=== PATIENT | male | born 1950 | race Caucasian/White ===

== ENCOUNTER 2020-05-07 08:05 | Outpatient (REF) | payer MEDICARE, SELFPAY | END 2020-05-07 08:06 | disposition home or self-care (01) | LOC: HO.LAB 08:05 | PROVIDERS: Visit Provider Internal Medicine | DX: Z20.822 Contact with and (suspected) exposure to COVID-19 (principal) | CPT/HCPCS: 36415; C9803; U0003; U0005 ==

== ENCOUNTER 2020-08-06 10:25 | Outpatient (REF) | payer MEDICARE, SELFPAY ==
[2020-08-06 11:25] LABS: Estimated Average Glucose 160 mg/dL; Hemoglobin A1c % 7.2 %
[2020-08-06 12:31] LABS: Alanine Aminotransferase 21 U/L (0-40); Albumin Level 4.3 g/dL (3.5-5.0); Alkaline Phosphatase 85 U/L (39-117); Aspartate Amino Transferase 17 U/L (5-37); Bilirubin Direct 0.3 mg/dL (0.0-0.5); Bilirubin Total 0.6 mg/dL (0.0-1.0); Cholesterol 158 mg/dL; Glucose Fasting 143 mg/dL (60-99); HDL Cholesterol 62 mg/dL; LDL Cholesterol Calculated 86 mg/dl; Total Protein 6.9 g/dL (6.5-8.0); Triglycerides 52 mg/dL
[2020-08-06 13:30] LABS: Reflex LDLD? No
== END 2020-08-06 10:26 | disposition home or self-care (01) ==
LOC: HO.LNP 10:25
PROVIDERS: Visit Provider Internal Medicine
DX: E78.00 Pure hypercholesterolemia, unspecified (principal); E11.40 Type 2 diabetes mellitus with diabetic neuropathy, unspecified
CPT/HCPCS: 80061; 80076; 82947; 83036

== ENCOUNTER 2020-11-05 11:01 | Outpatient (REF) | payer MEDICARE, SELFPAY ==
--- NOTE | ~2020-11-05 | CT_ITS ---
EXAMINATION: CT CHEST WITHOUT CONTRAST CLINICAL INFORMATION: Lung nodule COMPARISON: Previous chest CT most recent November 2019 TECHNIQUE: Multidetector volumetric CT imaging of the chest was done. Axial MIP volume rendering provided. Sagittal and coronal reformatted images were obtained. This CT examination was performed using dose optimization techniques as appropriate, variously including the following: *Automated exposure control *Adjustment of mA and/or kV according to patient size (this includes techniques or standardized protocols for targeted exams where dose is matched to indication/reason for exam; i.e. extremities or head) *Use of iterative reconstruction technique DLP: 178 mGy-cm FINDINGS: LUNGS: The small pulmonary nodules are stable. Largest pulmonary nodule is a 3 mm calcified right upper lobe nodule axial image 260 series 7. There is evidence of mild paraseptal emphysema. There is evidence of mild biapical pleural parenchymal scarring. MEDIASTINUM: The heart does not appear enlarged. There is severe coronary artery calcification. There is no pericardial effusion. The thoracic aorta is upper normal in size tortuous. PLEURA: There is no pleural effusion. No pleural mass or thickening. AXILLA: There are small bilateral axillary lymph nodes that are stable. No chest wall mass or enlarged axillary lymph nodes are seen. UPPER ABDOMEN: Unremarkable. OSSEOUS STRUCTURES: There are degenerative changes of the spine. There are postsurgical changes to the cervical spine. CT/CT chest wo con IMPRESSION: Stable small pulmonary nodules. Mild emphysema. Severe coronary artery calcification. Upper normal-sized thoracic aorta.
== END 2020-11-05 11:02 | disposition home or self-care (01) ==
LOC: HO.CT 11:01
PROVIDERS: PCP Internal Medicine; Visit Provider Internal Medicine
DX: R91.1 Solitary pulmonary nodule (principal)
CPT/HCPCS: 71250

== ENCOUNTER 2020-11-07 10:11 | Outpatient (REF) | payer MEDICARE, SELFPAY | END 2020-11-07 10:12 | disposition home or self-care (01) | LOC: HO.LAB 10:11 | PROVIDERS: PCP Internal Medicine; Visit Provider Internal Medicine | DX: Z20.822 Contact with and (suspected) exposure to COVID-19 (principal) | CPT/HCPCS: C9803; U0003; U0005 ==

== ENCOUNTER 2020-11-10 10:39 | Emergency (ER) | payer MEDICARE, SELFPAY ==
--- NOTE | ~2020-11-10 | MR_ITS ---
EXAMINATION: MR LUMBAR SPINE WITHOUT CONTRAST CLINICAL INFORMATION: History of ruptured disc. Worsening back pain. COMPARISON: CT scan of the abdomen and pelvis 06/05/2011. TECHNIQUE: MRI of the lumbar spine was obtained using routine sequences without contrast. FINDINGS: Alignment is normal. Vertebral body heights are preserved. There are mixed degenerative endplate changes at L3-L4, L4-L5, and L5-S1. There is loss of intervertebral disc height and T2 signal intensity at multiple levels related to disc degeneration. The tip of the conus medullaris is located at T12-L1. No mass effect on the conus. Visualized distal cord signal intensity is normal. At L1-L2 there is a central annular fissure associated with a bulging disc. No canal stenosis. No mass effect on the traversing or foraminal nerve roots. At L2-L3 there is a diffusely bulging disc. Bilateral facet degenerative change. Mild canal stenosis. Symmetric subarticular zone narrowing causes abutment of both traversing L3 nerve roots. No foraminal nerve root compression. At L3-L4 there is a large complex disc extrusion with a possible sequestered disc fragment located along the left dorsal aspect of the canal causing circumferential compression of the thecal sac effectively resulting in severe stenosis. There is also 1.3 cm caudal subligamentous extension of extruded disc material along the right ventrolateral surface of the canal, well depicted on axial T2 image 17 of 28 series 6. No foraminal nerve root compression. At L4-L5 there is a shallow central protrusion superimposed upon a bulging disc. Advanced bilateral facet degenerative change. No canal stenosis. No substantial mass effect on the traversing or foraminal nerve roots. At L5-S1 there is a broad shallow central extrusion with 0.5 cm caudal subligamentous extension of extruded disc material. Bilateral facet degenerative change. There is subarticular zone narrowing causing abutment of the left traversing S1 nerve root. Mild mass effect on both L5 foraminal nerve roots. Limited visualization of the retroperitoneal anatomy reveals a well marginated benign-appearing cystic lesion within the right kidney. Psoas and paraspinal muscle groups are symmetric. MR/MR lumbar spine wo con IMPRESSION: There is a complex disc herniation at L3-L4 with a possible sequestered disc fragment located along the left dorsal aspect of the canal causing circumferential compression of the thecal sac effectively resulting in severe stenosis. There is also caudal subligamentous propagation of disc material along the right ventrolateral aspect of the canal.
[2020-11-10 11:03] VITALS: BP 123/85; PULSE 95; RESP 16; TEMP 37.1; O2SAT 95; BMI 24.7
[2020-11-10] MEDS: Ondansetron ODT 4 MG TAB.RAPDIS TRANSLINGU (11:51)
[2020-11-10] MEDS: oxyCODONE HCl Immed Release 5 MG TABLET PO (11:51)
--- NOTE | 2020-11-10 11:53 | PC.NURSE ---
mri screening form completed
[2020-11-10 12:10] LABS: MANUAL DIFF FLAG NO
[2020-11-10 12:13] LABS: Basophils Percent Auto 0.3 % (0-2); Eosinophils Absolute Auto 0.1 X10*3/uL (0.0-0.4); Eosinophils Percent Auto 1.7 % (0-4); Hematocrit 44.4 % (42-52); Hemoglobin 15.2 g/dl (14.0-18.0); Imm Gran Abs Auto 0.02 X10*3/uL (0.00-0.03); Imm Gran Pct Auto 0.3 % (0.0-0.4); Lymphocytes Absolute Auto 2.3 X10*3/uL (1.2-4.9); Lymphocytes Percent Auto 31.7 % (20-40); Mean Corpuscular HGB Conc 34.2 g/dl (31.0-36.0); Mean Corpuscular Hemoglobin 31.9 pg (27.0-33.0); Mean Corpuscular Volume 93.1 fL (80-98); Mean Platelet Volume 9.5 fL (9.4-12.4); Monocytes Absolute Auto 0.8 X10*3/uL (0.1-1.2); Monocytes Percent Auto 11.7 % (2-11); Neutrophils Absolute Auto 3.9 X10*3/uL (2.0-8.3); Neutrophils Percent Auto 54.3 % (45-73); Platelet Count 202 X10*3/uL (160-400); Red Blood Count 4.77 X10*6/uL (4.60-5.80); Red Cell Distribution Width 13.2 % (11.0-16.0); White Blood Count 7.1 X10*3/uL (4.8-10.8)
[2020-11-10 12:19] LABS: Prothrombin Time 11.5 SEC (9.9-13.0)
--- NOTE | 2020-11-10 12:28 | ED_ITS ---
HPI - Back Pain/Injury General Chief Complaint: Back Pain/Injury Stated Complaint: Sciatica Time Seen by Provider: 11/10/20 11:29 Source: patient Mode of arrival: ambulatory Limitations: no limitations History of Present Illness HPI Narrative: 70-year-old male with a past medical history of a ruptured Disc with a past surgical history of Laminectomy 20 years ago presenting to the ED with complaints of acute on chronic worsening lower back/right buttocks pain radiating to his right foot since yesterday worse today with numbness to the right leg and a limping gait. He reports he has intermittent acute on chronic lower back/right buttocks pain radiating to his right lower extremity where he usually takes Tylenol and muscle relaxers and it takes away his pain although he reports he has taken multiple tablets of Tylenol and muscle relaxers over the past 24 hours and no symptomatic relief at all. Therefore he came here for further evaluation and treatment. MD elicited complaint: back pain Pertinent past history: prior back pain, kidney stones and back surgery Onset (ago): day(s) (Since yesterday worse today) Timing: constant and progressively worsening Severity: severe Pain scale (0-10): 10 Similar Symptoms Previously: Yes Quality: sharp and aching Location: sacrum (Right buttocks) Radiation: right upper leg and right leg below the knee Exacerbating factors: movement and walking Relieving factors: none Associated symptoms: numbness and difficulty walking (Limping gait to right lower extremity) Treatments prior to arrival: other (See above) Work related injury: No Related Data Previous Rx's Medication Instructions Recorded acetaminophen 500 mg tablet 1,000 mg PO QID PRN #14 tab 11/10/20 (Tylenol Extra Strength) diazepam 10 mg tablet (Valium) 10 mg PO TID PRN #10 tab 11/10/20 ibuprofen 800 mg tablet 800 mg PO Q8H PRN #14 tab 11/10/20 ondansetron HCl 4 mg tablet 4 mg PO Q8H PRN #14 tab 11/10/20 (Zofran) oxycodone 5 mg tablet 5 mg PO BID PRN #10 tab 11/10/20 prednisone 20 mg tablet 40 mg PO DAILY 5 Days #10 tab 11/10/20 Allergies Allergy/AdvReac Type Severity Reaction Status Date / Time No Known Allergies Allergy Unverified 12/22/19 15:35 Review of Systems Review of Systems: Constitutional : No trauma, No Weight loss, No Fever, No Chills, ENT/Mouth : No Hearing loss, No Ear Pain, No Nasal Congestion, No Sinus Pain, No Hoarseness, No sore throat, No Rhinorrhea, No Swallowing Difficulty Cardiovascular : No Chest Pain, No SOB Respiratory : No Cough, No Dyspnea Gastrointestinal : No Nausea, No Vomiting, No Diarrhea, No abdominal Pain, No Hematochezia, No Melena Genitourinary : No Dysuria, No Urinary Frequency, No Hematuria, No Urinary or Bowel Incontinence/retention Musculoskeletal : Positive Back pain, No neck pain, No joint stiffness, No joint swelling Skin : No Skin Lesions, No rash or signs of infection Neuro : Positive right lower extremity numbness/paresthesia, No Weakness, No headache, no loss of bowel or bladder incontinence, no saddle anesthesia, Focal weakness, No radiation Denies history of IV drug usage. Yes all other systems are reviewed and are negative PMFSH Past Medical History Attestation statement: The following information was validated with the patient. Medical History Diabetes Hypertension Kidney stone Sciatica Surgical History History of hernia surgery History of laminectomy Previous back surgery Social History Social History Alcohol intake: never Use of substances other than those prescribed or required for medical reasons: No Advance Directives: No Advance Directives Information Provided: Yes Physical Exam Vital Signs: Vital Signs: Last Vital Signs Temp 98.7 F 11/10/20 11:03 Pulse 95 11/10/20 11:03 Resp 16 11/10/20 11:03 BP 123/85 11/10/20 11:03 Pulse Ox 95 11/10/20 11:03 Body Mass Index 24.7 vital signs have been reviewed as normal and appeared to be correct. Blood pressure normal. Heart rate normal. Respiration rate normal. Temperature normal. Oxygen saturation normal. Appearance: Alert. Oriented X3. Patient appears to be in pain otherwise no other acute distress. Head: Normal external exam. Normocephalic. Atraumatic. Eyes: PERRLA. EOMI. Conjunctiva and sclera normal. Eyelids normal. ENT: Pharynx normal. Uvula midline. Moist mucous membranes. Neck: Normal inspection. Neck supple. FROM. No adenopathy. No meningeal signs. CVS: Normal heart rate and rhythm. Heart sound normal. No murmurs noted. Pulses normal throughout. Respiratory: No respiratory distress. Painless inspiration. Breath sounds normal. No wheezes/rales/rhonchi noted. Chest nontender. No accessory muscle usage noted or decreased air movement noted. Abdomen: Soft and nontender. Bowel sounds normal in all 4 quadrants. No distention noted. No organomegaly noted. No visible injury noted. Back: No CVA tenderness. Full range of motion noted. No obvious deformities, or edema. Mild para-spinal muscular tenderness from lumbar region to coccyx. Full ROM in back and lower extremities. 5/5 strength hip extension/flexion, abduction, adduction. Mild Lumbar pain with hip flexion against resistance. Straight leg raise test positive on right; Straight leg raise test negative on left; Reflexes normal ankle and knee bilaterally; EHL motor strength normal bilaterally. No rashes/lesion/induration/fluctuance or signs infection noted. : Supervised by LEAH Brown. Normal external rectal exam normal sensation/normal sphincter tone. Skin: Skin warm and dry. Normal skin color. Normal skin turgor. No rashes/lesions/lacerations noted. Extremities: No lower extremity edema. Extremities exhibit normal range of motion. Extremities nontender. Neuro: Oriented X 3. No motor deficit. No sensory deficit. Reflexes normal. Patient has a limping gait to the right lower extremity. Course Course Course Narrative: Pt c likely muscular pain, but could be herniated disc. Noelle ent reports numbness to right lower extremity although has sensation with soft and hard palpation. He has a limping gait to the right lower extremity otherwise within normal limits. He has a normal rectal exam/normal sensation to the rectum and a normal sphincter tone. Not c/w AAA/epidural abscess/dissection. Patient did have a history of ruptured Disc with similar symptoms to today in the past 20 years ago with surgery therefore will obtain an MRI of lumbar spine without contrast otherwise No high risk Hx (Incont, fever, immunosupp, recent surgery/LP, coag, signif trauma, wt loss, puls mass, hx/o Ca, TB, or IVDU). Not c/w Pyelo/UTI/kidney stone/spinal fx. Not cauda equina syndrome. Will provide symptomatic treatment 5 mg oxycodone and 4 mg of Zofran obtain some basic labs along with MRI lumbar spine and re-evaluate. Reevaluation(s) Reevaluation #1: - labs reviewed and within normal limits. UA within normal l imits no evidence of UTI. - MRI of lumbar spine revealed chronic changes and multiple herniated disc not consistent with cauda equina therefore at this time I gave a copy of the MRI results to the patient can bring it to his PCP so they can refer him to a customer contact specialist and will DC home with symptomatic treatment instructions to return if any new or worsening symptoms to follow up with primary care provider on Thursday as he reported. Patient understands agrees with this plan Time: 14:15 MDM - Back Pain/Injury Medical Records Attestation: I reviewed the patient's medical records. Lab Data Attestation: I reviewed the patient's lab results. Result diagrams: 11/10/20 12:05 11/10/20 12:05 Labs: Lab Results 11/10/20 11/10/20 11/10/20 Range/Units 12:05 12:05 12:05 WBC 7.1 (4.8-10.8) X10*3/uL RBC 4.77 (4.60-5.80) X10*6/uL Hgb 15.2 (14.0-18.0) g/dl Hct 44.4 (42-52) % MCV 93.1 (80-98) fL MCH 31.9 (27.0-33.0) pg MCHC 34.2 (31.0-36.0) g/dl RDW 13.2 (11.0-16.0) % Plt Count 202 (160-400) X10*3/uL MPV 9.5 (9.4-12.4) fL Immature Gran % (Auto) 0.3 (0.0-0.4) % Neut % (Auto) 54.3 (45-73) % Lymph % (Auto) 31.7 (20-40) % [place] % (Auto) 11.7 H (2-11) % Eos % (Auto) 1.7 (0-4) % Baso % (Auto) 0.3 (0-2) % Lymph # (Auto) 2.3 (1.2-4.9) X10*3/uL [place] # (Auto) 0.8 (0.1-1.2) X10*3/uL Eos # (Auto) 0.1 (0.0-0.4) X10*3/uL Baso # (Auto) 0.0 (0.0-0.2) X10*3/uL Abs Immat Gran (auto) 0.02 (0.00-0.03) X10*3/uL Absolute Neuts (auto) 3.9 (2.0-8.3) X10*3/uL Absolute Nucleated RBC 0.000 (0.0-0.012) X10*3/uL Nucleated RBC % (auto) 0.0 (0.0-0.2) /100WBC PT 11.5 (9.9-13.0) SEC INR 1.0 (0.9-1.1) Sodium 138 (135-145) mmol/L Potassium 4.2 (3.3-5.1) mmol/L Chloride 105 (96-108) mmol/L Carbon Dioxide 24 (22-29) mmol/L Anion Gap 13 (12-20) BUN 15 (9-16) mg/dL Creatinine 0.84 (0.5-1.4) mg/dL Estim Creat Clear Calc 84.1 Estimated GFR > 60 Random Glucose 121 H (60-115) mg/dL Calcium 9.3 (8.4-10.2) mg/dL Magnesium 1.9 (1.6-2.6) mg/dL Total Bilirubin 0.4 (0.0-1.0) mg/dL AST 20 (5-37) U/L ALT 25 (0-40) U/L Alkaline Phosphatase 76 (39-117) U/L Total Protein 6.5 (6.5-8.0) g/dL Albumin 3.9 (3.5-5.0) g/dL Urine Color Urine Appearance Urine pH (5.0-8.0) Ur Specific [place] (1.005-1.025) Urine Protein (NEG-TRACE) MG/DL Urine Glucose (UA) (NEG) MG/DL Urine Ketones (NEG) MG/DL Urine Blood (NEG) Urine Nitrite (NEG) Ur Leukocyte Esterase (NEG) 11/10/20 Range/Units 13:41 WBC (4.8-10.8) X10*3/uL RBC (4.60-5.80) X10*6/uL Hgb (14.0-18.0) g/dl Hct (42-52) % MCV (80-98) fL MCH (27.0-33.0) pg MCHC (31.0-36.0) g/dl RDW (11.0-16.0) % Plt Count (160-400) X10*3/uL MPV (9.4-12.4) fL Immature Gran % (Auto) (0.0-0.4) % Neut % (Auto) (45-73) % Lymph % (Auto) (20-40) % [place] % (Auto) (2-11) % Eos % (Auto) (0-4) % Baso % (Auto) (0-2) % Lymph # (Auto) (1.2-4.9) X10*3/uL [place] # (Auto) (0.1-1.2) X10*3/uL Eos # (Auto) (0.0-0.4) X10*3/uL Baso # (Auto) (0.0-0.2) X10*3/uL Abs Immat Gran (auto) (0.00-0.03) X10*3/uL Absolute Neuts (auto) (2.0-8.3) X10*3/uL Absolute Nucleated RBC (0.0-0.012) X10*3/uL Nucleated RBC % (auto) (0.0-0.2) /100WBC PT (9.9-13.0) SEC INR (0.9-1.1) Sodium (135-145) mmol/L Potassium (3.3-5.1) mmol/L Chloride (96-108) mmol/L Carbon Dioxide (22-29) mmol/L Anion Gap (12-20) BUN (9-16) mg/dL Creatinine (0.5-1.4) mg/dL Estim Creat Clear Calc Estimated GFR Random Glucose (60-115) mg/dL Calcium (8.4-10.2) mg/dL Magnesium (1.6-2.6) mg/dL Total Bilirubin (0.0-1.0) mg/dL AST (5-37) U/L ALT (0-40) U/L Alkaline Phosphatase (39-117) U/L Total Protein (6.5-8.0) g/dL Albumin (3.5-5.0) g/dL Urine Color YELLOW Urine Appearance CLEAR Urine pH 6.0 (5.0-8.0) Ur Specific [place] 1.020 (1.005-1.025) Urine Protein TRACE (NEG-TRACE) MG/DL Urine Glucose (UA) NEG (NEG) MG/DL Urine Ketones NEG (NEG) MG/DL Urine Blood NEG (NEG) Urine Nitrite NEG (NEG) Ur Leukocyte Esterase NEG (NEG) Imaging Data MRI of lumbar spine: Attestation: I personally reviewed and interpreted this imaging study as follows: Radiologist's impression: FINDINGS: Alignment is normal. Vertebral body heights are preserved. There are mixed degenerative endplate changes at L3-L4, L4-L5, and L5-S1. There is loss of intervertebral disc height and T2 signal intensity at multiple levels related to disc degeneration. The tip of the conus medullaris is located at T12-L1. No mass effect on the conus. Visualized distal cord signal intensity is normal. At L1-L2 there is a central annular fissure associated with a bulging disc. No canal stenosis. No mass effect on the traversing or foraminal nerve roots. At L2-L3 there is a diffusely bulging disc. Bilateral facet degenerative change. Mild canal stenosis. Symmetric subarticular zone narrowing causes abutment of both traversing L3 nerve roots. No foraminal nerve root compression. At L3-L4 there is a large complex disc extrusion with a possible sequestered disc fragment located along the left dorsal aspect of the canal causing circumferential compression of the thecal sac effectively resulting in severe stenosis. There is also 1.3 cm caudal subligamentous extension of extruded disc material along the right ventrolateral surface of the canal, well depicted on axial T2 image 17 of 28 series 6. No foraminal nerve root compression. At L4-L5 there is a shallow central protrusion superimposed upon a bulging disc. Advanced bilateral facet degenerative change. No canal stenosis. No substantial mass effect on the traversing or foraminal nerve roots. At L5-S1 there is a broad shallow central extrusion with 0.5 cm caudal subligamentous extension of extruded disc material. Bilateral facet degenerative change. There is subarticular zone narrowing causing abutment of the left traversing S1 nerve root. Mild mass effect on both L5 foraminal nerve roots. Limited visualization of the retroperitoneal anatomy reveals a well marginated benign-appearing cystic lesion within the right kidney. Psoas and paraspinal muscle groups are symmetric. MR/MR lumbar spine wo con IMPRESSION: There is a complex disc herniation at L3-L4 with a possible sequestered disc fragment located along the left dorsal aspect of the canal causing circumferential compression of the thecal sac effectively resulting in severe stenosis. There is also caudal subligamentous propagation of disc material along the right ventrolateral aspect of the canal. Critical Care Time Critical Care Time Critical Care Time: Yes Total Critical Care Time: 60 Attestation: I personally attest to this time spent taking care of the patient Discharge Plan Discharge Clinical Impression: Sciatica, Lumbar radiculopathy, Herniated disc Patient Disposition: Home, Self-Care Instructions: Lumbar Disc Herniation (ED), Lower Back Exercises (ED) Prescriptions: New ibuprofen 800 mg tablet 800 mg PO Q8H PRN (Reason: pain) Qty: 14 RF: 0 ondansetron HCl [Zofran] 4 mg tablet 4 mg PO Q8H PRN (Reason: nausea and vomiting) Qty: 14 RF: 0 diazepam [Valium] 10 mg tablet 10 mg PO TID PRN (Reason: muscle spasm) Qty: 10 RF: 0 prednisone 20 mg tablet 40 mg PO DAILY 5 Days Qty: 10 RF: 0 acetaminophen [Tylenol Extra Strength] 500 mg tablet 1,000 mg PO QID PRN (Reason: fever or pain) Qty: 14 RF: 0 oxycodone 5 mg tablet 5 mg PO BID PRN (Reason: pain) Qty: 10 RF: 0 Referrals: Jensen Mark MD [Primary Care Provider] - 2 days Print Language: Latvian
[2020-11-10 12:52] LABS: Alanine Aminotransferase 25 U/L (0-40); Albumin Level 3.9 g/dL (3.5-5.0); Alkaline Phosphatase 76 U/L (39-117); Anion Gap 13 (12-20); Aspartate Amino Transferase 20 U/L (5-37); Bilirubin Total 0.4 mg/dL (0.0-1.0); Blood Urea Nitrogen 15 mg/dL (9-16); Calcium 9.3 mg/dL (8.4-10.2); Carbon Dioxide 24 mmol/L (22-29); Chloride 105 mmol/L (96-108); Creatinine Clr Calc Pharmacy 84.1; Estimated Glomerular Filt Rate > 60; Glucose Random 121 mg/dL (60-115); Magnesium 1.9 mg/dL (1.6-2.6); Potassium 4.2 mmol/L (3.3-5.1); Sodium 138 mmol/L (135-145); Total Protein 6.5 g/dL (6.5-8.0)
[2020-11-10 13:47] LABS: Glucose Urine UA NEG (NEG); Leukocyte Esterase Urine NEG (NEG); Nitrite Urine NEG (NEG); Urine Blood NEG (NEG); Urine Ketones NEG (NEG); Urine Protein TRACE MG/DL (NEG-TRACE)
[2020-11-10 13:50] LABS: Appearance Urine CLEAR; Color Urine YELLOW
== END 2020-11-10 14:19 | disposition home or self-care (01) ==
PROVIDERS: Physician Assistant Medical; Emergency Provider Emergency Medicine Emergency Medical Services; PCP Internal Medicine
DX: M54.16 Radiculopathy, lumbar region (principal); M54.41 Lumbago with sciatica, right side; M51.26 Other intervertebral disc displacement, lumbar region; E11.9 Type 2 diabetes mellitus without complications; I10 Essential (primary) hypertension; Z87.442 Personal history of urinary calculi
CPT/HCPCS: 36415; 72148; 80053; 81003; 83735; 85025; 85610; 99284

== ENCOUNTER 2020-11-12 12:01 | Emergency (ER) | payer MEDICARE, SELFPAY ==
[2020-11-12 12:18] VITALS: BP 140/77; PULSE 69; TEMP 36.6; O2SAT 96; BMI 24.7
--- NOTE | 2020-11-12 13:39 | ED_ITS ---
HPI - Back Pain/Injury General Chief Complaint: Back Pain/Injury Stated Complaint: back pain Time Seen by Provider: 11/12/20 13:15 Source: patient Mode of arrival: ambulatory Limitations: no limitations History of Present Illness HPI Narrative: 70-year-old male presents for worsening back pain. Patient was helping his son move 3 days ago, was lifting heavy boxes, moving as 600 lb safe out of the back by a truck. Patient has acute on chronic low back pain mostly in the right buttocks radiating to the right lower extremity Patient has no bowel or bladder incontinence, no fevers, is not an IV drug user, no history of cancer, denies saddle paresthesias, leg weakness or numbness. Patient was seen in the emergency room 2 days ago, presents with low-grade back pain with radiation into his right lower extremity. At that time patient had a normal rectal exam with normal sphincter tone and normal perineal sensation. Had MRI showed a large complex is disc herniation with disc fragments causing severe stenosis. This patient was prescribed Valium, prednisone, oxycodone, Zofran, ibuprofen, and Tylenol. Patient states that the pain medicine only works for 2 hours, and then it wears off and he was then 8/10 pain with movement and 6/10 pain with rest. States he can not get comfortable. Patient called primary care provider who referred him to the emergency room. Patient has a past medical history of sciatica, kidney stone, hypertension, diabetes, he had a laminectomy 20 years ago and has cervical spine bone fusion. MD elicited complaint: back pain Pertinent past history: prior back pain Onset (ago): day(s) (3) Timing: constant Severity: severe Pain scale (0-10): 8 Context: while lifting Associated symptoms: denies other symptoms Related Data Previous Rx's Medication Instructions Recorded acetaminophen 500 mg tablet 1,000 mg PO QID PRN #14 tab 11/10/20 (Tylenol Extra Strength) diazepam 10 mg tablet (Valium) 10 mg PO TID PRN #10 tab 11/10/20 ibuprofen 800 mg tablet 800 mg PO Q8H PRN #14 tab 11/10/20 ondansetron HCl 4 mg tablet 4 mg PO Q8H PRN #14 tab 11/10/20 (Zofran) oxycodone 5 mg tablet 5 mg PO BID PRN #10 tab 11/10/20 prednisone 20 mg tablet 40 mg PO DAILY 5 Days #10 tab 11/10/20 oxycodone 5 mg capsule 5 mg PO Q6H PRN #12 cap 11/12/20 Allergies Allergy/AdvReac Type Severity Reaction Status Date / Time No Known Allergies Allergy Unverified 12/22/19 15:35 Review of Systems Review of Systems: Constitutional : No Weight loss, No Fever, No Chills, No Night Sweats,No Fatigue, No Malaise ENT/Mouth : No Hearing loss, No Ear Pain, No Nasal Congestion, NoSinus Pain, No Hoarseness, No sore throat, No Rhinorrhea, NoSwallowing Difficulty Eyes: No Eye Pain, No Swelling, No Redness, No Foreign Body, NoDischarge, No Vision Changes Cardiovascular : No Chest Pain, No SOB, No Dyspnea on Exertion, NoOrthopnea, No Edema, No Palpitations Respiratory : No Cough, No Sputum, No Wheezing, No Smoke Exposure, No Dyspnea Gastrointestinal : No Nausea, No Vomiting, No Diarrhea, NoConstipation, No abdominal Pain, No Hematochezia, No Melena, no bowel incontinence Genitourinary : no irregular bleeding, No Dysuria, No UrinaryFrequency, No Hematuria, No Urinary Incontinence, No Urgency, No FlankPain, No Urinary Flow Changes, No Hesitancy Musculoskeletal : back pain Skin : No Skin Lesions, No rash Neuro : No Weakness, No Numbness, No Paresthesias, No Loss ofConsciousness, No Dizziness, No Headache Psych : No Anxiety/Panic, No Depression, No SI/HI/AH/VH, No Social Issues, Heme/Lymph: No Bruising, No Bleeding,No Lymphadenopathy Endocrine : No Polyuria, No Polydipsia, No Temperature Intolerance Yes all other systems are reviewed and are negative Neurologic: Denies confusion and Denies Sensory deficit (Neuro) Psychiatric: Psychiatric: Denies confusion [facility] Past Medical History Medical History Diabetes Hypertension Kidney stone Sciatica Surgical History History of hernia surgery History of laminectomy Previous back surgery Social History Social History Alcohol intake: never Advance Directives: No Advance Directives Information Provided: No Physical Exam Vital Signs: Vital Signs: Last Vital Signs Temp 97.9 F 11/12/20 12:18 Pulse 69 11/12/20 12:18 BP 140/77 H 11/12/20 12:18 Pulse Ox 96 11/12/20 12:18 Body Mass Index 24.7 Const: General: healthy appearing, alert, awake and in distress mild (due to pain); No comfortable, confusion or diaphoretic Nutritional Appearance: average body habitus and well nourished Orientation/consciousness: patient oriented x3 and No confusion Limitations: no limitations Eyes: Pupils: Equal, round and reactive pupils present EOM: EOMs intact bilaterally Resp: Effort & Inspection: normal respiratory effort Auscultation: clear to auscultation bilaterally, no crackles, no rales, no rhonchi and no wheezes Cardio: Rate: regular rate Rhythm: regular rhythm Heart sounds: S1 normal heart sound present and S2 normal heart sound present GI: Inspection: Yes normal to inspection Palpation (GI): Soft to palpation and nontender Rectal Exam - Male: Yes visual inspection normal and Yes normal sphincter tone Back/Spine/Pelvis: Other: Patient has intact Dorsiflexion and plantar flexion motor strength. Patient is able to walk with an antalgic gait. Patient has 4/5 motor strength with right knee extension, 5/5 with the left knee extension. Cervical Spine: normal cervical lordosis, cervical ROM normal, No Cervical spine tenderness and No step off deformity Thoracic/Lumbar Spine: Thoracic/lumbar spine scar(s), No thoraco-lumbar ROM normal, straight leg raise negative bilaterally, pain with thoraco-lumbar ROM, thoraco-lumbar ROM limited and lumbar spinal tenderness at L3 and at L4 Skin: General skin exam: no rashes or lesions noted Neuro: General: patient oriented x3, no focal motor deficits, deep tendon reflexes 2+ bilaterally and No confusion Cranial nerves: Yes Equal, round and reactive pupils present Sensory Exam: No Sensory deficit (Neuro) Deep tendon reflexes (DTR's): Left patellar reflex intensity grade: 1+ and Right ankle reflex intensity grade: 1+ Extrem: Right lower extremity: full ROM Left lower extremity: full ROM Course Course Course Narrative: 62-year-old male presents with continuing back pain. Patient was seen in the ER 2 days ago, had an MRI which showed a complex disc herniation at L3-L4 with a possible sequestered disc fragment located along the left dorsal aspect of the canal causing circumferential compression of the thecal sac effectively resulting isevere stenosis. There is also caudal subligamentous propagation ofdisc material along the right ventrolateral aspect of the canal. Today, patient denies red flag symptoms such as bowel or bladder incontinence, fevers, leg weakness, saddle paresthesias. On exam today, patient has normal rectal tone, intact perineal sensation, negative straight leg raise, intact lower extremity pulses, sensation, intact strength for bilateral dorsiflexion and plantar flexion. Patient is able to stand and walk. Only deficit that has right knee extension is weaker than left knee extension. Call neurosurgery [facility] we uploaded images for their viewing. Spoke with Hollis, neurosurgery, who stated that patient did have a large disc herniation, but with no focal neuro deficits there is no need for urgent surgery. Suggested we admit patient for pain management and possible spinal steroid injection. She stated they will establish an appointment in 2 weeks for close follow-up and will contact the patient. Despite PCP sending patient here for possible admission for pain control, when I discussed admission with patient, he refused admission. Looked the patient up in [facility], patient only had recent Valium and oxycodone prescriptions from ER visit 2 days ago. Prescribed more oxycodone, gave patient [facility] neurosurgery phone number to follow up, counseled if he had bowel or bladder incontinence, leg weakness, new weakness of feet, numbness or tingling in his groin, he should return immediately to the emergency room. Questions were answered, patient verbalized agreement understanding of the plan. MDM - Back Pain/Injury Lab Data Labs: Lab Results 11/12/20 11/12/20 Range/Units 14:32 15:57 POC Glucose 212 H (60-115) mg/dL Urine Color YELLOW Urine Appearance CLEAR Urine pH 6.0 (5.0-8.0) Ur Specific [place] 1.025 (1.005-1.025) Urine Protein 1+ H (NEG-TRACE) MG/DL Urine Glucose (UA) >=1000 H (NEG) MG/DL Urine Ketones NEG (NEG) MG/DL Urine Blood NEG (NEG) Urine Nitrite NEG (NEG) Ur Leukocyte Esterase NEG (NEG) Urine RBC 1-4 (0) /HPF Urine WBC 0 (0-4) /HPF Ur Squamous Epith Cells NONE /LPF Urine Bacteria NONE /LPF Discharge Plan Discharge Clinical Impression: Acute herniated disc Patient Disposition: Home, Self-Care Instructions: Acute Low Back Pain (ED) Additional Instructions: [facility] neurosurgery will call you for an outpatient appointment. Their number is [phone], please call them tomorrow to make sure that they have established an appointment for you. Guru 3 more days of oxycodone for you, you may take every 6 hours as needed. Please also take ibuprofen and Tylenol. You can take 1000 mg of Tylenol every 8 hours, not to exceed 3000 mg of Tylenol in 24 hours. You may also take 800 mg of ibuprofen every 8 hours. Please call your primary care provider tomorrow to update them on your visit today. If you have any leg weakness, numbness or tingling in your groin, if urine continence of bowel or bladder, please return to emergency room immediately. Prescriptions: New oxycodone 5 mg capsule 5 mg PO Q6H PRN (Reason: pain) Qty: 12 RF: 0 No Action ibuprofen 800 mg tablet 800 mg PO Q8H PRN (Reason: pain) Qty: 14 RF: 0 ondansetron HCl [Zofran] 4 mg tablet 4 mg PO Q8H PRN (Reason: nausea and vomiting) Qty: 14 RF: 0 diazepam [Valium] 10 mg tablet 10 mg PO TID PRN (Reason: muscle spasm) Qty: 10 RF: 0 prednisone 20 mg tablet 40 mg PO DAILY 5 Days Qty: 10 RF: 0 acetaminophen [Tylenol Extra Strength] 500 mg tablet 1,000 mg PO QID PRN (Reason: fever or pain) Qty: 14 RF: 0 oxycodone 5 mg tablet 5 mg PO BID PRN (Reason: pain) Qty: 10 RF: 0 Interventions: ED Discharge Assessment Last Done: 11/12/20 16:01 Discharge Date/Time: 11/12/20 16:03
[2020-11-12 14:45] LABS: Glucose Urine UA >=1000 MG/DL (NEG); Leukocyte Esterase Urine NEG (NEG); Nitrite Urine NEG (NEG); Specific Gravity - Urine 1.025 (1.005-1.025); Urine Blood NEG (NEG); Urine Ketones NEG (NEG); Urine Protein 1+ MG/DL (NEG-TRACE)
[2020-11-12 14:47] LABS: Appearance Urine CLEAR; Color Urine YELLOW
[2020-11-12 14:59] LABS: WBC Urine 0 /HPF (0-4)
[2020-11-12] MEDS: oxyCODONE HCl Immed Release 5 MG TABLET PO (15:50)
[2020-11-12 16:03] LABS: Glucose, Whole Blood 212 mg/dL (60-115)
[2020-11-12 18:25] LABS: Influenza A PCR NEGATIVE (Negative); Influenza B PCR NEGATIVE (Negative); Resp Syncy Virus RNA Qual PCR NEGATIVE (Negative); SARS COV2 PCR INHOUSE NEGATIVE (Negative)
== END 2020-11-12 16:03 | disposition home or self-care (01) ==
PROVIDERS: Physician Assistant; Emergency Provider Emergency Medicine; PCP Internal Medicine
DX: M51.26 Other intervertebral disc displacement, lumbar region (principal); Z79.899 Other long term (current) drug therapy; Z20.822 Contact with and (suspected) exposure to COVID-19
CPT/HCPCS: 0241U; 36415; 81001; 82947; 96374; 99284

== ENCOUNTER 2021-02-25 10:11 | Outpatient (REF) | payer MEDICARE, SELFPAY ==
[2021-02-25 10:14] LABS: MANUAL DIFF FLAG NO
[2021-02-25 10:42] LABS: Basophils Percent Auto 0.4 % (0-2); Eosinophils Absolute Auto 0.2 X10*3/uL (0.0-0.4); Eosinophils Percent Auto 2.5 % (0-4); Hematocrit 46.7 % (42.0-52.0); Hemoglobin 15.7 g/dl (14.0-18.0); Imm Gran Abs Auto 0.03 X10*3/uL (0.00-0.03); Imm Gran Pct Auto 0.3 % (0.0-0.4); Lymphocytes Absolute Auto 3.2 X10*3/uL (1.2-4.9); Lymphocytes Percent Auto 33.4 % (20-40); Mean Corpuscular HGB Conc 33.6 g/dl (31.0-36.0); Mean Corpuscular Hemoglobin 31.8 pg (27.0-33.0); Mean Corpuscular Volume 94.5 fL (80.0-98.0); Mean Platelet Volume 10.7 fL (9.4-12.4); Monocytes Percent Auto 10.5 % (2-11); Neutrophils Absolute Auto 5.1 x10*3/uL (2.0-8.3); Neutrophils Percent Auto 52.9 % (45-73); Platelet Count 264 X10*3/uL (160-400); Red Blood Count 4.94 X10*6/uL (4.60-5.80); Red Cell Distribution Width 12.7 % (11.0-16.0); White Blood Count 9.7 X10*3/uL (4.8-10.8)
[2021-02-25 10:53] LABS: Appearance Urine CLEAR; Color Urine YELLOW; Glucose Urine UA NEG (NEG); Leukocyte Esterase Urine NEG (NEG); Nitrite Urine NEG (NEG); Specific Gravity - Urine 1.025 (1.005-1.025); Urine Blood NEG (NEG); Urine Ketones NEG (NEG); Urine Protein TRACE MG/DL (NEG-TRACE)
[2021-02-25 11:05] LABS: Estimated Average Glucose 192 mg/dL; Hemoglobin A1c % 8.3 %
[2021-02-25 11:12] LABS: Alanine Aminotransferase 25 U/L (0-40); Albumin Level 4.1 g/dL (3.5-5.0); Alkaline Phosphatase 87 U/L (39-117); Anion Gap 13 (12-20); Aspartate Amino Transferase 15 U/L (5-37); Bilirubin Total 0.8 mg/dL (0.0-1.0); Blood Urea Nitrogen 14 mg/dL (9-16); Calcium 9.4 mg/dL (8.4-10.2); Carbon Dioxide 25 mmol/L (22-29); Chloride 105 mmol/L (96-108); Cholesterol 165 mg/dL; Estimated Glomerular Filt Rate > 60; Glucose Fasting 177 mg/dL (60-99); HDL Cholesterol 61 mg/dL; LDL Cholesterol Calculated 87 mg/dl; Potassium 4.4 mmol/L (3.3-5.1); Sodium 139 mmol/L (135-145); Total Protein 6.7 g/dL (6.5-8.0); Triglycerides 88 mg/dL
[2021-02-25 11:14] LABS: Creatinine Urine 111.03 mg/dL; Microalbum/Creatinine Ratio Ur 114.3 ug/mg cr
[2021-02-25 11:33] LABS: PSA,Total (Free>4and<10) 1.12 ng/mL (0.00-4.00)
== END 2021-02-25 10:12 | disposition home or self-care (01) ==
LOC: HO.LNP 10:11
PROVIDERS: PCP Internal Medicine; Visit Provider Internal Medicine
DX: E11.40 Type 2 diabetes mellitus with diabetic neuropathy, unspecified (principal); E78.00 Pure hypercholesterolemia, unspecified; I10 Essential (primary) hypertension; I73.00 Raynaud's syndrome without gangrene; N40.0 Benign prostatic hyperplasia without lower urinary tract symptoms
CPT/HCPCS: 80053; 80061; 81003; 82043; 83036; 84153; 85025

== ENCOUNTER 2021-04-18 08:05 | Outpatient (REF) | payer MEDICARE, SELFPAY ==
--- NOTE | ~2021-04-18 | US_ITS ---
EXAMINATION: US RETROPERITONEAL LIMITED (AORTA) CLINICAL INFORMATION: AAA without rupture. COMPARISON: Ultrasound aorta 10/11/2018 and 11/09/2017. TECHNIQUE: Lujan-scale, color Doppler and spectral Doppler evaluation of the abdominal aorta. FINDINGS: There are diffuse atherosclerotic calcifications. The measurements of the aorta in maximum AP and transverse dimensions respectively are as follows: Proximal: 2.9 x 2.9 cm. Mid: 2.9 x 2.7 cm. Distal: 2.6 x 2.5 cm. PSV: 92 cm/s. The measurements of the common iliac arteries in maximum AP and TRV dimensions are as follows: Right Common Iliac Artery: 1.2 x 1.4 cm. Left Common Iliac Artery: 1.2 x 1.3 cm. US/US abdominal aortic aneurysm IMPRESSION: There is significant ectasia of the abdominal aorta at its proximal and mid segments, as well as of the right common iliac artery. Findings are borderline in assessment for aneurysm. Recommend follow-up ultrasound surveillance.
== END 2021-04-18 08:06 | disposition home or self-care (01) ==
LOC: HO.US 08:05
PROVIDERS: Visit Provider Internal Medicine
DX: I71.4 Abdominal aortic aneurysm, without rupture (principal)
CPT/HCPCS: 76706

== ENCOUNTER 2021-09-13 10:50 | Outpatient (REF) | payer MEDICARE, SELFPAY ==
[2021-09-13 11:10] LABS: Estimated Average Glucose 166 mg/dL; Hemoglobin A1c % 7.4 %
[2021-09-13 11:17] LABS: Alanine Aminotransferase 16 U/L (0-40); Albumin Level 4.1 g/dL (3.5-5.0); Alkaline Phosphatase 86 U/L (39-117); Aspartate Amino Transferase 15 U/L (5-37); Bilirubin Direct 0.3 mg/dL (0.0-0.5); Bilirubin Total 0.8 mg/dL (0.0-1.0); Cholesterol 144 mg/dL; Glucose Fasting 141 mg/dL (60-99); HDL Cholesterol 54 mg/dL; LDL Cholesterol Calculated 78 mg/dl; Total Protein 6.7 g/dL (6.5-8.0); Triglycerides 61 mg/dL
[2021-09-13 11:26] LABS: Reflex LDLD? No
== END 2021-09-13 10:51 | disposition home or self-care (01) ==
LOC: HO.LNP 10:50
PROVIDERS: Visit Provider Internal Medicine
DX: E11.9 Type 2 diabetes mellitus without complications (principal); E78.00 Pure hypercholesterolemia, unspecified
CPT/HCPCS: 80061; 80076; 82947; 83036

== ENCOUNTER 2021-10-29 13:18 | Outpatient (REF) | payer MEDICARE, SELFPAY ==
--- NOTE | ~2021-10-29 | CT_ITS ---
EXAMINATION: CT CHEST WITHOUT CONTRAST CLINICAL INFORMATION: Lung nodule COMPARISON: 11/05/2020 TECHNIQUE: Multidetector volumetric CT imaging of the chest was done. Axial MIP volume rendering provided. Sagittal and coronal reformatted images were obtained. This CT examination was performed using dose optimization techniques as appropriate, variously including the following: *Automated exposure control *Adjustment of mA and/or kV according to patient size (this includes techniques or standardized protocols for targeted exams where dose is matched to indication/reason for exam; i.e. extremities or head) *Use of iterative reconstruction technique DLP: 168 mGy-cm FINDINGS: HOME SUPPORT WORKER: Unremarkable. LUNGS: The central airways are patent. Mild paraseptal and centrilobular emphysema. No consolidation. Minimal bibasilar atelectasis. There are a few calcified granulomata present. Additional nodules measuring up to 0.2 cm are again seen and unchanged. For instance 0.2 cm posterior right upper lobe nodule on series 5 image 152. No new pulmonary nodules are seen. MEDIASTINUM: Normal heart size. No pericardial effusion. Coronary artery calcifications present. No mediastinal lymphadenopathy. PLEURA: There is no pleural effusion. No pleural mass or thickening. No pneumothorax. AXILLA: No lymphadenopathy. UPPER ABDOMEN: Unremarkable. OSSEOUS STRUCTURES: Partially visualized cervical fusion hardware. Degenerative changes throughout the spine. CT/CT chest wo con IMPRESSION: Mild emphysema. Unchanged tiny pulmonary nodules measuring up to 0.2 cm. Given the stability, this suggests benign etiology. No specific follow-up recommended for these nodules. Fleischner guidelines were followed.
== END 2021-10-29 13:19 | disposition home or self-care (01) ==
LOC: HO.CT 13:18
PROVIDERS: Visit Provider Internal Medicine
DX: R91.1 Solitary pulmonary nodule (principal)
CPT/HCPCS: 71250

== ENCOUNTER 2022-03-11 11:17 | Outpatient (REF) | payer MEDICARE, SELFPAY ==
[2022-03-11 11:22] LABS: MANUAL DIFF FLAG NO
[2022-03-11 11:58] LABS: Appearance Urine Clear; Color Urine Yellow; Glucose Urine UA Negative (Negative); Leukocyte Esterase Urine Negative (Negative); Nitrite Urine Negative (Negative); UMIC TRIGGER UA YES; Urine Blood Negative (Negative); Urine Ketones Trace mg/dL (Negative); Urine Protein 30 (1+) mg/dL (Neg-Trace)
[2022-03-11 12:01] LABS: Bacteria Urine None Seen (None Seen); Basophils Absolute Auto 0.1 X10*3/uL (0.0-0.2); Basophils Percent Auto 0.6 % (0-2); Eosinophils Absolute Auto 0.2 X10*3/uL (0.0-0.4); Eosinophils Percent Auto 2.1 % (0-4); Hematocrit 47.1 % (42.0-52.0); Hemoglobin 15.8 g/dl (14.0-18.0); Hyaline Casts Urine 0-2 /LPF (0-2); Imm Gran Abs Auto 0.02 X10*3/uL (0.00-0.03); Imm Gran Pct Auto 0.2 % (0.0-0.4); Lymphocytes Absolute Auto 1.6 X10*3/uL (1.2-4.9); Lymphocytes Percent Auto 19.3 % (20-40); Mean Corpuscular HGB Conc 33.5 g/dl (31.0-36.0); Mean Corpuscular Hemoglobin 31.5 pg (27.0-33.0); Mean Platelet Volume 10.5 fL (9.4-12.4); Monocytes Absolute Auto 1.1 X10*3/uL (0.1-1.2); Monocytes Percent Auto 13.5 % (2-11); Neutrophils Absolute Auto 5.4 x10*3/uL (2.0-8.3); Neutrophils Percent Auto 64.3 % (45-73); Platelet Count 261 X10*3/uL (160-400); RBC Urine 0-2 /HPF (0-2); Red Blood Count 5.01 X10*6/uL (4.60-5.80); Red Cell Distribution Width 13.7 % (11.0-16.0); Squamous Epithelial Cell Urine 0-2 /HPF (0-2); WBC Urine 0-5 /HPF (0-5); White Blood Count 8.4 X10*3/uL (4.8-10.8)
[2022-03-11 12:17] LABS: Estimated Average Glucose 157 mg/dL; Hemoglobin A1c % 7.1 %
[2022-03-11 12:39] LABS: Creatinine Urine 102.73 mg/dL; Microalbum/Creatinine Ratio Ur 200.5 ug/mg cr
[2022-03-11 14:03] LABS: Alanine Aminotransferase 25 U/L (0-40); Albumin Level 4.1 g/dL (3.5-5.0); Alkaline Phosphatase 88 U/L (39-117); Anion Gap 12 (12-20); Aspartate Amino Transferase 20 U/L (5-37); Bilirubin Total 0.5 mg/dL (0.0-1.0); Blood Urea Nitrogen 16 mg/dL (9-16); Calcium 9.2 mg/dL (8.4-10.2); Carbon Dioxide 26 mmol/L (22-29); Chloride 106 mmol/L (96-108); Cholesterol 148 mg/dL; Estimated Glomerular Filt Rate > 60; Glucose Fasting 148 mg/dL (60-99); HDL Cholesterol 64 mg/dL; LDL Cholesterol Calculated 75 mg/dl; PSA,Total (Free>4and<10) 1.31 ng/mL (0.00-4.00); Potassium 4.3 mmol/L (3.3-5.1); Sodium 140 mmol/L (135-145); Total Protein 6.6 g/dL (6.5-8.0); Triglycerides 45 mg/dL
== END 2022-03-11 11:18 | disposition home or self-care (01) ==
LOC: HO.LNP 11:17
PROVIDERS: Visit Provider Internal Medicine
DX: Z12.5 Encounter for screening for malignant neoplasm of prostate (principal); I10 Essential (primary) hypertension; E11.9 Type 2 diabetes mellitus without complications; E78.00 Pure hypercholesterolemia, unspecified; N40.0 Benign prostatic hyperplasia without lower urinary tract symptoms
CPT/HCPCS: 80053; 80061; 81001; 82043; 83036; 84153; 85025

== ENCOUNTER 2022-04-01 07:56 | Outpatient (REF) | payer MEDICARE, SELFPAY ==
--- NOTE | ~2022-04-01 | CT_ITS ---
EXAMINATION: CT CHEST WITHOUT CONTRAST CLINICAL INFORMATION: Pulmonary nodule COMPARISON: Previous chest CT most recent October 2021 TECHNIQUE: Multidetector volumetric CT imaging of the chest was done. Axial MIP volume rendering provided. Sagittal and coronal reformatted images were obtained. This CT examination was performed using dose optimization techniques as appropriate, variously including the following: *Automated exposure control *Adjustment of mA and/or kV according to patient size (this includes techniques or standardized protocols for targeted exams where dose is matched to indication/reason for exam; i.e. extremities or head) *Use of iterative reconstruction technique DLP: 150 mGy-cm FINDINGS: HYDRAULIC MINER: LUNGS: Mild emphysema. Stable pulmonary nodules. 2 mm right upper lobe nodule axial image 120 series 5. 2 mm right lower lobe nodule axial image 303 series 5. 4 mm calcified right upper lobe nodule axial image 196 series 5. Abnormal parenchymal density in the posterior basal segment of the right lower lobe. This appears linear on sagittal and coronal reconstructed images and probably represents area of subsegmental atelectasis or small infiltrate. This is new from October 2021 exam. No endobronchial or endotracheal lesion. MEDIASTINUM: Coronary artery and aortic valve calcification. Tortuous thoracic aorta. CORONARY ARTERY CALCIFICATION: None visualized on this study. PLEURA: There is no pleural effusion. No pleural mass or thickening. AXILLA: No lymphadenopathy. UPPER ABDOMEN: Unremarkable. OSSEOUS STRUCTURES: Degenerative changes. Post surgical changes of cervical spine. CT/CT chest wo IV con IMPRESSION: Emphysema. Stable small calcified and noncalcified pulmonary nodules. New density in the posterior costophrenic sulcus of the right lower lobe probably representing subsegmental atelectasis or small infiltrate. Atherosclerotic disease. Fleischner guidelines were followed.
== END 2022-04-01 07:57 | disposition home or self-care (01) ==
LOC: HO.CT 07:56
PROVIDERS: PCP Internal Medicine; Visit Provider Internal Medicine
DX: R91.1 Solitary pulmonary nodule (principal)
CPT/HCPCS: 71250

== ENCOUNTER 2022-04-30 08:01 | Outpatient (REF) | payer MEDICARE, SELFPAY ==
--- NOTE | ~2022-04-30 | US_ITS ---
EXAMINATION: US RETROPERITONEAL LIMITED (AORTA) CLINICAL INFORMATION: Aortic aneurysm without rupture. COMPARISON: US retroperitoneal limited (aorta) 04/18/2021 and 10/11/2018. TECHNIQUE: Lujan-scale, color Doppler and spectral Doppler evaluation of the abdominal aorta. FINDINGS: Significant calcified plaque identified in the iliac vessels, with some calcification along the aorta as well. The measurements of the aorta in maximum AP and transverse dimensions respectively are as follows: Proximal: 2.9 x 2.6 cm. Mid: 2.4 x 2.1 cm. Distal: 2.3 x 2.4 cm. PSV: 108 cm/s. The measurements of the common iliac arteries in maximum AP and TRV dimensions are as follows: Right Common Iliac Artery: 1.4 x 1.2 cm. Left Common Iliac Artery: 1.4 x 1.2 cm. US/US abdominal aortic aneurysm IMPRESSION: No abdominal aortic or iliac artery aneurysm. Measurements are similar to decreased when compared to prior.
== END 2022-04-30 08:02 | disposition home or self-care (01) ==
LOC: HO.US 08:01
PROVIDERS: PCP Internal Medicine; Visit Provider Internal Medicine
DX: I71.9 Aortic aneurysm of unspecified site, without rupture (principal); A09 Infectious gastroenteritis and colitis, unspecified
CPT/HCPCS: 76706

== ENCOUNTER 2022-06-30 08:51 | Outpatient (REF) | payer MEDICARE, SELFPAY ==
[2022-07-01 10:05] LABS: Leukocytes Stool Qualitative MANY: >10/OIF (NEGATIVE)
[2022-07-01 10:11] LABS: CDiff Gene PCR NEGATIVE (Negative)
[2022-07-01 12:42] LABS: Campylobacter Not Detected (Not Detect.); Cryptosporidium Not Detected (Not Detect.); Cyclospora cayetanensis Not Detected (Not Detect.); E. coli EAEC Not Detected (Not Detect.); E. coli EPEC Not Detected (Not Detect.); E. coli ETEC Not Detected (Not Detect.); E. coli STEC Not Detected (Not Detect.); Plesiomonas shigelloides Not Detected (Not Detect.); Salmonella Not Detected (Not Detect.); Shigella sp./EIEC Not Detected (Not Detect.); Vibrio Not Detected (Not Detect.); Vibrio Cholerae Not Detected (Not Detect.); Yersinia enterocolitica Not Detected (Not Detect.)
[2022-07-01 12:43] LABS: Adenovirus F 40/41 Not Detected (Not Detect.); Astrovirus Not Detected (Not Detect.); Entamoeba histolytica Not Detected (Not Detect.); Giardia lamblia Not Detected (Not Detect.); Norovirus GI/GII Not Detected (Not Detect.); Rotavirus A Not Detected (Not Detect.); Sapovirus Not Detected (Not Detect.)
== END 2022-06-30 08:52 | disposition home or self-care (01) ==
LOC: HO.LNP 08:51
PROVIDERS: Visit Provider Internal Medicine
DX: R19.7 Diarrhea, unspecified (principal)
CPT/HCPCS: 87493; 87507; 89055

== ENCOUNTER 2022-07-02 15:30 | Outpatient (REF) | payer MEDICARE, SELFPAY ==
[2022-07-02 15:48] LABS: MANUAL DIFF FLAG NO
[2022-07-02 15:54] LABS: Basophils Percent Auto 0.3 % (0-2); Eosinophils Absolute Auto 0.1 X10*3/uL (0.0-0.4); Eosinophils Percent Auto 1.2 % (0-4); Hematocrit 44.3 % (42.0-52.0); Imm Gran Abs Auto 0.03 X10*3/uL (0.00-0.03); Imm Gran Pct Auto 0.3 % (0.0-0.4); Lymphocytes Absolute Auto 2.6 X10*3/uL (1.2-4.9); Lymphocytes Percent Auto 28.8 % (20-40); Mean Corpuscular HGB Conc 33.9 g/dl (31.0-36.0); Mean Corpuscular Hemoglobin 31.8 pg (27.0-33.0); Mean Corpuscular Volume 93.9 fL (80.0-98.0); Mean Platelet Volume 9.6 fL (9.4-12.4); Monocytes Absolute Auto 1.5 X10*3/uL (0.1-1.2); Monocytes Percent Auto 16.1 % (2-11); Neutrophils Absolute Auto 4.8 x10*3/uL (2.0-8.3); Neutrophils Percent Auto 53.3 % (45-73); Platelet Count 227 X10*3/uL (160-400); Red Blood Count 4.72 X10*6/uL (4.60-5.80); Red Cell Distribution Width 13.3 % (11.0-16.0); White Blood Count 9.1 X10*3/uL (4.8-10.8)
[2022-07-02 16:27] LABS: Alanine Aminotransferase 26 U/L (0-40); Albumin Level 4.1 g/dL (3.5-5.0); Alkaline Phosphatase 75 U/L (39-117); Anion Gap 14 (12-20); Aspartate Amino Transferase 21 U/L (5-37); Bilirubin Direct 0.2 mg/dL (0.0-0.5); Bilirubin Total 0.6 mg/dL (0.0-1.0); Blood Urea Nitrogen 22 mg/dL (9-16); C Reactive Protein 0.59 mg/dL (< or = 0.50); Calcium 9.5 mg/dL (8.4-10.2); Carbon Dioxide 23 mmol/L (22-29); Chloride 109 mmol/L (96-108); Estimated Glomerular Filt Rate > 60; Glucose Random 137 mg/dL (60-115); Potassium 4.6 mmol/L (3.3-5.1); Sodium 141 mmol/L (135-145); Total Protein 6.5 g/dL (6.5-8.0)
[2022-07-02 16:44] LABS: Erythrocyte Sedimentation Rate 4 MM/HR (0-15); T4 Thyroxine 6.5 ug/dL (4.5-12.0); Thyroid Stimulating Hormone 1.35 uIU/mL (0.32-4.0)
[2022-07-07 17:44] LABS: Immunoglobulin A 134 mg/dL (70-320)
[2022-07-08 17:33] LABS: Endomysial IgA Antibody Negative (Negative)
[2022-07-09 09:48] LABS: Transglutaminase Ab IgG <1.0 U/mL; Transglutaminase IgA <1.0 U/mL
[2022-07-09 10:18] LABS: Gliadin Deamidated IgA Ab <1.0 U/mL; Gliadin Deamidated IgG Ab <1.0 U/mL
== END 2022-07-02 15:31 | disposition home or self-care (01) ==
LOC: HO.LAB 15:30
PROVIDERS: PCP Internal Medicine; Visit Provider Internal Medicine
DX: R19.7 Diarrhea, unspecified (principal); R63.4 Abnormal weight loss
CPT/HCPCS: 36415; 80048; 80076; 82784; 84436; 84443; 85025; 85652; 86140; 86231; 86258; 86364

== ENCOUNTER 2022-07-07 12:24 | Day surgery (SDC) | payer MEDICARE, SELFPAY ==
--- NOTE | 2022-07-04 13:32 | HO.ANESPROP2 ---
HPI - Anesthesia Eval Consult details Narrative: 72yo M for Colonoscopy PMFSH Active Problems Active Problems: All Active Problems (Updated 11/13/20 @ 00:01 by Mayra Norton) Sciatica (Acute) Kidney stone (Acute) Hypertension (Acute) Diabetes (Acute) Past Medical History Medical History Diabetes Hypertension Kidney stone Sciatica Surgical History Surgical History History of hernia surgery History of laminectomy Previous back surgery Social History Social History Alcohol intake: never Meds Allergies Allergy/AdvReac Type Severity Reaction Status Date / Time No Known Allergies Allergy Unverified 12/22/19 15:35 Exam Exam Date and Time: July 04, 2022 1332 Pertinent Lab Results Pertinent Lab Results: Laboratory Tests 07/02/22 07/02/22 15:46 15:46 WBC 9.1 Hgb 15.0 Hct 44.3 Plt Count 227 Sodium 141 Potassium 4.6 Chloride 109 H Carbon Dioxide 23 BUN 22 H Creatinine 0.88 Assessment and Plan Assessment Anesthesia Assessment: Chart Reviewed
[2022-07-07 13:03] VITALS: BMI 22.7
--- NOTE | 2022-07-07 13:09 | HO.ANESPROP2 ---
[facility] Active Problems Active Problems: All Active Problems (Updated 07/07/22 @ 13:02 by Christie Zaldivar RN) Sciatica (Acute) Kidney stone (Acute) Hypertension (Acute) Diabetes (Acute) Past Medical History Medical History COPD (chronic obstructive pulmonary disease) Diabetes Hypertension Kidney stone Sciatica Functional capacity: bed bound Surgical History Surgical History History of hernia surgery History of laminectomy Previous back surgery History of Problems with Anesthesia: No Social History Social History Alcohol intake: never Patient Tobacco Use Status: Current everyday Tobacco user Tobacco use type: Cigarette Cigarette Packs Per Day: 1 Cigarettes Per Day: 20.0 Use of substances other than those prescribed or required for medical reasons: No Are you DNR?: No Advance Directives: No Advance Directives Information Provided: Yes How much weight loss: 14-23 pounds Nutrition Risks: No Nutritional Risk Meds Allergies Allergy/AdvReac Type Severity Reaction Status Date / Time No Known Allergies Allergy Unverified 12/22/19 15:35 Active Medications: Current Medications Lactated Ringer's (Lr) 1,000 mls @ 100 mls/hr IVCONT .Q10H DINORA Sodium Biphosphate/Sodium Phosphate (Sodium Phosphate,[place]-Dibasic 133 Ml Enema) 133 ml OR ONCE PRN PRN Reason: Poor Colonoscopy Prep Results Exam Exam Date and Time: July 07, 2022 1309 Height,Weight and Vital Signs: Height 5 ft 9 in Weight 69.853 kg Airway Mallampati Class: III TM Dist: >3cm Neck ROM: Full Loose/Missing/Broken Teeth: No Heart: RRR Lungs: CTA Assessment and Plan Assessment Anesthesia Assessment: Anesthesia Plan Discussed and Chart Reviewed Final Anesthetic Review History of Problems with Anesthesia: No NPO: Yes ASA Class: II Final Preanesthetic Review: Meds/Allgs Chart Reviewed, Consent Obtained/Reviewed and Anes Risks/Benef Reviewed Patient Risk: Low Procedure Risk: Low Anesthetic Plan Anesthetic Plan: MAC: Disposition: Standard PACU
[2022-07-07 13:11] VITALS: BP 132/86; PULSE 65; RESP 16; TEMP 36.9; O2SAT 94
[2022-07-07 13:21] LABS: Glucose, Whole Blood 103 mg/dL (60-115)
[2022-07-07] MEDS: Lactated Ringers 1,000 ML 100 ML IVCONT (13:24)
[2022-07-07 15:25] VITALS: BP 152/85; PULSE 61; RESP 18; TEMP 36.2; O2SAT 98
--- NOTE | 2022-07-07 15:33 | PM.OP ---
Brief Operative Note Date of Service: 07/07/22 Pre-op diagnosis: Diaarhea, weight loss Post-op diagnosis: other (R/O microscopic colitis, Colon polyp) Procedure: Colonoscopy to the cecum and very distal ileum with biopsies, and hot snare polypectomy with placement of 2 Resolution clips Surgeon: Esa Ramirez Anesthesia: MAC Was an Quality Assurance Assistant used for this Procedure?: No Estimated blood loss (mL): 2.0 Pathology: other (A. Ascending colon B. Terminal ileum C. Polyp at 50cm D. Descending colon) Condition: stable Disposition: PACU
[2022-07-07 15:39] VITALS: BP 154/86; PULSE 60; RESP 16; O2SAT 98
[2022-07-07 15:55] VITALS: BP 148/82; PULSE 61; RESP 16; TEMP 36.2; O2SAT 98
--- NOTE | 2022-07-08 04:23 | OP_ITS ---
DATE OF SERVICE: 07/07/2022 SURGEON: Esa Ramirez MD INDICATIONS: The patient presents for evaluation of persistent diarrhea and weight loss. Full consent has been obtained from him for this, including risks of bleeding and perforation. PREOPERATIVE DIAGNOSIS: POSTOPERATIVE DIAGNOSIS: PROCEDURE PERFORMED: Colonoscopy to the cecum and terminal ileum with biopsies, and hot snare polypectomy with placement of two Resolution clips. ESTIMATED BLOOD LOSS: COMPLICATIONS: ANESTHESIA: Monitored anesthesia care. ASSISTANTS: SPECIMENS: PREOPERATIVE DIAGNOSES: Diarrhea and weight loss. POSTOPERATIVE DIAGNOSES: Diarrhea and weight loss, rule out microscopic colitis, colon polyp, diverticulosis, internal hemorrhoids. DESCRIPTION OF PROCEDURE: The patient was placed in the left lateral decubitus position. The digital rectal exam revealed no abnormalities. The Olympus video pediatric colonoscope was entered into the rectum and advanced to the cecum. Once in the cecum, I did identify a normal-appearing cecal pouch with appendiceal orifice and a normal-appearing ileocecal valve. There was transillumination of light deep in the right lower quadrant. I was able to visualize the ileocecal valve, which appeared normal without any sign of ulceration or mass. However, after a lengthy attempt at gaining entry into the terminal ileum I was not successful; although I was able to visualize the very distal ileal mucosa as it prolapsed into the colon and biopsies were obtained. There was no sign of any Crohn's disease on this very limited view of the ileum. The scope was then slowly withdrawn assessing all mucosal surfaces carefully. Perforation was excellent. I did not visualize any sign of colitis nor angiodysplasia. I did obtain random biopsies in the ascending and descending colon. At 50 cm there was an approximately 10-12 mm polyp which was removed by hot snare polypectomy and recovered by suction. I did place two Resolution clips on to the polypectomy site with good deployment and good hemostasis. No other polyps were visualized. There was mild amount of sigmoid diverticulosis. In the rectum, the scope was retroflexed visualizing some internal hemorrhoids, but no other pathology. The rectal mucosa appeared normal. The scope was straightened and withdrawn from the patient. He tolerated the procedure well and was returned to the recovery area in stable condition. IMPRESSION: 1. Colon polyp. 2. Rule out microscopic colitis. 3. Diverticulosis. 4. Internal hemorrhoids. PLAN: Results of the biopsies will be checked. If the biopsies are non-revealing in regard to a cause of his diarrhea he may need further evaluation with a CT scan of the abdomen and pancreas. He does have laboratories pending for celiac disease and depending upon those results, he may need an upper endoscopy with duodenal biopsies. He has not responded to Imodium and clearly his significant weight loss indicates some ongoing significant issue. I shall give him a prescription to try Lomotil. He is on metformin, but has been on that for many, many years without any problems and therefore I doubt that is the cause of his diarrhea. This has all been discussed with the patient and his today. He was advised not to use any aspirin, NSAIDs for one week. MD BO Gilliam/LATRICE / [id number] LESLY
== END 2022-07-07 16:00 | disposition home or self-care (01) ==
PROVIDERS: PCP Internal Medicine; Visit Provider Internal Medicine
PROC: 0DJD8ZZ Inspection of Lower Intestinal Tract, Via Natural or Artificial Opening Endoscopic (ICD-10-PCS; CPT 45378; principal; 2022-07-07 14:30)
DX: R19.7 Diarrhea, unspecified (principal); K52.832 Lymphocytic colitis; K63.5 Polyp of colon; K57.30 Diverticulosis of large intestine without perforation or abscess without bleeding; K64.8 Other hemorrhoids; R63.4 Abnormal weight loss; Z68.22 Body mass index [BMI] 22.0-22.9, adult; J44.9 Chronic obstructive pulmonary disease, unspecified; N40.0 Benign prostatic hyperplasia without lower urinary tract symptoms; I71.40 Abdominal aortic aneurysm, without rupture, unspecified; I10 Essential (primary) hypertension; N20.0 Calculus of kidney; E78.5 Hyperlipidemia, unspecified; E11.9 Type 2 diabetes mellitus without complications; Z79.899 Other long term (current) drug therapy; Z79.84 Long term (current) use of oral hypoglycemic drugs; F17.210 Nicotine dependence, cigarettes, uncomplicated
CPT/HCPCS: 45385; 45380; 82947; 88305

== ENCOUNTER 2022-09-09 11:05 | Outpatient (REF) | payer MEDICARE, SELFPAY ==
[2022-09-09 11:36] LABS: Estimated Average Glucose 174 mg/dL; Hemoglobin A1c % 7.7 %
[2022-09-09 11:42] LABS: Alanine Aminotransferase 24 U/L (0-40); Albumin Level 4.1 g/dL (3.5-5.0); Alkaline Phosphatase 81 U/L (39-117); Aspartate Amino Transferase 18 U/L (5-37); Bilirubin Direct 0.2 mg/dL (0.0-0.5); Bilirubin Total 0.8 mg/dL (0.0-1.0); Cholesterol 158 mg/dL; Glucose Fasting 162 mg/dL (60-99); HDL Cholesterol 72 mg/dL; LDL Cholesterol Calculated 75 mg/dl; Total Protein 6.7 g/dL (6.5-8.0); Triglycerides 55 mg/dL
[2022-09-09 13:26] LABS: Reflex LDLD? No
== END 2022-09-09 11:06 | disposition home or self-care (01) ==
LOC: HO.LNP 11:05
PROVIDERS: Visit Provider Internal Medicine
DX: E11.9 Type 2 diabetes mellitus without complications (principal); E78.00 Pure hypercholesterolemia, unspecified
CPT/HCPCS: 80061; 80076; 82947; 83036

== ENCOUNTER 2022-10-15 14:46 | Outpatient (REF) | payer MEDICARE, SELFPAY | END 2022-10-15 14:47 | disposition home or self-care (01) | LOC: HO.CT 14:46 | PROVIDERS: PCP Internal Medicine; Visit Provider Internal Medicine | DX: Z13.89 Encounter for screening for other disorder (principal) ==

== ENCOUNTER 2022-12-11 07:54 | Outpatient (REF) | payer MEDICARE, SELFPAY ==
--- NOTE | ~2022-12-11 | CT_ITS ---
EXAMINATION: CT CHEST WITHOUT CONTRAST CLINICAL INFORMATION: Follow-up pulmonary nodules. COMPARISON: Prior CT examinations, most recently 04/08/2022. TECHNIQUE: Multidetector volumetric CT imaging of the chest was done. Axial MIP volume rendering provided. Sagittal and coronal reformatted images were obtained. This CT examination was performed using dose optimization techniques as appropriate, variously including the following: *Automated exposure control *Adjustment of mA and/or kV according to patient size (this includes techniques or standardized protocols for targeted exams where dose is matched to indication/reason for exam; i.e. extremities or head) *Use of iterative reconstruction technique DLP: 1 a mGy-cm FINDINGS: SPACE AND MISSILE DEFENSE OPERATIONS: The lungs are symmetrically well-expanded and grossly clear. LUNGS: At the posterior right apex (5:134), a stable 3 mm noncalcified nodule is seen. Within the right upper lobe laterally (5:230), a coarse benign, calcified granuloma is seen. At the lateral right base (5:357), a stable 4 mm noncalcified subpleural nodule is seen. There are a few further tiny benign, calcified right base granulomas. All are unchanged from prior examinations including 10/11/2018, and they are considered benign. There is no new nodule. No mass, infiltrate or groundglass opacity is seen. There is mild paraseptal and centrilobular emphysematous change. There is slight dependent hypoaeration. No generalized small airway thickening is seen. The central airways appear patent. MEDIASTINUM: The thyroid is unremarkable. There is no thoracic aortic aneurysm. There are moderate atherosclerotic calcifications of the great vessel origins and thoracic aorta. No mediastinal or hilar lymphadenopathy is seen. CORONARY ARTERY CALCIFICATION: Marked. PLEURA: There is no pleural effusion. No pleural mass or thickening. AXILLA: No lymphadenopathy. UPPER ABDOMEN: Unremarkable. OSSEOUS STRUCTURES: There is multi-level thoracolumbar degenerative disc disease, spondylosis and Schmorl's node formation. Lower cervical orthopedic hardware is partially included in the [id number]. There is no acute or aggressive osseous finding. CT/CT chest wo IV con IMPRESSION: There are benign, stable small right lung calcified and noncalcified nodules. Previously noted posterior right base atelectasis is resolved in the interim. No new nodule, mass, infiltrate or groundglass opacity is seen. There is no thoracic lymphadenopathy or pleural effusion. No aggressive osseous lesion is seen. Fleischner guidelines were followed.
== END 2022-12-11 07:55 | disposition home or self-care (01) ==
LOC: HO.CT 07:54
PROVIDERS: PCP Internal Medicine; Visit Provider Internal Medicine
DX: R91.1 Solitary pulmonary nodule (principal)
CPT/HCPCS: 71250

== ENCOUNTER 2023-03-16 11:27 | Outpatient (REF) | payer MEDICARE, SELFPAY ==
[2023-03-16 11:31] LABS: MANUAL DIFF FLAG NO
[2023-03-16 11:48] LABS: Basophils Percent Auto 0.2 % (0-2); Eosinophils Absolute Auto 0.1 X10*3/uL (0.0-0.4); Eosinophils Percent Auto 0.9 % (0-4); Hematocrit 47.2 % (42.0-52.0); Imm Gran Abs Auto 0.04 X10*3/uL (0.00-0.03); Imm Gran Pct Auto 0.4 % (0.0-0.4); Lymphocytes Absolute Auto 2.9 X10*3/uL (1.2-4.9); Lymphocytes Percent Auto 25.9 % (20-40); Mean Corpuscular HGB Conc 33.9 g/dl (31.0-36.0); Mean Corpuscular Hemoglobin 32.2 pg (27.0-33.0); Mean Platelet Volume 10.7 fL (9.4-12.4); Monocytes Percent Auto 8.8 % (2-11); Neutrophils Percent Auto 63.8 % (45-73); Platelet Count 225 X10*3/uL (160-400); Red Blood Count 4.97 X10*6/uL (4.60-5.80)
[2023-03-16 11:51] LABS: Appearance Urine Clear; Color Urine Yellow; Glucose Urine UA Negative (Negative); Leukocyte Esterase Urine Negative (Negative); Nitrite Urine Negative (Negative); UMIC TRIGGER UACC YES; Urine Blood Negative (Negative); Urine Ketones Negative (Negative); Urine Protein 30 (1+) mg/dL (Neg-Trace)
[2023-03-16 11:55] LABS: Bacteria Urine None Seen (None Seen); Hyaline Casts Urine 0-2 /LPF (0-2); RBC Urine 0-2 /HPF (0-2); Squamous Epithelial Cell Urine 0-2 /HPF (0-2); WBC Urine 0-5 /HPF (0-5)
[2023-03-16 11:59] LABS: Estimated Average Glucose 183 mg/dL
[2023-03-16 12:19] LABS: Alanine Aminotransferase 22 U/L (0-40); Alkaline Phosphatase 66 U/L (39-117); Anion Gap 14 (12-20); Aspartate Amino Transferase 18 U/L (5-37); Bilirubin Total 0.7 mg/dL (0.0-1.0); Blood Urea Nitrogen 17 mg/dL (9-16); Calcium 9.3 mg/dL (8.4-10.2); Carbon Dioxide 25 mmol/L (22-29); Chloride 105 mmol/L (96-108); Cholesterol 148 mg/dL (<200); Estimated Glomerular Filt Rate > 60; Glucose Fasting 143 mg/dL (60-99); HDL Cholesterol 50 mg/dL (>40); LDL Cholesterol Calculated 84 mg/dL (<100); Potassium 3.6 mmol/L (3.3-5.1); Sodium 140 mmol/L (135-145); Total Protein 6.8 g/dL (6.5-8.0); Triglycerides 71 mg/dL (<150)
[2023-03-16 12:25] LABS: PSA,Total (Free>4and<10) 0.98 ng/mL (0.00-4.00)
[2023-03-16 12:44] LABS: Creatinine Urine 106.77 mg/dL
== END 2023-03-16 11:28 | disposition home or self-care (01) ==
LOC: HO.LNP 11:27
PROVIDERS: Visit Provider Internal Medicine
DX: Z12.5 Encounter for screening for malignant neoplasm of prostate (principal); I10 Essential (primary) hypertension; N40.0 Benign prostatic hyperplasia without lower urinary tract symptoms; E78.00 Pure hypercholesterolemia, unspecified; E11.9 Type 2 diabetes mellitus without complications
CPT/HCPCS: 80053; 80061; 81001; 82043; 82570; 83036; 84153; 85025

== ENCOUNTER 2023-09-22 11:16 | Outpatient (REF) | payer MEDICARE, SELFPAY ==
[2023-09-22 11:53] LABS: Alanine Aminotransferase 18 U/L (0-40); Alkaline Phosphatase 73 U/L (39-117); Aspartate Amino Transferase 17 U/L (5-37); Bilirubin Direct 0.2 mg/dL (0.0-0.5); Bilirubin Total 0.5 mg/dL (0.0-1.0); Cholesterol 151 mg/dL (<200); Glucose Fasting 158 mg/dL (60-99); HDL Cholesterol 58 mg/dL (>40); LDL Cholesterol Calculated 80 mg/dL (<100); Total Protein 6.8 g/dL (6.5-8.0); Triglycerides 68 mg/dL (<150)
[2023-09-22 11:54] LABS: Estimated Average Glucose 177 mg/dL; Hemoglobin A1c % 7.8 % (<6.0)
[2023-09-22 13:44] LABS: Reflex LDLD? No
== END 2023-09-22 11:17 | disposition home or self-care (01) ==
LOC: HO.LNP 11:16
PROVIDERS: Visit Provider Internal Medicine
DX: E11.9 Type 2 diabetes mellitus without complications (principal); E78.00 Pure hypercholesterolemia, unspecified
CPT/HCPCS: 80061; 80076; 82947; 83036

== ENCOUNTER 2024-01-01 13:49 | Outpatient (REF) | payer MEDICARE, SELFPAY ==
--- NOTE | ~2024-01-01 | CT_ITS ---
EXAMINATION: CT CHEST WITHOUT CONTRAST CLINICAL INFORMATION: Lung nodule. COMPARISON: CT chest dated December 11, 2022 TECHNIQUE: Multidetector volumetric CT imaging of the chest was done. Axial MIP volume rendering provided. Sagittal and coronal reformatted images were obtained. This CT examination was performed using dose optimization techniques as appropriate, variously including the following: *Automated exposure control *Adjustment of mA and/or kV according to patient size (this includes techniques or standardized protocols for targeted exams where dose is matched to indication/reason for exam; i.e. extremities or head) *Use of iterative reconstruction technique DLP: 152 mGy-cm FINDINGS: Submitted for interpretation on March 04, 2024. 1.5 mm calcified pulmonary nodule in the periphery of the right upper lobe. Subsegmental atelectasis versus scarring, right lung base. No consolidation, pleural effusion or pneumothorax. No bronchiectasis. No gross honeycombing. Subtle pulmonary apical lung scarring. Respiratory airways is grossly patent. No lymphadenopathy, mediastinum. Nonspecific mildly prominent axillary lymph nodes. There is no enlargement of the thyroid gland. Calcified plaques throughout the thoracic aorta and its main branches. Calcified plaques in the coronary arteries. Multilevel cervical thoracic spondylosis more conspicuous at T8-9 and to a lesser extent T9-10. No acute fracture or listhesis. No lytic or blastic lesions. Degenerative changes in the left glenohumeral joint. Status post anterior cervical fusion lower cervical spine metallic hardware no fully included. Soft tissue fullness both adrenal glands measuring -1.[address]/CT chest wo IV con IMPRESSION: 1.5 mm granuloma, right upper lobe. No acute airspace disease. Coronary artery disease and atherosclerosis disease. 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 Fleischner guidelines were followed. Electronically signed by: Maico Reid MD 03/04/2024 12:34 PM EST
== END 2024-01-01 13:50 | disposition home or self-care (01) ==
LOC: HO.CT 13:49
PROVIDERS: PCP Internal Medicine; Visit Provider Internal Medicine
DX: R91.1 Solitary pulmonary nodule (principal)
CPT/HCPCS: 71250

== ENCOUNTER → 2024-01-01 13:51 | Outpatient (BNV) | payer MEDICARE, SELFPAY | PROVIDERS: PCP Internal Medicine; Visit Provider Radiology Diagnostic Radiology | DX: R91.1 Solitary pulmonary nodule (principal) | CPT/HCPCS: 71250 ==

== ENCOUNTER 2024-03-25 12:21 | Outpatient (REF) | payer MEDICARE, SELFPAY ==
--- OUTSIDE RECORDS SUMMARY | 2024-03-25 12:24 | XMS_ITS | Patient Health Record ---
Author Organization Jensen Mark MD Address [address] [place], [place] [address] Care Team Providers Care Real Estate Paralegal Name Role Phone Jensen Mark Primary Care Provider ALLERGIES No Known Allergies RESULTS Component Value Reference Range Notes Jasper Mercedes Reviewed date:09/22/2023 12:32:41 PM Interpretation: Performing Lab:[facility], [address] [place] [phone] Notes/Report: Jasper Mercedes See Note Specimen held untested for 24 hours; Call to request Chemistry testing. Liver Panel Reviewed date:09/22/2023 04:29:50 PM Interpretation: Performing Lab:[facility], [address] [place] [phone] Notes/Report: Bilirubin Total 0.5 0.0-1.0 mg/dL Bilirubin Direct 0.2 0.0-0.5 mg/dL Aspartate Amino Transferase 17 5-37 U/L Alanine Aminotransferase 18 0-40 U/L Total Protein 6.8 6.5-8.0 g/dL Albumin Level 4.0 3.5-5.0 g/dL Alkaline Phosphatase 73 39-117 U/L Glucose Fasting Reviewed date:09/22/2023 04:29:40 PM Interpretation: Performing Lab:[facility], [address] [place] [phone] Notes/Report: Glucose Fasting 158 60-99 mg/dL A fasting glucose of 126 mg/dl or greater on more than one occasion is considered diagnostic of diabetes. Lipid Panel with Reflex Reviewed date:09/22/2023 04:30:01 PM Interpretation: Performing Lab:[facility], [address] [place] [phone] Notes/Report: Triglycerides 68 <150 mg/dL Desirable Triglyceride: less than 150 mg/dL Borderline High Triglyceride 150-199 mg/dL High Triglyceride: 200-499 mg/dL Very High Triglyceride: greater than or equal to 5OO mg/dL Cholesterol 151 <200 mg/dL Desirable Cholesterol: less than 200 mg/dL Borderline High Cholesterol: 200-239 mg/dL High Cholesterol: greater than 239 mg/dL LDL Cholesterol Calculated 80 <100 mg/dL Desirable LDL: less than 100 mg/dL Near Optimal/Above Optimal LDL: 110-129 mg/dL Borderline High LDL: 130-159 mg/dL High LDL: 160-189 mg/dL Very High LDL: greater than or equal to 190 mg/dL HDL Cholesterol 58 >40 mg/dL Desirable HDL: greater than 40 mg/dL Note: This HDL assay may give artificially low results in patients with liver disease. Hemoglobin A1c Reviewed date:09/22/2023 12:35:56 PM Interpretation: Performing Lab:[facility], [address] [place] [phone] Notes/Report: Hemoglobin A1c % 7.8 <6.0 % Hemoglobin A1C Reference Range Adults: 4.8 - 6.0 % Non diabetic: < 6.0 % Goal: < 7.0 % Additional Action Suggested: > 8.0 % Note: Hemoglobin A1c results are invalid for patients with abnormal amounts of HbF. Blood transfusions may impact the HbA1c concentration in the patient sample. Estimated Average Glucose 177 eAG = Estimated average glucose which is %A1C expressed as average glucose, using the formula of the [id number]-Yexufgg Average Glucose study (ADAG), Diabetes Care, Vol.31,#8, Nov. 2007 CT chest wo con Reviewed date:03/06/2024 02:49:32 PM Interpretation: Performing Lab: Notes/Report: [address] [address] [address] Scan Report Signed Patient: Franky Wade MR#: [id number] : 1950 Acct:[id number] Age/Sex: 73 / M ADM Date: 01/01/24 Loc: HO.CT Attending Dr: Jensen Mark MD Ordering Physician: Jensen Mark MD Date of Service: 01/01/24 Procedure(s): CT chest wo IV con Accession Number(s): [id number] cc: Jensen Mark MD EXAMINATION: CT CHEST WITHOUT CONTRAST CLINICAL INFORMATION: Lung nodule. COMPARISON: CT chest dated December 11, 2022 TECHNIQUE: Multidetector volumetric CT imaging of the chest was done. Axial MIP volume rendering provided. Sagittal and coronal reformatted images were obtained. This CT examination was performed using dose optimization techniques as appropriate, variously including the following: *Automated exposure control *Adjustment of mA and/or kV according to patient size (this includes techniques or standardized protocols for targeted exams where dose is matched to indication/reason for exam; i.e. extremities or head) *Use of iterative reconstruction technique DLP: 152 mGy-cm FINDINGS: Submitted for interpretation on March 04, 2024. 1.5 mm calcified pulmonary nodule in the periphery of the right upper lobe. Subsegmental atelectasis versus scarring, right lung base. No consolidation, pleural effusion or pneumothorax. No bronchiectasis. No gross honeycombing. Subtle pulmonary apical lung scarring. Respiratory airways is grossly patent. No lymphadenopathy, mediastinum. Nonspecific mildly prominent axillary lymph nodes. There is no enlargement of the thyroid gland. Calcified plaques throughout the thoracic aorta and its main branches. Calcified plaques in the coronary arteries. Multilevel cervical thoracic spondylosis more conspicuous at T8-9 and to a lesser extent T9-10. No acute fracture or listhesis. No lytic or blastic lesions. Degenerative changes in the left glenohumeral joint. Status post anterior cervical fusion lower cervical spine metallic hardware no fully included. Soft tissue fullness both adrenal glands measuring -1.[address]/CT chest wo IV con IMPRESSION: 1.5 mm granuloma, right upper lobe. No acute airspace disease. Coronary artery disease and atherosclerosis disease. 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 Fleischner guidelines were followed. Electronically signed by: Maico Reid MD 03/04/2024 12:34 PM EST RP Dictated By: Maico Castle MD Signed By: <Electronically signed by Maico Hampton MD in OV> 03/04/24 1234 DD/ 1410 TD/TT: 01/01/24 1435 Ship Wirer: REASON FOR REFERRAL No Information MEDICATIONS Medication SIG (Take, Route, Frequency, Duration) Notes Start Date End Date Status Chantix Starting Month Maverick 0.5 MG X 11 & 1 MG X 42 as directed Orally one tab twice a day for 30 days 05/20/2019 Not-Taking Chantix Continuing Month Maverick 1 MG as directed Orally twice a day for 30 days 05/20/2019 Not-Taking Viagra 100 MG 1 tablet as needed Orally Once a day for 30 day(s) 11/13/2017 Not-Taking Irbesartan 150 MG TAKE 1 TABLET BY MOUTH EVERY DAY for 90 Active Atorvastatin Calcium 80 MG TAKE 1 TABLET BY MOUTH EVERY DAY for 90 Active Escitalopram Oxalate 20 MG TAKE 1 TABLET BY MOUTH EVERY DAY for 90 Active Flonase Allergy Relief 50 MCG/ACT 1 spray in each nostril Nasally Once a day for 30 day(s) 12/13/2018 Not-Taking Ibuprofen 800 MG 1 tablet Orally as needed for 30 Not-Taking Cyclobenzaprine HCl 5 MG 1 tablet as nee ded Orally Three times a day for 10 days 05/31/2019 Active Cyclobenzaprine HCl 5 MG 1 tablet Orally 2 times a day for 30 days Not-Taking Tamsulosin HCl 0.4 MG TAKE ONE CAPSULE B Y MOUTH TWICE A DAY ORALLY TWICE A DAY 90 DAYS for 90 Active metFORMIN HCl 1000 MG TAKE ONE TABLET BY MOUTH TWICE A DAY WITH MEALS ORALLY for 90 Active IMMUNIZATIONS Vaccine Route Administration Date Status Comme nts Flu Vaccine IM Intramuscular 04/20/2012 Administered Flu Vaccine IM Intramuscular 01/31/2013 Administered Flu Vaccine IM Intramuscular 03/13/2014 Administered PPSV23 (Pnemovax) IM Intramuscular 03/23/2014 Administered zFluzone Quadrivalent IM Intramuscular 2015 Administered Influenza High Dose IM Intramuscular 01/27/2019 Administered pt was given th e vaccine at [facility]. Prevnar 13 IM Intramuscular 01/27/2019 Administered pt was given the vaccine at [facility]. Influenza High Dose IM Intramuscular 12/01/2019 Administered Pt was given th e vaccine at [facility] on [address] Joc[address] Flores PPSV23 (Pnemovax) Unknown 02/21/2020 Administered Covid Vaccine Unknown 07/06/2020 Administered Pfizer Covid Vaccine Unknown 07/27/2020 Administered Pfizer Influenza High Dose Unknown 02/03/2021 Administered SARS-COV-2 Pfizer Unknown 01/25/2021 Administered Fluarix Quadrivalent IM Intramuscular 03/11/2022 Administered Prevnar 13 Unknown 09/11/2014 Refused Prevnar 13 Unknown 09/23/2016 Refused Shingrix Unknown 11/13/2017 Refused SOCIAL HISTORY Tobacco Use: Social History Observation Description Date Details (start date - stop date) Current Smoker NA - NA Sex Assigned At : Social History Observation Description Sex Assigned At Unknown Tobacco Use/Smoking Question Answer Notes Patient is a current smoker How often do you smoke cigarettes? every day How many cigarettes a day do you smoke? 11-20 How soon after you wake up d o you smoke your first cigarette? within 5 minutes Are you interested in quitting? Not ready to priscilla t Additional Findings: Tobacco User Curren t cigarette smoker, not currently using another form of tobacco Alcohol Screen Question Answer Notes Did you have a drink contain ing alcohol in the past year? Yes How often did you have a dri nk containing alcohol in the past year? 2 to 4 times a month (2 points) How many drinks did you have on a typical day when you were drinking in the past year? 1 or 2 drinks (0 point) How often did you have 6 or more drinks on one occasion in the past year? Never (0 point) Points 2 Interpretation Negative PROBLEMS Problem Type ICD Code Onset Dates Problem Status W/U Status Risk SNOMED Code Notes Problem Dysthymic disorder (F34.1) Active confirmed 11014817 Problem Prostatism (N40.0) Active confirmed 114 68584 Problem Lung nodule seen on imaging study (R91.1) Active confirmed 905577166 Problem Panlobular emphysema (J43.1) Active confirmed 2485880 Problem Lumbar disc disease (M51.9) Active confirmed 430085974 Problem Essential hypertension (I10) Active confirmed 37693347 Problem Type 2 diabetes mellitus without complication (E11.9) Active confirmed 23913565 Problem 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) Active confirmed Diabetic periph eral neuropathy associated with type 2 diabetes mellitus (2812336639720) Problem Lung nodule (R91.1) Active confirmed 30 1694418 Problem Type 2 diabetes, controlled, with neuropathy (E11.40) Active confirmed 82179122 Problem Current smoker (F17.200) Active confirmed 37982243 Problem 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) Active confirmed 190546575 Problem Vasculogenic erectil e dysfunction, unspecified vasculogenic erectile dysfunction type (N52.9) Active confirmed 668473465 Problem Abdominal aortic aneurysm (AAA) without rupture (I71.4) Active confirmed 64454959 Problem Lymphocytic colitis (K52.832) Active confirmed 1091962605 Problem Pure hypercholesterolemia (E78.00) Active confirmed 953038354 Problem Hypercholesterolemia (E78.00) Active confirmed Hypercholestero lemia (25674964) Problem Bilateral carpal tunnel syndrome (G56.03) Active confirmed 16680071 Problem Peyronie's disease (N48.6) Active confirmed 2210367 Problem Aortic aneurysm without rupture, unspecified portion of aorta (I71.9) Active confirmed 68777944 Problem Abnormal CT scan, chest (R93.89) Active confirmed 43974756715981567 Problem Lumbar disc herniation (M51.26) Active confirmed 827154005 Problem Pain, penile (N48.89) Active confirmed 338742053 Problem Microscopic colitis, unspecified microscopic colitis type (K52.839) Active confirmed 099055542 VITAL SIGNS Blood pressure diastolic 68 mm Hg 09/29/2023 Height 69 in 09/29/2023 Blood pressure systolic 104 mm Hg 09/29/2023 Weight 159 lbs 09/29/2023 BMI 23.48 kg/m2 09/29/2023 Encounters Encounter Location Date Provider Diagnosis Jensen Mark MD [address] [place] [phone] 09/22/2023 Jensen Mark Type 2 diabetes hi itus without complication E11.9 and Pure hypercholesterolemia E78.00 Jensen Mark MD [address] [place] [id number] 03/25/2024 Jensen Mark Essential hypertensi on I10 ; Type 2 diabetes mellitus without complication E11.9 ; Pure hypercholesterolemia E78.00 and Hypercholesterolemia E78.00 Jensen Mark MD [address] [place], [place] [phone] 09/29/2023 Jensen Mark Type 2 diabetes hi itus without complication E11.9 Jensen Mark MD [address] [place] [phone] 11/19/2023 Jensen Mark ASSESSMENTS Encounter Date Diagnosis Assessment Notes Treatment Notes Treatment Clinical Notes 09/22/2023 Type 2 diabetes hi itus without complication (ICD-10 - E11.9) 09/22/2023 Pure hypercholestero lemia (ICD-10 - E78.00) 03/25/2024 Essential hypertensi on (ICD-10 - I10) 09/29/2023 Type 2 diabetes hi itus without complication (ICD-10 - E11.9) doing a little better, will continue current regiment, had knee surgery last week 03/25/2024 Type 2 diabetes hi itus without complication (ICD-10 - E11.9) 03/25/2024 Pure hypercholestero lemia (ICD-10 - E78.00) 03/25/2024 Hypercholesterolemia (ICD-10 - E78.00) PLAN OF TREATMENT Pending Test Test Name Order Date Electrocardiogram (EKG) 09/02/2013 MRI LUMBAR SPINE NO CONTRAST 09/17/2015 US ABD AORTA 03/14/2021 Stress Test 11/16/2018 Complete Blood Count Auto Diff 4 Comprehensive [place]. Panel Fast 4 Lipid Panel 03/25/2024 PSA,Total (Free>4and<10) 03/25/2024 Microalbumin, Random 03/25/2024 CT chest wo con 11/01/2021 CT chest wo con 12/18/2022 CT chest wo con 03/18/2022 US abdominal aortic aneurysm 03/18/2022 US abdominal aortic aneurysm 04/18/2021 Hemoglobin A1c 03/25/2024 UA ClnCatch+Micro w/rflx Cult 03/25/2024 Future Test Test Name Order Date CT CHEST NO CONTRAST 11/09/2020 CT chest wo con 11/08/2021 CT chest wo con 03/18/2022 CT chest wo con 07/16/2022 Next Appt Details Provider Name:Jensen Summers ier, 04/01/2024 11:00:00 AM, [address], [address], [place], [place], [phone], Insurance Providers Payer Name Payer Address Payer Phone Subscriber Number Group Number Insured Name Patient Relationship to Insured Coverage Start Date Coverage End Date [employer] [address] [place] [address] [id number] Franky Wade Self - patient is the insured [employer] [place] [address] [place] [phone] [id number] Franky Wade Self - patient is the insured MEDICAL (GENERAL) HISTORY Medical History History ICD Code colonoscopy 09/2006 - repeat 10 years; colonoscopy booked w/Dr. Ramirez for 03/20/17( pt cx and has not rebooked); had negative cologuard on 05/29/19). Colonoscopy 07/07/22 pending path
--- OUTSIDE RECORDS SUMMARY | 2024-03-25 12:24 | XMS_ITS ---
Author Organization Jensen Mark MD Address [address] [place] [phone] Care Team Providers Care Audio Visual Equipment Rental Clerk Name Role Phone Jensen Mark Primary Care Provider [phone] REASON FOR VISIT FASTING LABS Encounters Encounter Location Date Provider Diagnosis Jensen Mark MD [address] [place] [phone] 03/25/2024 Jensen Mark Essential hypertensi on I10 ; Type 2 diabetes mellitus without complication E11.9 ; Pure hypercholesterolemia E78.00 and Hypercholesterolemia E78.00 ASSESSMENTS Encounter Date Diagnosis Assessment Notes Treatment Notes Treatment Clinical Notes 03/25/2024 Essential hypertensi on (ICD-10 - I10) 03/25/2024 Type 2 diabetes hi itus without complication (ICD-10 - E11.9) 03/25/2024 Pure hypercholestero lemia (ICD-10 - E78.00) 03/25/2024 Hypercholesterolemia (ICD-10 - E78.00) PLAN OF TREATMENT Pending Test Test Name Order Date Complete Blood Count Auto Diff Comprehensive [place]. Panel Fast 4 Lipid Panel 03/25/2024 PSA,Total (Free>4and<10) 03/25/2024 Microalbumin, Random 03/25/2024 Hemoglobin A1c 03/25/2024 UA ClnCatch+Micro w/rflx Cult 03/25/2024 Next Appt Details Provider Name:Jensen wade, 04/01/2024 11:00:00 AM, [address] [place] [address], [address], [place], [place], [phone],
--- OUTSIDE RECORDS SUMMARY | 2024-03-25 12:24 | XMS_ITS ---
Author Organization Jensen Mark MD Address [address] [place], [place] [id number] Care Team Providers Care Photo Optics Technician Name Role Phone Jensen Mark Primary Care Provider [phone] Chest due Encounters Encounter Location Date Provider Diagnosis Jensen Mark MD [address] [place], [place] [phone] 11/19/2023 Jensen Mark PLAN OF TREATMENT Next Appt Details Provider Name:Jensen Summers ier, 04/01/2024 11:00:00 AM, [address], [address], [place], [place], [phone],
--- OUTSIDE RECORDS SUMMARY | 2024-03-25 12:24 | XMS_ITS ---
Author Organization Jensen Mark MD Address [address] [place], [place] [id number] Care Team Providers Care Electron Tube Assembler Name Role Phone Jensen Mark Primary Care Provider ALLERGIES No Known Allergies REASON FOR VISIT 6 MO F/U MEDICATIONS Medication SIG (Take, Route, Frequency, Duration) Notes Start Date End Date Status Chantix Continuing Month Maverick 1 MG as directed Orally twice a day for 30 days 05/20/2019 Not-Taking Viagra 100 MG 1 tablet as needed Orally Once a day for 30 day(s) 11/13/2017 Not-Taking Flonase Allergy Relief 50 MCG/ACT 1 spray in each nostril Nasally Once a day for 30 day(s) 12/13/2018 Not-Taking Ibuprofen 800 MG 1 tablet Orally as needed for 30 Not-Taking Cyclobenzaprine HCl 5 MG 1 tablet Orally 2 times a day for 30 days Not-Taking metFORMIN HCl 1000 MG take one tablet by mouth twice a day with meals Orally twice a day Active Chantix Starting Month Maverick 0.5 MG X 11 & 1 MG X 42 as directed Orally one tab twice a day for 30 days 05/20/2019 Not-Taking Irbesartan 150 MG take one tablet by mouth every day Orally Once a day Active Atorvastatin Calcium 80 MG TAKE 1 TABLET BY MOUTH EVERY DAY for 90 Active Escitalopram Oxalate 20 MG TAKE 1 TABLET BY MOUTH EVERY DAY for 90 Active Cyclobenzaprine HCl 5 MG 1 tablet as nee ded Orally Three times a day for 10 days 05/31/2019 Active Tamsulosin HCl 0.4 MG TAKE ONE CAPSULE B Y MOUTH TWICE A DAY Orally twice a day Active VITAL SIGNS BMI 23.48 kg/m2 09/29/2023 Blood pressure systolic 104 mm Hg 09/29/19 24 Blood pressure diastolic 68 mm Hg 024 Height 69 in 09/29/2023 Weight 159 lbs 09/29/2023 Encounters Encounter Location Date Provider Diagnosis Jensen Mark MD [address] [place] [phone] 09/29/2023 Jensen Mark Type 2 diabetes mellitus without complication E11.9 ASSESSMENTS Encounter Date Diagnosis Assessment Notes Treatment Notes Treatment Clinical Notes 09/29/2023 Type 2 diabetes mellitus without complication (ICD-10 - E11.9) doing a little better, will continue current regiment, had knee surgery last week PLAN OF TREATMENT Medication Medication Name Sig Start Date Stop Date Notes metFORMIN HCl 1000 MG take one tablet by mouth twice a day with meals Orally twice a day Treatment Notes Assessment Notes Type 2 diabetes mellitus without complic ation doing a little better, will continue current regiment, had knee surgery last week Next Appt Details Provider Name:Jensen wade, 04/01/2024 11:00:00 AM, [address], [address], [place], [place], [phone], Progress Notes * Examination Category Sub-Category Detail Notes General Examination GENERAL APPEARANCE: alert, w ell hydrated, in no distress , male HEAD: normocephalic HEART: no murmurs, rubs, ga llops, regular rate and rhythm LUNGS: no wheezes, rales, r honchi, good air movement, clear to auscultation bilaterally SKIN: good turgor
--- OUTSIDE RECORDS SUMMARY | 2024-03-25 12:25 | XMS_ITS ---
Author Organization [facility] Address [address] [place] [address] Care Team Providers Care Pocket Maker Name Role Phone Jensen Mark MD Primary Care Provider Esa Cochran Unavailable [phone] REASON FOR VISIT needs hard copy of script of budesonide Encounters Encounter Location Date Provider Diagnosis [facility] [address] [place] [address] 12/31/2023 Esa Ramirez PLAN OF TREATMENT Next Appt Details Provider Name:Esa Ramirez , 04/27/2024 02:20:00 PM, [address], [address], [place], [address],
--- OUTSIDE RECORDS SUMMARY | 2024-03-25 12:25 | XMS_ITS ---
Author Organization [facility] Address [address] [place] [address] Care Team Providers Care Paving Contractor Name Role Phone Jensen Mark MD Primary Care Provider Esa Cochran [phone] REASON FOR VISIT COLITIS Encounters Encounter Location Date Provider Diagnosis [facility] [address] [place] [address] 01/13/2024 Esa Ramirez PLAN OF TREATMENT Next Appt Details Provider Name:Esa Ramirez , 04/27/2024 02:20:00 PM, [address], [address], [place], [address],
--- OUTSIDE RECORDS SUMMARY | 2024-03-25 12:25 | XMS_ITS | Patient Health Record ---
Author Organization [facility] Address [address] [place] [address] Care Team Providers Care Video Game Repair Technician Name Role Phone Jensen Mark MD Primary Care Provider Esa Cochran Unavailable [phone] ALLERGIES No Known Allergies REASON FOR REFERRAL No Information MEDICATIONS Medication SIG (Take, Route, Frequency, Duration) Notes Start Date End Date Status Budesonide 3 MG 1 Orally Once a day 07/09/2022 Active Irbesartan 150 MG TAKE ONE TABLET BY M OUTH EVERY DAY Oral for 90 Active Cyclobenzaprine HCl 5 MG TAKE ONE TABLET BY MOUTH THREE TIMES A DAY NEEDED FOR 10 DAYS Oral for 10 Active Tamsulosin HCl 0.4 MG TAKE ONE CAPSULE B Y MOUTH TWO TIMES A DAY Oral for 90 Active Telmisartan 40 MG 1 tablet Orally Once a day Active Escitalopram Oxalate 20 MG 0.5 tablet Or ally Once a day Active Atorvastatin Calcium 80 MG 1 tablet Oral ly Once a day Active metFORMIN HCl 500 MG 1 tablet with meals Orally Twice a day Active Multivitamin Adults 50+ - as directed Or ally once a day Active IMMUNIZATIONS Vaccine Route Administration Date Status Comme nts Influenza Unknown 01/21/2022 Administered SOCIAL HISTORY Tobacco Use: Social History Observation Description Date Details (start date - stop date) Current Smoker NA - NA Sex Assigned At : Social History Observation Description Sex Assigned At Unknown Tobacco Use/Smoking Question Answer Notes Patient is a current smoker How often do you smoke cigarettes? every day How many cigarettes a day do you smoke? 21-30 How soon after you wake up do you smoke your fir st cigarette? 6-30 minutes Are you interested in quitting? Not ready to priscilla t Alcohol Screen Question Answer Notes Did you have a drink containing alcohol in the p ast year? No Points 0 Interpretation Negative PROBLEMS Problem Type ICD Code Onset Dates Problem Status W/U Status Risk SNOMED Code Notes Problem Encounter for screening for malignant neoplasm of colon (Z12.11) Active confirmed 685418776 Problem Preprocedural examination (Z01.818) Active confirmed 072288471 Problem Diarrhea, unspecified type (R19.7) Active confirmed 98129355 Problem Weight loss (R63.4) Active confirmed 21358916 Problem Diverticulosis of large intestine without perforation or abscess without bleeding (K57.30) Active confirmed Diverticul ar disease of colon (262887379) Problem Lymphocytic colitis (K52.832) Active confirmed 6504986374 VITAL SIGNS Temperature 97.7 degrees Fahrenheit 05/15/2023 Blood pressure diastolic 00 mm Hg 05/15/2023 Height 70 in 05/15/2023 Blood pressure systolic 00 mm Hg 05/15/2023 Weight 159 lbs 05/15/2023 BMI 22.81 kg/m2 05/15/2023 Encounters Encounter Location Date Provider Diagnosis [facility] [address] [place] [phone] 05/15/2023 Esa Ramirez Lymphocytic colitis K52.832 [facility] [address] [place] [address] 01/13/2024 Esa Ramirez [facility] [address] [place] [phone] 12/31/2023 Esa Ramirez [facility] [address] [place] [phone] 01/01/2024 Esa Ramirez ASSESSMENTS Encounter Date Diagnosis Assessment Notes Treatment Notes Treatment Clinical Notes 05/15/2023 Lymphocytic colitis (ICD-10 - K52.832) Use Budesonide 1 every day or use 1 every other day [facility], along with Imodium as needed. PLAN OF TREATMENT Pending Test Test Name Order Date CHEM 7 PROFILE 07/02/2022 LIVER PROFILE 07/02/2022 TSH (THYROID STIMULATING HORMONE) 2022 CRP 07/02/2022 CBC w DIFF 07/02/2022 SED RATE (ESR) 07/02/2022 CELIAC PANEL #10 07/02/2022 Future Test Test Name Order Date COLONOSCOPY 01/21/2017 COLONOSCOPY 07/02/2022 Next Appt Details Provider Name:Esa Ramirez , 04/27/2024 02:20:00 PM, [address], [address], [place], [address], Insurance Providers Payer Name Payer Address Payer Phone Subscriber Number Group Number Insured Name Patient Relationship to Insured Coverage Start Date Coverage End Date MEDICARE OF [place] [address] [place] [address] [id number] JERRY LANGSTON Self - patient is the insured [employer] ATT[employer] CLAIMS [address] [place] [address] [id number] JERRY LANGSTON Self - patient is the insured MEDICAL (GENERAL) HISTORY Medical History History ICD Code Denies PA,CVA,renal disease NIDDM-on Metformin HTN Hyperlipidemia AAA---followed by [facility]--3.1 x 3.4cm in 2016--stable as of 04/2022 [facility] Negative screening colonosco py in August of 2006--- diverticulosis and internal hemorrhoids BPH Kidney stones COPD Lymphocytic colitis diagnose d in July of 2022 by colonoscopy with biopsies; a benign and nonadenomatous polyp was removed as well; laboratories were negative for celiac disease in regard to the diarrhea that prompted the colonoscopy and finding of lymphocytic colitis On gabapentin in relation to some perineal nerve pain and lower extremity neuropathy Surgical History Surgery Date(Month/Year) Back surgery--lower back disc Neck surgery--disc Hernia repair--right inguinal Pilonidal cyst excision
--- OUTSIDE RECORDS SUMMARY | 2024-03-25 12:25 | XMS_ITS ---
Author Organization [facility] Address [address] [place] [address] Care Team Providers Care Edging Machine Operator Name Role Phone Jensen Mark MD Primary Care Provider Esa Cochran [phone] REASON FOR VISIT R/S OV Encounters Encounter Location Date Provider Diagnosis [facility] [address] [place] [address] 01/01/2024 Esa Ramirez PLAN OF TREATMENT Next Appt Details Provider Name:Esa Ramirez , 04/27/2024 02:20:00 PM, [address], [address], [place], [address],
[2024-03-25 12:28] LABS: MANUAL DIFF FLAG NO
[2024-03-25 12:35] LABS: Basophils Percent Auto 0.3 % (0-2); Eosinophils Absolute Auto 0.1 X10*3/uL (0.0-0.4); Eosinophils Percent Auto 1.2 % (0-4); Hemoglobin 15.6 g/dl (14.0-18.0); Imm Gran Abs Auto 0.02 X10*3/uL (0.00-0.03); Imm Gran Pct Auto 0.2 % (0.0-0.4); Lymphocytes Absolute Auto 2.3 X10*3/uL (1.2-4.9); Lymphocytes Percent Auto 26.6 % (20-40); Mean Corpuscular HGB Conc 33.9 g/dl (31.0-36.0); Mean Corpuscular Hemoglobin 31.9 pg (27.0-33.0); Mean Corpuscular Volume 94.1 fL (80.0-98.0); Monocytes Percent Auto 11.6 % (2-11); Neutrophils Absolute Auto 5.2 x10*3/uL (2.0-8.3); Neutrophils Percent Auto 60.1 % (45-73); Platelet Count 213 X10*3/uL (160-400); Red Blood Count 4.89 X10*6/uL (4.60-5.80); Red Cell Distribution Width 13.2 % (11.0-16.0); White Blood Count 8.6 X10*3/uL (4.8-10.8)
[2024-03-25 12:41] LABS: Appearance Urine Cloudy; Color Urine Yellow; Glucose Urine UA Negative (Negative); Leukocyte Esterase Urine Small (1+) (Negative); Nitrite Urine Negative (Negative); PH 6.5 (5.0-9.0); Specific Gravity - Urine 1.025 (1.005-1.025); UMIC TRIGGER UACC YES; Urine Blood Negative (Negative); Urine Ketones Negative (Negative); Urine Protein 100 (2+) mg/dL (Neg-Trace)
[2024-03-25 12:44] LABS: Bacteria Urine None Seen (None Seen); Estimated Average Glucose 189 mg/dL; Hemoglobin A1C 255.8153 umol/L; Hemoglobin A1c % 8.2 % (<6.0); Hyaline Casts Urine 0-2 /LPF (0-2); RBC Urine 0-2 /HPF (0-2); Squamous Epithelial Cell Urine 0-2 /HPF (0-2); Total Hemoglobin (HGBA1C) 3891.2923 umol/L; UACC Culture Trigger YES; WBC Urine 21-50 /HPF (0-5)
[2024-03-25 13:19] LABS: Alanine Aminotransferase 37 U/L (0-40); Alkaline Phosphatase 89 U/L (39-117); Anion Gap 10 (12-20); Aspartate Amino Transferase 26 U/L (5-37); Bilirubin Total 0.6 mg/dL (0.0-1.0); Blood Urea Nitrogen 15 mg/dL (9-16); Calcium 8.9 mg/dL (8.4-10.2); Carbon Dioxide 28 mmol/L (22-29); Chloride 106 mmol/L (96-108); Cholesterol 135 mg/dL (<200); Estimated Glomerular Filt Rate > 60; Glucose Fasting 155 mg/dL (60-99); HDL Cholesterol 59 mg/dL (>40); LDL Cholesterol Calculated 65 mg/dL (<100); Potassium 3.9 mmol/L (3.3-5.1); Sodium 140 mmol/L (135-145); Total Protein 6.8 g/dL (6.5-8.0); Triglycerides 55 mg/dL (<150)
[2024-03-25 13:24] LABS: PSA,Total (Free>4and<10) 1.01 ng/mL (0.00-4.00)
[2024-03-25 13:52] LABS: Creatinine Urine 109.36 mg/dL; Microalbum/Creatinine Ratio Ur 408.7 ug/mg cr (<30)
== END 2024-03-25 12:22 | disposition home or self-care (01) ==
LOC: HO.LNP 12:21
PROVIDERS: Visit Provider Internal Medicine
DX: I10 Essential (primary) hypertension (principal); E11.9 Type 2 diabetes mellitus without complications; E78.00 Pure hypercholesterolemia, unspecified; Z12.5 Encounter for screening for malignant neoplasm of prostate
CPT/HCPCS: 80053; 80061; 81001; 82043; 82570; 83036; 84153; 85025; 87086

== ENCOUNTER 2024-09-23 10:38 | Outpatient (REF) | payer MEDICARE, SELFPAY ==
--- OUTSIDE RECORDS SUMMARY | 2024-06-30 06:15 | XMS_ITS ---
Author Organization Jensen Mark MD Address [address] [place], [place] [phone] Care Team Providers Care Investigative Writer Name Role Phone Jensen Mark Primary Care Provider Allergies No Known Allergies Results Component Value [...] Balderas 06/30/2024 10:44:59 AM >FAX REFERRAL TO [facility] FOR NEW PATIENT APPTSherrie Patti A 08/08/2024 12:00:49 PM >NOT BOOKED YET, HE WILL BE BOOKED URGENTLY AND JULIENNE WILL CALL US, Cyndee Balderas 09/12/2024 02:06:25 PM >per julienne , patient still on cancellation list , should be booked soon Referral Priority Routine REASON FOR VISIT 3 month Medications Medication [...] Date Provider Diagnosis Jensen Mark MD [address] [facility] [address] [place] [phone] 06/30/2024 Jensen Mark Type 2 diabetes mellitus [...] - R93.89) referral to cardiology/ REFFERRAL TO [facility] 06/30/2024 Current smoker (ICD-10 - F17.200) [...] chest referral to card iology/ REFFERRAL TO [facility] Current smoker not wanting to stop Lymphocytic colitis doing well on bidesi nide, will continue current regiment Referrals Referral Date Details 06/30/2024 06/30/2024, ABNORMAL CT SCAN, [place] Next Appt Details Follow Up: 3 Months, Reason: Provider Name:Jensen wade, 09/30/2024 10:15:00 AM, [address] [place] [address], [address], [phone], Provider Name:Jensen wade, 10/03/2024 02:15:00 PM, [address] [place] [address], [address], [phone], Provider Name:Jensen wade, 04/03/2025 07:30:00 AM, [address] [place] [address], [address], [phone], Provider Name:Jensen beltrer, 04/14/2025 09:30:00 AM, [address] [place] [address], [address], [phone], Progress Notes * Franky WADEDOB:1950 (74 yo M)Acc No.[id number]:06/30/2024 Progress Notes Patient: Franky LAKE Provider: Chelsie Mark MD :1950 A ge:74 Y S ex:Male Date:06/30/2024 Address: [address], [place], [id number] Subjective: * Chief Complaints: * 3 month [...] Three times a day Chantix Starting Month Maverick 0.5 MG X [...] chest? Notes: referral to cardiology/ REFFERRAL TO [facility]? Referral To:[facility] [place]??Cardiology ?Reason:ABNORMALCT SCAN 3.?Current smoker? Notes: not wanting to stop??4.?Lymphocytic colitis? Notes: doing well on bidesinide, will continue current regiment?? * Procedure Codes: 8 2947 ASSAY, GLUCOSE, BLOOD QUANT, Modifiers: QW 41252 GLYCATED HEMOGLOBIN TEST, Modifiers: QW * Follow Up: 3 Months * * Sign off status: Completed true * Provider: Chelsie Mark MD Date: 0 06/30/2024 Generated for Mary murray/Yuliana/eTransmitting on: 0 09/23/2024 11:03 AM EDT History and Physical Notes * HPI [...]
[2024-09-23 11:23] LABS: Alanine Aminotransferase 21 U/L (0-40); Albumin Level 4.1 g/dL (3.5-5.0); Alkaline Phosphatase 92 U/L (39-117); Aspartate Amino Transferase 27 U/L (5-37); Bilirubin Direct 0.2 mg/dL (0.0-0.5); Bilirubin Total 0.5 mg/dL (0.0-1.0); Cholesterol 141 mg/dL (<200); HDL Cholesterol 63 mg/dL (>40); LDL Cholesterol Calculated 68 mg/dL (<100); Total Protein 6.7 g/dL (6.5-8.0); Triglycerides 53 mg/dL (<150)
[2024-09-23 12:43] LABS: Reflex LDLD? No
== END 2024-09-23 10:39 | disposition home or self-care (01) ==
LOC: HO.LNP 10:38
PROVIDERS: Visit Provider Internal Medicine
DX: E78.00 Pure hypercholesterolemia, unspecified (principal)
CPT/HCPCS: 80061; 80076

== ENCOUNTER 2024-09-29 12:54 | Outpatient (AMB) | payer MEDICARE, SELFPAY ==
--- OUTSIDE RECORDS SUMMARY | 2024-06-30 06:15 | XMS_ITS ---
Author Organization Jensen Mark MD Address [address] [place], [place] [phone] Care Team Providers Care Orthoptist Name Role Phone Jensen Mark Primary Care [...] Balderas 06/30/2024 10:44:59 AM >FAX REFERRAL TO [facility] FOR NEW PATIENT APPTSherrie Patti A [...] Date Provider Diagnosis Jensen Mark MD [address] [facility] [address] [place] [phone] 06/30/2024 Jensen Mark Type 2 diabetes mellitus [...] - R93.89) referral to cardiology/ REFFERRAL TO [facility] 06/30/2024 Current smoker (ICD-10 - F17.200) [...] chest referral to card iology/ REFFERRAL TO [facility] Current smoker not wanting to stop Lymphocytic colitis doing well on bidesi nide, will continue current regiment Referrals Referral Date Details 06/30/2024 06/30/2024, ABNORMAL CT SCAN, [place] Next Appt Details Follow Up: 3 Months, Reason: Provider Name:Jensen wade, 09/30/2024 10:15:00 AM, [address] [place] [address], [address], [phone], Provider Name:Jensen wade, 04/03/2025 07:30:00 AM, [address] [place] [address], [address], [phone], Provider Name:Jensen wade, 04/14/2025 09:30:00 AM, [address] [place] [address], [address], [phone], Progress Notes * Franky WADEDOB:1950 (74 yo M)Acc No.[id number]:06/30/2024 Progress Notes Patient: Franky LAKE Provider: Chelsie Mark MD :1950 A ge:74 Y S ex:Male Date:06/30/2024 Address[address], [id number] Subjective: * Chief Complaints: * 3 month [...] chest? Notes: referral to cardiology/ REFFERRAL TO [facility]? Referral To:[facility] [place]??Cardiology ?Reason:ABNORMALCT SCAN 3.?Current smoker? Notes: not wanting to stop??4.?Lymphocytic colitis? Notes: doing well on bidesinide, will continue current regiment?? * Procedure Codes: 8 2947 ASSAY, GLUCOSE, BLOOD QUANT, Modifiers: QW 72198 GLYCATED HEMOGLOBIN TEST, Modifiers: QW * Follow Up: 3 Months * * Sign off status: Completed true * Provider: Chelsie Mark MD Date: 0 06/30/2024 Generated for Mary murray/Yuliana/Baldomeroitting on: 0 09/29/2024 03:22 PM EDT History and Physical Notes * [...]
--- NOTE | 2024-09-29 12:57 | MHC.OFFVIS ---
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 The calcification was found during lung cancer screening due to smoking history. He is on his tenth day of smoking cessation with nicotine replacement. The patient has diabetes, hypertension, hyperlipidemia, and depression, managed with medication. He is active with no chest pain, engaging in gardening and furniture building. Neuropathy limits treadmill stress testing, requiring a chemical stress test. History of cervical and lumbar fusion with no current back pain. COPD is present but does not affect daily activities significantly. [facility] Medical History COPD (chronic obstructive pulmonary disease) Hypertension Diabetes Sciatica Kidney stone Surgical History History of laminectomy History of hernia surgery Previous back surgery Family History (Updated 09/29/24 @ 13:05 by Rosibel Woodard) Mother No problems noted. Father No problems noted. Social History Alcohol intake: never Patient Tobacco Use Status: Current everyday Tobacco user Tobacco use type: Cigarette Cigarette Packs Per Day: 1 Cigarettes Per Day: 20.0 Review of Systems Const Denies weakness ENT Denies dizziness Card Denies chest pain, Denies chest pain with activity, Denies syncope, Denies rapid heart rate, Denies pedal edema, Denies edema, Denies leg edema, Denies lightheadedness, Denies palpitations, Denies dyspnea, Denies dyspnea on exertion and Denies orthopnea Resp Denies cough, Denies dyspnea and Denies dyspnea on exertion GI Denies hematochezia and Denies change in stool character Musc Denies abnormal gait, Denies muscle cramps, Denies muscle weakness, Denies numbness, Denies radiating pain into limb and Denies tingling Neuro Denies abnormal gait, Denies dizziness, Denies syncope, Denies numbness, Denies tingling and Denies weakness Endo Denies palpitations Physical Exam Vital Signs: Last Vital Signs Pulse 65 09/29/24 12:58 BP 120/62 09/29/24 12:58 BMI result Body Mass Index 22.8 Const General: comfortable and no acute distress Orientation/consciousness: patient oriented x3 HEENT Other: Unremarkable Head: Yes normal to inspection Neck Neck: Yes normal visual inspection Chest Chest palpation & inspection: normal inspection of the chest Resp Auscultation: clear to auscultation bilaterally Cardio Palpation: normal PMI Heart sounds: S1 normal heart sound present, S2 normal heart sound present, no gallops, no murmurs and no rubs GI Palpation (GI): Soft to palpation Back/Spine/Pelvis Other: unremarkable Skin General skin exam: no rashes or lesions noted Neuro General: patient oriented x3 Extrem General: Yes normal to inspection Psych Mental Status: mental status grossly normal Office Procedures EKG Details: EKG with underlying sinus rhythm at 65/Min; no ischemic changes; [place] [address]-[id number], Complete Assessment & Plan Assessment & Plan (1) Coronary artery calcification seen on CAT scan: Code(s): I25.10 - Atherosclerotic heart disease of [place] coronary artery without angina pectoris Category: Medical (2) Diabetes: Code(s): E11.9 - Type 2 diabetes mellitus without complications Category: Medical (3) Hypertension: Code(s): I10 - Essential (primary) hypertension Category: Medical (4) Hyperlipidemia, unspecified: Code(s): E78.5 - Hyperlipidemia, unspecified Category: Medical Plan A chemical stress test is planned due to neuropathy limiting exercise testing. An echocardiogram will evaluate cardiac function. Continue nicotine replacement for smoking cessation. Maintain current medications for diabetes, hypertension, hyperlipidemia, and depression. Monitor COPD symptoms to ensure no impact on activities. Discussion Notes I discussed with the patient the incidental finding of coronary artery calcification on the CT scan performed for lung cancer screening. We talked about the significance of this finding and the need for further evaluation through a chemical stress test and echocardiogram. I emphasized the importance of smoking cessation and continued support with nicotine replacement therapy. We reviewed the management of his chronic conditions, including diabetes, hypertension, hyperlipidemia, and depression. Patient was informed and verbally consented to the use of an ambient scribe for clinic note documentation during this visit. Orders: Orders CA echo transthoracic complete Today I25.10 - Atherosclerotic heart disease of [place] coronary artery without angina pectoris CA lexiscan stress w crow Today I25.10 - Atherosclerotic heart disease of [place] coronary artery without angina pectoris NM cardiolite stress test Today I25.10 - Atherosclerotic heart disease of [place] coronary artery without angina pectoris Medications: Discontinued acetaminophen (Tylenol Extra Strength) Discontinued Reason: Patient no longer taking 1,000 mg (2 x 500 mg) PO QID PRN 14 tabs 0RF fever or pain oxycodone Discontinued Reason: Patient no longer taking 5 mg PO BID PRN 10 tabs 0RF pain diazepam (Valium) Discontinued Reason: Patient no longer taking 10 mg PO TID PRN 10 tabs 0RF muscle spasm ibuprofen Discontinued Reason: Patient no longer taking 800 mg PO Q8H PRN 14 tabs 0RF pain ondansetron HCl (Zofran) Discontinued Reason: Patient no longer taking 4 mg PO Q8H PRN 14 tabs 0RF nausea and vomiting prednisone Discontinued Reason: Patient no longer taking 40 mg (2 x 20 mg) PO DAILY 5 days 10 tabs 0RF rash oxycodone Discontinued Reason: Patient no longer taking 5 mg PO Q6H PRN 12 caps 0RF pain Patient Instructions: - Smoking cessation. - Follow up for a chemical stress test and echocardiogram as scheduled. - Maintain current medications for diabetes, hypertension, hyperlipidemia, and depression. - Monitor for any changes in breathing or activity tolerance and report if symptoms worsen. Coding Level of Care Code New Pt Level 4 (67929) Complex EM visit Add On G2211 Diagnoses Coronary artery calcification seen on CAT scan I25.10 Diabetes E11.9 Hypertension I10 Hyperlipidemia, unspecified E78.5 CPT Codes EKG - CPT: 64031-Jmoyqscgyvxhovqnv, Complete ([id number])
[2024-09-29 12:58] VITALS: BP 120/62; PULSE 65; BMI 22.8
== END 2024-09-29 13:24 | disposition home or self-care (01) ==
LOC: HO.HCS 12:55
PROVIDERS: PCP Internal Medicine; Visit Provider Internal Medicine
DX: I25.10 Atherosclerotic heart disease of native coronary artery without angina pectoris (principal); E11.9 Type 2 diabetes mellitus without complications; I10 Essential (primary) hypertension; E78.5 Hyperlipidemia, unspecified
CPT/HCPCS: 93010; 99204; G2211

== ENCOUNTER → 2024-09-29 12:54 | Outpatient (BNVA) | payer MEDICARE, SELFPAY | PROVIDERS: PCP Internal Medicine; Visit Provider Internal Medicine | DX: I25.10 Atherosclerotic heart disease of native coronary artery without angina pectoris (principal); I10 Essential (primary) hypertension; E11.9 Type 2 diabetes mellitus without complications; E78.5 Hyperlipidemia, unspecified | CPT/HCPCS: 93005; 99202 ==

== ENCOUNTER → 2024-11-01 14:48 | Outpatient (REF) | payer MEDICARE, SELFPAY ==
--- OUTSIDE RECORDS SUMMARY | 2024-10-04 07:40 | XMS_ITS ---
Author Organization Jensen aMrk MD Address [address] [place] [address] [phone] Care Team Providers Care Content Writer Name Role Phone Jensen Mark Primary Care Provider REASON FOR VISIT lantus Encounters Encounter Location Date Provider Diagnosis Jensen Mark MD 10 [facility] [address] [place] [address] [phone] 10/04/2024 Jensen Mark Plan Of Treatment Next Appt Details Provider Name:Jensen Summers ier, 12/29/2024 10:45:00 AM, [address] [place] [address], [address] [place] [address], [phone], Provider Name:Jensen Summers ier, 04/03/2025 07:30:00 AM, [address] [place] [address], [address] [place] [address], [phone], Provider Name:Jensen Summers iejohanna, 04/14/2025 09:30:00 AM, [address] [place] [address], [address] [place] [address], [phone], Progress Notes * Franky WADEDOB:1950 (74 yo M)Acc No.[id number]:10/04/2024 Patient: Franky LAKE :1950 A ge:74 Y S ex:Male Address: [address], [place] [address] * true * Date: Generated for Mary murray/Yuliana/Paulransmitting on: 0 11/01/2024 03:35 PM EDT
--- NOTE | 2024-11-01 14:50 | CA_ITS ---
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 Study Quality: Adequate ECG Rhythm: Sinus Conclusions: - 1. Normal LV ejection fraction of 60 65% with impaired relaxation filling pattern next 2. Calcific aortic and mitral valve changes noted with normal cardiac valvular Dopplers 3. Upper limits and normal ascending aortic size 4. No gross pericardial effusion Findings Left Ventricle Normal left ventricular size, thickness, and systolic function. The visually estimated ejection fraction is between 60-65%. Spectral Doppler is indicative of an impaired relaxation filling pattern. E/E prime ratio is between 8 and 15 consistent with indeterminate filling pressures. Right Ventricle Normal right ventricular cavity size and systolic function. Atria Both atria are normal in size. There is no evidence of interatrial shunt. Aortic Valve There is mild calcification of the aortic valve. There is no aortic valve stenosis. There is no aortic valve regurgitation. Mitral Valve There is mild anterior and posterior mitral leaflet thickening. There is mild mitral annular calcification. There is trace mitral valve regurgitation. There is no mitral valve stenosis. Pulmonic Valve The pulmonic valve is likely normal. There is trace pulmonic valve regurgitation. Tricuspid Valve Likely normal tricuspid valve structure and function. Tricuspid regurgitation envelope is inadequate for calculation of right ventricular systolic pressure. Normal right atrial pressure. Great Vessels The pulmonary artery was not well visualized. There is no dilatation of the ascending aorta measuring 3.60 cm. Small plaque is seen in the sino tubular ridge. Venous The inferior vena cava is normal in size and collapses greater than 50% with inspiration. Pericardium/Pleural There is no evidence of pericardial effusion. Prior Study Comparison No prior study available for comparison. Measurements 2D Linear Measurements IVSd: 0.88 0.6-0.9/0.6-1.0 cm LVIDd: 4.42 3.9-5.3/4.2-5.9 cm LVIDd Index: 2.39 2.4-3.2/2.2-3.1 cm/m2 LVIDs: 3.05 2.0-3.6 cm LVPWd: 0.82 0.7-1.1 cm Ao Root: 3.70 2.1-3.5 cm LA Diam: 3.30 2.7-3.8/3.0-4.0 cm LAIDs Index: 1.78 1.5-2.3 cm/m2 LV Mass: 149.17 67-162/88-224 g LV Mass Index: 80.63 43-95/49-115 g/m2 LVOT Diam: 2.10 3.0+(-)1.3 cm 2D Systolic Function EF 4C: 63.50 >55% EF 2C: 62.50 >55% EF BiP: 63.60 >55% Mitral Valve MV Pk E: 1.00 MV PK A: 0.88 MV Decel Time: 179.00 E/A: 1.10 E'Lateral: 9.68 E'Medial: 8.49 E/E' Med: 11.80 E/E' Lat: 10.30 PHT: 52.00 MVA PHT: 4.23 Decel Collin: 5.57 Aortic Valve AoV Pk Faraz: 1.79 AoV Mn Faraz: 1.30 AoV VTI: 0.41 AoV Pk Grad: 13.00 Aov Mn Grad: 8.00 HEATHER Cont.VTI: 2.45 LVOT LVOT Pk Faraz: 1.39 LVOT Mn Faraz: 0.74 LVOT VTI: 0.29 LVOT Pk Grad: 8.00 LVOT Mn Grad: 3.00 LVOT Diam: 2.10 LVOT Area: 3.46 Diastolic Function MV Pk E: 1.00 MV Pk A: 0.88 E/A: 1.10 E'Medial: 8.49 E/E' Med: 11.80 E' Laterial: 9.68 E/E' Lat: 10.30 Right Ventricle TAPSE (mm): 25.00 TVS' Faraz: 14.00 Tricuspid Valve TR Pk Faraz: 2.39 TR Pk Grad: 23.00 Great Vessels Aorta Ao Root-2D: 3.70 2.0-3.7 cm Ao Asc: 3.60 2.1-3.4 cm Pulmonary Valve PV Pk Faraz: 0.76 Peak PV Grad: 2.00 Updated in Other Vendor System with Status of Final Quentin Poe MD electronically signed on 11/02/2024 3:47:56 PM with status of Final
== END ==
LOC: HO.CARD 14:48
PROVIDERS: PCP Internal Medicine; Visit Provider Internal Medicine
DX: I25.10 Atherosclerotic heart disease of native coronary artery without angina pectoris (principal)
CPT/HCPCS: 93306

== ENCOUNTER → 2024-11-01 14:50 | Outpatient (BNV) | payer MEDICARE, SELFPAY | PROVIDERS: PCP Internal Medicine; Visit Provider Internal Medicine Cardiovascular Disease | DX: I35.8 Other nonrheumatic aortic valve disorders (principal); I34.81 Nonrheumatic mitral (valve) annulus calcification | CPT/HCPCS: 93306 ==

== ENCOUNTER → 2024-11-22 07:39 | Outpatient (REF) | payer MEDICARE, SELFPAY ==
--- OUTSIDE RECORDS SUMMARY | 2024-10-04 07:40 | XMS_ITS ---
Author Organization Jensen Mark MD Address [address] [place] [address] [phone] Care Team Providers Care Zoogler Name Role Phone Jensen Mark Primary Care Provider REASON FOR VISIT lantus Encounters Encounter Location Date Provider Diagnosis Jensen Mark MD 10 [facility] [address] [place] [address] [phone] 10/04/2024 Jensen Mark Plan Of Treatment Next Appt Details Provider Name:Jensen Summers ier, 12/29/2024 10:45:00 AM, [address] [place] [address], [address] [place] [address], [phone], Provider Name:Jensen Summers ier, 04/03/2025 07:30:00 AM, [address] [place] [address], [address] [place] [address], [phone], Provider Name:Jensen Summers iejohanna, 04/14/2025 09:30:00 AM, [address] [place] [address], [address] [place] [address], [phone], Progress Notes * Franky WADEDOB:1950 (74 yo M)Acc No.[id number]:10/04/2024 Patient: Franky LAKE :1950 A ge:74 Y S ex:Male Address: [address], [place] [address] * true * Date: Generated for Mary murray/Yuliana/Paulransmitting on: 0 11/22/2024 07:41 AM EDT
--- NOTE | ~2024-11-22 | NM_ITS ---
Lexiscan Myocardial perfusion study Indication: Atherosclerotic heart disease to evaluate for myocardial ischemia Technique: The patient was brought in for a Lexiscan perfusion study on 11/22/2024 and was injected 0.4 mg of Lexiscan intravenously. Within a minute of this injection 25 mCi of sestamibi was given intravenously. Images were obtained using the SPECT gamma camera interlaced with the gating device. Images were obtained in supine position. Resting perfusion study was performed on 11/23/2024. Patient was administered 25 mCi of sestamibi intravenously at rest. Images were then obtained in supine position. Images obtained without without CT attenuation. Total DLP 67 mGy-cm. Images were processed with the software and compared side to side in short axis, horizontal long axis and vertical long axis views. Findings: The stress perfusion study showed nonattenuated images show severely reduced uptake in the inferior, inferoseptal as well as mildly reduced uptake in the septum of the LV myocardium. Attenuated corrected images show moderately reduced uptake in the inferior as well as inferoseptal wall of the LV myocardium as well as moderately reduced uptake in the apex of the LV myocardium.. The gated study shows normal LV systolic function with calculated LVEF of 51%. LV cavity is mildly to moderately in size. The gated study shows mild reduction in wall thickening and contraction of inferior and inferoseptal segments. Resting study shows nonattenuated images shows improved uptake in the inferior and inferoseptal wall of the LV myocardium as well as the apex.. Gating at rest reveals normal systolic wall motion with ejection fraction at 70%. The findings are consistent with large area of severe ischemia of the inferior, inferoseptal and apical wall suggestive of ischemia in RCA territory. NM/NM cardiolite stress test Impression: 1. Myocardial perfusion imaging study shows large area of severe ischemia in RCA territory 2. Gated LVEF is 51% with stress and 70% with rest 3. Transient ischemic dilatation present Nondiagnostic changes on EKG. Electronically signed by: Quentin Poe MD 11/23/2024 04:55 PM EDT
--- NOTE | 2024-11-22 07:41 | CA_ITS ---
Acquisition Time: 2024-11-22 08:05:05 Total Exercise Time: 00:02:00 Test Indications: I25.10 Medications: SEE H&P Protocol: LEXISCAN Max HR: 84 BPM 56% of Pred: 148 BPM Max BP: 130/76 mmHG Max Work Load: 1.6 METS Pharmacological stress test with Lexiscan while pt walked slow on treadmill, with reports of dizziness, 1/10 upper chest pain, nausea and abdominal discomfort, without any arrythmias, with normotensive response to injection. Nondiagnostic EKG for ischemia. In recovery, pt treated with IVP Aminophylline 75 mg to reverse Lexiscan after which pt slowly feeling back to baseline. Nuclear images pending. Test reviewed with Dr. Poe. Referred By: Mahendra Blanchard Electronically Signed By: Calderon Sebastian
--- OUTSIDE RECORDS SUMMARY | 2024-11-22 07:41 | XMS_ITS | Patient Health Record ---
Author Organization [facility] Address [address] [place] [address] Care Team Providers Care Medical Delivery Driver Name Role Phone Jensen Mark MD Primary Care Provider Esa Cochran Unavailable [phone] Allergies No Known Allergies Reason For Referral No Information Medications Medication SIG (Take, Route, Frequency, Duration) Notes Start Date End Date Status Atorvastatin Calcium 80 MG 1 tablet Oral ly Once a day Active metFORMIN HCl 500 MG 1 tablet with meals Orally Twice a day Active Multivitamin Adults 50+ - as directed Or ally once a day Active Tamsulosin HCl 0.4 MG TAKE ONE CAPSULE B Y MOUTH TWO TIMES A DAY Oral for 90 Active Irbesartan 150 MG TAKE ONE TABLET BY M OUTH EVERY DAY Oral for 90 Active Telmisartan 40 MG 1 tablet Orally Once a day Active Escitalopram Oxalate 20 MG 0.5 tablet Or ally Once a day Active Cyclobenzaprine HCl 5 MG TAKE ONE TABLET BY MOUTH THREE TIMES A DAY NEEDED FOR 10 DAYS Oral for 10 Active Budesonide 3 MG 1 Orally Once a day 07/09/2022 Active Immunizations Vaccine Route Administration Date Status Comme nts Influenza Unknown 01/21/2022 Administered Influenza Unknown 04/27/2024 Refused Social History Tobacco Use: Social History Observation [...] ast year? No Points 0 Interpretation Negative Section Notes: Smoker 1 1/2 ppd; 1 drink pe r night Smoker 1 1/2 ppd; 1 drink pe r night Smoker 1 1/2 ppd; Smoker 1 1/2 ppd; Smoker 1 1/2 ppd; Problems Problem Type SNOMED Code ICD Code Onset Dates Problem Status W/U Status Risk Notes Problem 202245372 Encounter for screening for malignant neoplasm of colon (Z12.11) Active confirmed Problem 35909688 Weight loss (R63.4) Active confirmed Problem Diverticular disease of colon (952171528) Diverticulosis of large intestine without perforation or abscess without bleeding (K57.30) Active confirmed Problem 883061254 Preprocedural examination (Z01.818) Active confirmed Problem 56707305 Diarrhea, unspecified type (R19.7) Active confirmed Problem 0284701363 Lymphocytic colitis (K52.832) Active confirmed Vital Signs Temperature 97.7 degrees Fahrenheit 04/27/2024 Blood pressure diastolic 00 mm Hg 04/27/2024 Height 70 in 04/27/2024 Blood pressure systolic 000 mm Hg 04/27/2024 Weight 152 lbs 04/27/2024 BMI 21.81 kg/m2 04/27/2024 Encounters Encounter Location Date Provider Diagnosis [facility] [address] [place] [phone] 04/27/2024 Esa Ramirez Diarrhea, unspecifie d type R19.7 and Lymphocytic colitis K52.832 [facility] [address] [place] [phone] 12/31/2023 Esa Ramirez [facility] [address] [place] [phone] 01/01/2024 Esa Ramirez [facility] [address] [place] [phone] 04/28/2024 Esa Ramierz Assessments Encounter Date Diagnosis (ICD Code) Assessment Notes Treatment Notes Treatment Clinical Notes Section Notes 04/27/2024 Diarrhea, unspecified type (ICD-10 - R19.7) Conitnue the one 3mg Budesonide daily and take 2 Imodium every morning and at lunchtime. If things persist with diarrhea then let me know and we can increase the Budesonide to 2 pills daily. Overall, Franky appears well and things seem to be relatively stable in regard to the underlying lymphocytic colitis. I did recommend that he continue the one 3 mg budesonide daily but increase the Imodium to 2 in the morning and 2 in the afternoon to see if that can help with the loose bowel movements. I also advised him to let me know if things persist or worsen and we can always increase the budesonide at that point if need be. Of note, he does take metformin for diabetes and this is certainly known to cause loose stools in patients. That might be something to consider changing if the loose stools remain problematic. At this point I don't think he needs any diagnostic testing. I will plan to see him in one year for a followup visit but advised him to definitely keep in touch if he is having any problems or questions I can be of assistance with. Franky was comfortable with this plan. Thank you again for allowing me to participate in Franky's care. I shall continue to keep you advised of his progress 04/27/2024 Lymphocytic colitis (ICD-10 - K52.832) Overall, Franky appears well and things seem to be relatively stable in regard to the underlying lymphocytic colitis. I did recommend that he continue the one 3 mg budesonide daily but increase the Imodium to 2 in the morning and 2 in the afternoon to see if that can help with the loose bowel movements. I also advised him to let me know if things persist or worsen and we can always increase the budesonide at that point if need be. Of note, he does take metformin for diabetes and this is certainly known to cause loose stools in patients. That might be something to consider changing if the loose stools remain problematic. At this point I don't think he needs any diagnostic testing. I will plan to see him in one year for a followup visit but advised him to definitely keep in touch if he is having any problems or questions I can be of assistance with. Franky was comfortable with this plan. Thank you again for allowing me to participate in Franky's care. I shall continue to keep you advised of his progress Plan Of Treatment Pending Test Test Name Order Date CHEM 7 PROFILE 07/02/2022 LIVER PROFILE 07/02/2022 TSH (THYROID STIMULATING HORMONE) 2022 CRP 07/02/2022 CBC w DIFF 07/02/2022 SED RATE (ESR) 07/02/2022 CELIAC PANEL #10 07/02/2022 Future Test Test Name Order Date COLONOSCOPY 01/21/2017 COLONOSCOPY 07/02/2022 Next Appt Details Provider Name:Esa Ramirez , 04/28/2025 01:00:00 PM, [address], [address], [place], [phone], Insurance Providers Payer Name Payer Address Payer Phone Subscriber Number Group Number Insured Name Patient Relationship to Insured Coverage Start Date Coverage End Date MEDICARE OF [place] [address] [place] [address] [id number] FRANKY LANGSTON Self - patient is the insured [employer] ATT[employer] CLAIMS [address] [place] [phone] [id number] FRANKY LANGSTON Self - patient is the insured Medical (General) History Medical History History ICD Code Denies CA,CVA,renal disease NIDDM-on Metformin HTN Hyperlipidemia AAA---followed by [...] the colonoscopy and finding of lymphocytic colitis Surgical History Surgery Date(Month/Year) Back surgery--lower back disc Neck surgery--disc Hernia repair--right inguinal Pilonidal cyst excision
== END ==
LOC: HO.CARD 07:39
PROVIDERS: PCP Internal Medicine; Visit Provider Internal Medicine
DX: I25.10 Atherosclerotic heart disease of native coronary artery without angina pectoris (principal)
CPT/HCPCS: 78452; 93017; A9500; J0280; J2785

== ENCOUNTER → 2024-11-22 07:41 | Outpatient (BNV) | payer MEDICARE, SELFPAY | PROVIDERS: PCP Internal Medicine | DX: R07.9 Chest pain, unspecified (principal) | CPT/HCPCS: 78452; 93016; 93018 ==

== ENCOUNTER 2024-11-28 13:39 | Outpatient (AMB) | payer MEDICARE, SELFPAY ==
--- OUTSIDE RECORDS SUMMARY | 2024-01-13 09:20 | XMS_ITS ---
Author Organization [facility] Address [address] [place] [address] Care Team Providers Care Nutrition Technician Name Role Phone Jas CARTAGENA, Jensen Primary Care Provider Esa Cochran [phone] REASON FOR VISIT COLITIS Encounters Encounter Location Date Provider Diagnosis [facility] [address] [place] [address] 01/13/2024 Esa Ramirez Plan Of Treatment Next Appt Details Provider Name:Esa Ramirez , 04/28/2025 01:00:00 PM, [address], [address], [place], [address], Progress Notes * JERRY LANGSTON PDOB:[birth year] (74 yo M)Acc No.[id number]:01/13/2024 Progress Notes Patient: Laura NAIRJERRY Provider: Mini Ramirez MD :1950 A ge:73 Y S ex:Male Date:01/13/2024 Address: [address], [id number] Pcp:Jensen Mark MD Subjective: * Chief Complaints: * 1 . COLITIS. * Medical History: Objective: * Vitals: Assessment: Plan: * Treatment: * * The named appointment provid er may or may not be the originator of this progress note, and it is not deemed complete until electronically signed by the appointment provider. Sign off status: Pending * Provider: Mini Ramirez MD Date: 1 Generated for Mary murray/Yuliana/Gm on: 0 11/28/2024 02:56 PM EDT
--- OUTSIDE RECORDS SUMMARY | 2024-10-03 12:15 | XMS_ITS ---
Author Organization Jensen Mark MD Address [address] [place] [phone] Care Team Providers Care Occupational Therapist Assistant Name Role Phone Jensen Mark Primary Care Provider Allergies No Known Allergies REASON FOR VISIT 3 MO F/U Encounters Encounter Location Date Provider Diagnosis Jensen Mark MD 10 [facility] [address] [place] [phone] 10/03/2024 Jensen Mark Plan Of Treatment Next Appt Details Provider Name:Jensen Summers ier, 12/29/2024 10:45:00 AM, [address] [place] [address], [address] [place] [address], [phone], Provider Name:Jensen Summers ier, 04/03/2025 07:30:00 AM, [address] [place] [address], [address] [place] [address], [phone], Provider Name:Jensen Summers iejohanna, 04/14/2025 09:30:00 AM, [address] [place] [address], [address] [place] [address], [phone], Progress Notes * Franky WADEDOB:1950 (74 yo M)Acc No.[id number]:10/03/2024 Progress Notes Patient: Franky LAKE Provider: Chelsie Mark MD :1950 A ge:74 Y S ex:Male Date:10/03/2024 Address: [address], [place], [id number] Subjective: * Chief Complaints: * 1 . [...] * Provider: Chelsie Mark MD Date: 0 10/03/2024 Generated for Printi ng/Yuliana/Baldomeroitting on: 0 11/28/2024 02:56 PM EDT
--- OUTSIDE RECORDS SUMMARY | 2024-10-04 07:40 | XMS_ITS ---
Author Organization Jensen Mark MD Address [address] [place] [address] [phone] Care Team Providers Care Yeast Culture Developer Name Role Phone Jensen Mark Primary Care Provider REASON FOR VISIT lantus Encounters Encounter Location Date Provider Diagnosis Jensen Mark MD 10 [facility] [address] [place] [address] [phone] 10/04/2024 Jensen Mark Plan Of Treatment Next Appt Details Provider Name:Jensen Summers ier, 12/29/2024 10:45:00 AM, [address] [place] [address], [address] [place] [address], [phone], Provider Name:Jensen Summers ier, 04/03/2025 07:30:00 AM, [address] [place] [address], [address] [place] [address], [phone], Provider Name:Jensen Summers iejohanna, 04/14/2025 09:30:00 AM, [address] [place] [address], [address] [place] [address], [phone], Progress Notes * Franky WADEDOB:1950 (74 yo M)Acc No.[id number]:10/04/2024 Patient: Franky LAKE :1950 A ge:74 Y S ex:Male Address: [address], [place] [address] * true * Date: Generated for Mary murray/Yuliana/Paulransmitting on: 0 11/28/2024 02:56 PM EDT
--- OUTSIDE RECORDS SUMMARY | 2024-10-27 09:45 | XMS_ITS ---
Author Organization Jensen Mark MD Address [address] [place], [place] [phone] Care Team Providers Care Agricultural Consultant Name Role Phone Jensen Mark Primary Care [...] Location Date Provider Diagnosis Jensen Mark MD [address] [place] [phone] 10/27/2024 Jensen Mark Type 2 diabetes mellitus [...] Up: 2 Months, Reason: Provider Name:Jensen wade, 12/29/2024 10:45:00 AM, [address] [place] [address], [address], [phone], Provider Name:Jensen wade, 04/03/2025 07:30:00 AM, [address] [place] [address], [address], [phone], Provider Name:Jensen wade, 04/14/2025 09:30:00 AM, [address] [place] [address], [address], [phone], Progress Notes * Franky WADEDOB:1950 (74 yo M)Acc No.[id number]:10/27/2024 Progress Notes Patient: Franky LAKE Provider: Chelsie Mark MD :1950 A ge:74 Y S ex:Male Date:10/27/2024 Address: [address], [place], [id number] Subjective: * Chief Complaints: * 4 WK [...] 0 10/27/2024 Generated for Mary ng/Debig/eTransmitting on: 0 11/28/2024 02:56 PM EDT History and Physical Notes * [...]
[2024-11-28 14:13] VITALS: BP 138/78; PULSE 68; BMI 23.1
--- NOTE | 2024-11-28 14:13 | A.OFFVIS_ITS ---
Vital Signs 11/28/24 14:13 Height 5 ft 9 in Weight 156 lb 8.451 oz BMI 23.1 BP 138/78 Blood Pressure Location Lt brachial Position Sitting Pulse 68 Pulse Source Pulse Oximeter Intake Visit Reasons: follow up/ echo/amie mibi Allergies No Known Allergies Allergy (Unverified 12/22/19 15:35) Medication List - Last Reconciled 11/28/24 by Mahendra Blanchard MD aspirin (Adult Aspirin Regimen) 81 mg PO DAILY atorvastatin 80 mg PO DAILY budesonide DR-ER 3 mg PO DAILY escitalopram oxalate 20 mg PO DAILY irbesartan 150 mg PO DAILY metformin 1,000 mg PO BID metoprolol succinate ER (Toprol XL) 25 mg PO DAILY tamsulosin 0.4 mg PO BID HPI Comments Details: Franky returns for follow-up. Recently seen in consultation due to coronary art deidre calcification on CT scan. This was done because of lung cancer screening from smoking history. Multiple risk factors including diabetes, hypertension, dyslipidemia. Overall, he is generally active without any major limitations. No overt angina. Recently completed an echocardiogram and stress test. FORMERLY [facility], 1928–1983 Medical History COPD (chronic obstructive pulmonary disease) Hypertension Diabetes Sciatica Kidney stone Surgical History History of laminectomy History of hernia surgery Previous back surgery Family History (Updated 09/29/24 @ 13:05 by Rosibel Woodard) Mother No problems noted. Father No problems noted. Social History Alcohol intake: never Patient Tobacco Use Status: Current everyday Tobacco user Tobacco use type: Cigarette Cigarette Packs Per Day: 1 Cigarettes Per Day: 20.0 Review of Systems Const Denies weakness ENT Denies dizziness Card Denies chest pain, Denies chest pain with activity, Denies syncope, Denies rapid heart rate, Denies pedal edema, Denies edema, Denies leg edema, Denies lightheadedness, Denies palpitations, Denies dyspnea, Denies dyspnea on exertion and Denies orthopnea Resp Denies cough, Denies dyspnea and Denies dyspnea on exertion GI Denies hematochezia and Denies change in stool character Musc Denies abnormal gait, Denies muscle cramps, Denies muscle weakness, Denies numbness, Denies radiating pain into limb and Denies tingling Neuro Denies abnormal gait, Denies dizziness, Denies syncope, Denies numbness, Denies tingling and Denies weakness Endo Denies palpitations Physical Exam Vital Signs: Last Vital Signs Pulse 68 11/28/24 14:13 BP 138/78 11/28/24 14:13 BMI result Body Mass Index 23.1 Const General: comfortable and no acute distress Orientation/consciousness: patient oriented x3 HEENT Other: Unremarkable Head: Yes normal to inspection Neck Neck: Yes normal visual inspection Chest Chest palpation & inspection: normal inspection of the chest Resp Auscultation: clear to auscultation bilaterally Cardio Palpation: normal PMI Heart sounds: S1 normal heart sound present, S2 normal heart sound present, no gallops, no murmurs and no rubs GI Palpation (GI): Soft to palpation Back/Spine/Pelvis Other: unremarkable Skin General skin exam: no rashes or lesions noted Neuro General: patient oriented x3 Extrem General: Yes normal to inspection Psych Mental Status: mental status grossly normal Assessment & Plan Assessment & Plan (1) Coronary artery calcification seen on CAT scan: Code(s): I25.10 - Atherosclerotic heart disease of [place] coronary artery without angina pectoris Category: Medical (2) Diabetes: Code(s): E11.9 - Type 2 diabetes mellitus without complications Category: Medical (3) Hypertension: Code(s): I10 - Essential (primary) hypertension Category: Medical (4) Hyperlipidemia, unspecified: Code(s): E78.5 - Hyperlipidemia, unspecified Category: Medical (5) Smoker: Code(s): F17.200 - Nicotine dependence, unspecified, uncomplicated Category: Social Hx Plan Echocardiogram with LVEF of 60-65%. Aortic/mitral valve calcific changes. Myocardial perfusion imaging study reported to have a large area of severe ischemia in the RCA territory. LVEF 51% with rest and 70% during rest. Transient ischemic dilatation reported to be present. Chest CT scan reported have calcific plaques in the coronaries, thoracic aorta and main branches. We discussed the findings in great detail. He has got no overt symptoms but quite abnormal testing as above. Hence we decided to proceed with a diagnostic catheterization. We discussed the procedure in detail and they agreed to proceed. We will arrange that in the near future. In the interim, if any concerning symptoms like chest pain, advised him to contact us immediately or seek emergency help. He is on aspirin. Beta-blockers have been added. Continue high-dose statins. Strongly advised smoking cessation. Otherwise, aggressive risk factor modification. Discussed with significant other. Discussion Notes I discussed with the patient the findings of plaque buildup in the coronary arteries and the potential need for an angiogram to further evaluate the extent of blockages. We talked about the importance of smoking cessation and the continuation of current medications to manage cardiovascular risk. The patient was informed about the procedure details, including the use of local anesthesia and sedation during the angiogram, and the possibility of stenting if necessary. Patient was informed and verbally consented to the use of an ambient scribe for clinic note documentation during this visit. Orders: Orders Cardiac Cath LT Diagnostic Today I25.10 - Atherosclerotic heart disease of [place] coronary artery without angina pectoris Basic Metabolic Panel Today I25.10 - Atherosclerotic heart disease of [place] coronary artery without angina pectoris Prothrombin Time INR Today I25.10 - Atherosclerotic heart disease of [place] coronary artery without angina pectoris Complete Blood Count no Diff Today I25.10 - Atherosclerotic heart disease of [place] coronary artery without angina pectoris Patient Instructions: - Continue smoking cessation efforts to improve lung and cardiovascular health. - Maintain current medications, including aspirin, statins, and metoprolol, as prescribed. - Attend the scheduled angiogram appointment for further evaluation of coronary artery disease. - Monitor for any new symptoms such as chest pain or shortness of breath and seek medical attention if they occur. Coding Level of Care Code Est Pt Level 4 (06267) Complex EM visit Add On G2211 Diagnoses Coronary artery calcification seen on CAT scan I25.10 Diabetes E11.9 Hypertension I10 Hyperlipidemia, unspecified E78.5 Smoker F17.200
--- OUTSIDE RECORDS SUMMARY | 2024-11-28 14:57 | XMS_ITS | Patient Health Record ---
Author Organization Jensen Mark MD Address [address] [place], [place] [id number] Care Team Providers Care Director Print Name Role Phone Jensen Mark Primary Care Provider [phone] Allergies No Known Allergies Results Component Value Reference Range Notes Hemoglobin A1c Reviewed date:06/30/2024 10:06:28 AM Interpretation: Performing Lab: Notes/Report: Hemoglobin A1c 8.5 Hemoglobin A1c Reviewed date:09/30/2024 10:21:47 AM Interpretation: Performing Lab: Notes/Report: Hemoglobin A1c 8.6 Complete Blood Count Auto Di ff Reviewed date:03/25/2024 04:33:23 PM Interpretation: Performing Lab:[facility], [address] [place] [phone] Notes/Report: White Blood Count 8.6 4.8-10.8 X10*3/uL Red Blood Count 4.89 4.60-5.80 X10*6/uL Hemoglobin 15.6 14.0-18.0 g/dl Hematocrit 46.0 42.0-52.0 % Mean Corpuscular Volume 94.1 80.0-98.0 fL Mean Corpuscular Hemoglobin 31.9 27.0-33.0 pg Mean Corpuscular HGB Conc 33.9 31.0-36.0 g/dl Red Cell Distribution Width 13.2 11.0-16.0 % Platelet Count 213 160-400 X10*3/uL Mean Platelet Volume 11.0 9.4-12.4 fL Neutrophils Percent Auto 60.1 45-73 % Imm Gran Pct Auto 0.2 0.0-0.4 % Lymphocytes Percent Auto 26.6 20-40 % Monocytes Percent Auto 11.6 2-11 % Eosinophils Percent Auto 1.2 0-4 % Basophils Percent Auto 0.3 0-2 % NRBC Pct Auto 0.0 0.0-0.2 /100WBC Neutrophils Absolute Auto 5.2 2.0-8.3 x10*3/uL Imm Gran Abs Auto 0.02 0.00-0.03 X10*3/uL Lymphocytes Absolute Auto 2.3 1.2-4.9 X10*3/uL Monocytes Absolute Auto 1.0 0.1-1.2 X10*3/uL Eosinophils Absolute Auto 0.1 0.0-0.4 X10*3/uL Basophils Absolute Auto 0.0 0.0-0.2 X10*3/uL NRBC Abs Auto 0.000 0.0-0.012 X10*3/uL Comprehensive [place]. Panel Fa st Reviewed date:03/25/2024 04:31:12 PM Interpretation: Performing Lab:[facility], [address] [place] [phone] Notes/Report: Sodium 140 135-145 mmol/L Potassium 3.9 3.3-5.1 mmol/L Chloride 106 96-108 mmol/L Carbon Dioxide 28 22-29 mmol/L Anion Gap 10 12-20 Blood Urea Nitrogen 15 9-16 mg/dL Creatinine 0.75 0.5-1.4 mg/dL Estimated Glomerular Filt Rate > 60 Chronic Kidney Disease: Estimated GFR < 60 mL/min/1.73m2 Severe Kidney Disease: Estimated GFR < 15 mL/min/1.73m2 Glucose Fasting 155 60-99 mg/dL A fasting glucose of 126 mg/dl or greater on more than one occasion is considered diagnostic of diabetes. Calcium 8.9 8.4-10.2 mg/dL Bilirubin Total 0.6 0.0-1.0 mg/dL Aspartate Amino Transferase 26 5-37 U/L Alanine Aminotransferase 37 0-40 U/L Total Protein 6.8 6.5-8.0 g/dL Albumin Level 4.0 3.5-5.0 g/dL Alkaline Phosphatase 89 39-117 U/L Lipid Panel Reviewed date:03/25/2024 04:28:45 PM Interpretation: Performing Lab:[address] [phone] Notes/Report: Triglycerides 55 <150 mg/dL Desirable Triglyceride: less than 150 mg/dL Borderline High Triglyceride 150-199 mg/dL High Triglyceride: 200-499 mg/dL Very High Triglyceride: greater than or equal to 5OO mg/dL Cholesterol 135 <200 mg/dL Desirable Cholesterol: less than 200 mg/dL Borderline High Cholesterol: 200-239 mg/dL High Cholesterol: greater than 239 mg/dL LDL Cholesterol Calculated 65 <100 mg/dL Desirable LDL: less than 100 mg/dL Near Optimal/Above Optimal LDL: 110-129 mg/dL Borderline High LDL: 130-159 mg/dL High LDL: 160-189 mg/dL Very High LDL: greater than or equal to 190 mg/dL HDL Cholesterol 59 >40 mg/dL Desirable HDL: greater than 40 mg/dL Note: This HDL assay may give artificially low results in patients with liver disease. PSA,Total (Free>4and<10) Reviewed date:03/25/2024 04:34:23 PM Interpretation: Performing Lab:[address] [address] Notes/Report: PSA,Total (Free>4and<10) 1.01 0.00-4.00 ng/mL A Free PSA was not performed: The percentage of Free PSA can be used to enhance the differentiation of prostate cancer from benign prostatic disease in subjects whose PSA levels are between 4.0 and 10.0 ng/mL. For subjects whose PSA levels are below 4.0 or above 10.0 ng/mL, the risk of prostate cancer is determined on the basis of the PSA alone. Therefore the % Free PSA is recommended only for those subjects whose PSA levels are between 4.0 and 10.0 ng/mL. PSA methodology: Hamilton Alinity i Chemiluminescent Microparticle Immunoassay (CMIA) Microalbumin, Random Reviewed date:03/25/2024 04:29:15 PM Interpretation: Performing Lab:[address] [address] Notes/Report: Creatinine Urine 109.36 Microalbumin Urine 447.0 Microalbum/Creatinine Ratio Ur 408.7 <30 ug/mg cr Albumin/Creatinine Ratio Reference Ranges: Normal: < 30 ug/mg creatinine Microalbuminuria: 30 - 300 ug/mg creatinine Clinical Albuminuria: > 300 ug/mg creatinine Hemoglobin A1c Reviewed date:03/25/2024 04:33:34 PM Interpretation: Performing Lab:[address] [address] Notes/Report: Hemoglobin A1c % 8.2 <6.0 % Hemoglobin A1C Reference Range Adults: 4.8 - 6.0 % Non diabetic: < 6.0 % Goal: < 7.0 % Additional Action Suggested: > 8.0 % Note: Hemoglobin A1c results are invalid for patients with abnormal amounts of HbF. Blood transfusions may impact the HbA1c concentration in the patient sample. Estimated Average Glucose 189 eAG = Estimated average glucose which is %A1C expressed as average glucose, using the formula of the G7Z-Lpitgkm Average Glucose study (ADAG), Diabetes Care, Vol.31,#8, Nov. 2007 UA ClnCatch+Micro w/rflx Cul t Reviewed date:03/25/2024 04:35:01 PM Interpretation: Performing Lab:[address] [address] Notes/Report: Urine, Clean Catch Color Urine Yellow Appearance Urine Cloudy PH 6.5 5.0-9.0 Glucose Urine UA Negative Negative mg/dL Urine Blood Negative Negative Specific Jewett - Urine 1.025 1.005-1.025 Urine Protein 100 (2+) Neg-Trace mg/dL Urine Ketones Negative Negative mg/dL Nitrite Urine Negative Negative Leukocyte Esterase Urine Small (1+) Negative RBC Urine 0-2 0-2 /HPF WBC Urine 21-50 0-5 /HPF Squamous Epithelial Cell Urine 0-2 0-2 /HPF Bacteria Urine None Seen None Seen Hyaline Casts Urine 0-2 0-2 /LPF Liver Panel Reviewed date:09/23/2024 04:37:47 PM Interpretation: Performing Lab:[address] [address] Notes/Report: Bilirubin Total 0.5 0.0-1.0 mg/dL Bilirubin Direct 0.2 0.0-0.5 mg/dL Aspartate Amino Transferase 27 5-37 U/L Alanine Aminotransferase 21 0-40 U/L Total Protein 6.7 6.5-8.0 g/dL Albumin Level 4.1 3.5-5.0 g/dL Alkaline Phosphatase 92 39-117 U/L Lipid Panel with Reflex Reviewed date:09/23/2024 04:36:03 PM Interpretation: Performing Lab:[facility], [address] [place] [phone] Notes/Report: Triglycerides 53 <150 mg/dL Desirable Triglyceride: [...] low results in patients with liver disease. Occult Blood, Stool, Guaiac Reviewed date:04/01/2024 11:56:22 AM Interpretation:Negative Performing Lab: Notes/Report: Negative Occult Blood, Stool, Guaiac Neg Glucose, finger stick Reviewed date:06/30/2024 09:56:15 AM Interpretation: Performing Lab: Notes/Report: Value 175 Glucose, finger stick Reviewed date:09/30/2024 10:17:34 AM Interpretation: Performing Lab: Notes/Report: Value 365 Glucose, finger stick Reviewed date:10/27/2024 01:41:55 PM Interpretation: Performing Lab: Notes/Report: Value 325 CT chest wo con Reviewed date:03/06/2024 02:49:32 PM Interpretation: Performing Lab: Notes/Report: [address] [address] [address] Scan Report Signed Patient: Franky Wade MR#: [id number] 904 : 1950 Acct:[id number] Age/Sex: 73 / M ADM Date: 01/01/24 Loc: HO.CT Attending Dr: Jensen Mark MD Ordering Physician: Jensen Mark MD Date of Service: 01/01/24 Procedure(s): CT chest wo IV con Accession Number(s): [id number] cc: Jensen Mark MD EXAMINATION: CT CHEST [...] Maico Reid MD 03/04/2024 12:34 PM EST Dictated By: Maico Castle MD Signed By: <Electronically signed by Maico Hampton MD in OV> 03/04/24 1234 DD/ 1410 TD/TT: 01/01/24 1435 Edger Feeder: [place] [address] [address] Scan Report Signed Patient: Margot Wade P MR#: [id number] 904 : 1950 Acct:[id number] Age/Sex: 73 / M ADM Date: 01/01/24 Loc: HO.CT Attending Dr: Jensen Mark MD Ordering Physician: Jensen Mark MD Date of Service: 01/01/24 Procedure(s): CT sally st wo IV con Accession Number(s): [id number] cc: Jensen Mark MD EXAMINATION: CT CHEST WITHOUT CONTRAST CLINICAL INFORMATION: Lung nodule. COMPARISON: CT chest dated December 11, 2022 TECHNIQUE: Multidetector volumetric CT imaging of the chest was done. Axial MIP volume rendering provided. Sagittal and coronal reformatted images were obtained. This CT examination was performed using dose optimization techniques as appropriate, various ly including the following: *Automated exposure control *Adjustment [...] No bronchiectasis. No gross honeycombing. Subtle pulmonary api tadeo lung scarring. Respiratory airways is grossly patent. No lymphadenopathy, mediastinum. Nonspecific mildly prominent axillary lymph nodes. There is no enlargem ent of the thyroid gland. Calcified plaques throughout [...] wo IV con IMPRESSION: 1.5 mm granuloma, ri ght upper lobe. No acute airspace disease. Coronary artery dise ase and atherosclerosis disease. 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 Fleischner guideline s were followed. Electronically nilam d by: Maico Reid MD 03/04/2024 12:34 PM EST RP Dictated By: Maico Foote MD Signed By: <Electronically signed by Maico Hampton MD in OV> 03/04/24 1234 DD/ 1410 TD/TT: 01/01/24 1435 Edger Feeder: Urine Culture Reviewed date:03/26/2024 04:04:43 PM Interpretation: Performing Lab:[address] [address] Notes/Report: Urine Culture No growth. Jasper Mercedes Reviewed date:09/23/2024 04:33:10 PM Interpretation: Performing Lab:[address] [address] Notes/Report: Jasper Mercedes See Note Specimen held untested for 24 hours; Call to request Chemistry testing. PA cardiolite stress test Reviewed date:11/25/2024 02:55:27 PM Interpretation: Performing Lab: Notes/Report: [address] [address] Nuclear Medicine Report Signed Patient: Franky Wade MR#: [id number] 904 : 1950 Acct:[id number] Age/Sex: 74 / M ADM Date: 11/22/24 Loc: HO.CARD Attending Dr: Mahendra Nj MD Ordering Physician: Mahendra Nj MD Date of Service: 11/22/24 Procedure(s): PA cardiolite stress test Accession Number(s): [id number] cc: Jensen Mark MD; Mahendra Nj MD Lexiscan Myocardial perfusion study Indication: Atherosclerotic heart disease to evaluate for myocardial ischemia Technique: The patient was brought in for a Lexiscan perfusion study on 11/22/2024 and was injected 0.4 mg of Lexiscan intravenously. Within a minute of this injection 25 mCi of sestamibi was given intravenously. Images were obtained using the SPECT gamma camera interlaced with the gating device. Images were obtained in supine position. Resting perfusion study was performed on 11/23/2024. Patient was administered 25 mCi of sestamibi intravenously at rest. Images were then obtained in supine position. Images obtained without without CT attenuation. Total DLP 67 mGy-cm. Images were processed with the software and compared side to side in short axis, horizontal long axis and vertical long axis views. Findings: The stress perfusion study showed nonattenuated images show severely reduced uptake in the inferior, inferoseptal as well as mildly reduced uptake in the septum of the LV myocardium. Attenuated corrected images show moderately reduced uptake in the inferior as well as inferoseptal wall of the LV myocardium as well as moderately reduced uptake in the apex of the LV myocardium.. The gated study shows normal LV systolic function with calculated LVEF of 51%. LV cavity is mildly to moderately in size. The gated study shows mild reduction in wall thickening and contraction of inferior and inferoseptal segments. Resting study shows nonattenuated images shows improved uptake in the inferior and inferoseptal wall of the LV myocardium as well as the apex.. Gating at rest reveals normal systolic wall motion with ejection fraction at 70%. The findings are consistent with large area of severe ischemia of the inferior, inferoseptal and apical wall suggestive of ischemia in RCA territory. NM/NM cardiolite stress test Impression: 1. Myocardial perfusion imaging study shows large area of severe ischemia in RCA territory 2. Gated LVEF is 51% with stress and 70% with rest 3. Transient ischemic dilatation present Nondiagnostic changes on EKG. Electronically signed by: Quentin Poe MD 11/23/2024 04:55 PM EDT Dictated By: Quentin Poe MD Signed By: <Electronically signed by Quentin Poe MD in OV> 11/23/24 1655 DD/ 0801 TD/TT: 11/23/24 3514 Edger Feeder: [place] [address] Nuclear Medicine Report Signed Patient: Margot Wade P MR#: [id number] 904 : 1950 Acct:[id number] Age/Sex: 74 / M ADM Date: 11/22/24 Loc: .[facility] Attending Dr: Kylee Nj MD Ordering Physician: Mahendra Nj MD Date of Service: 11/22/24 Procedure(s): NM cardiolite stress test Accession Number(s): [id number] cc: Jensen Mark MD; Mahendra Nj MD Lexiscan Myocardial perfusion study Indication: Atherosclerotic hear t disease to evaluate for myocardial ischemia Technique: The patient was brou ght in for a Lexiscan perfusion study on 11/22/2024 and was injected 0.4 mg of Lexiscan intravenously. Within a minute of this injection 25 mC i of sestamibi was given intravenously. Images were obtained using the SPECT gamma camera interlaced with the gating device. Images were obtained in supine position. Resting perfusion st udy was performed on 11/23/2024. Patient was administered 25 mCi of sestamibi intravenously at rest. Images were then obtained in sup ine position. Images obtained with out without CT attenuation. Total DLP 67 mGy-cm. Images were processe d with the software and compared side to side in short axis, horizont al long axis and vertical long axis views. Findings: The stress perfusion study showed nonattenuated images show severely reduced uptake in th e inferior, inferoseptal as well as mildly reduced uptake in the septum of the LV myocardium. Attenuated corrected images show moderately redu bar uptake in the inferior as well as inferoseptal wall of the LV myocardium as well as moderately reduced uptake in the apex of the LV myocardium.. The gated study shows normal LV systolic function with calculated LVEF of 51%. LV cavity is mildly to moderately in size. The gated study shows mild reduction in wall thickening and contraction of infer ior and inferoseptal segments. Resting study shows nonattenuated images shows improved uptake in the inferior and inferoseptal wall of the LV myocardium as well as the apex.. Gating at res t reveals normal systolic wall motion with ejection fraction at 70%. The findings are consistent with large area of severe ischemia of the inferior, inferosept al and apical wall suggestive of ischemia in RCA territory. NM/NM cardiolite stress test Impression: 1. Myocardial perfus ion imaging study shows large area of severe ischemia in RCA territory 2. Gated LVEF is 51% with stress and 70% with rest 3. Transient ischemi c dilatation present Nondiagnostic change s on EKG. Electronically nilam d by: Quentin Poe MD 11/23/2024 04:55 PM EDT RP Dictated By: Quentin Poe MD Signed By: <Electronically signed by Quentin Poe MD in OV> 11/23/24 1655 DD/ 0801 TD/TT: 11/23/24 1345 Edger Feeder: Reason For Referral Reason ABNORMAL CT SCAN Diagnosis [address] scan, ch est (R93.89) Referral Organization Jensen Mark MD Referring Provider First Name Jensen Referring Provider Last Name Jas Referring Provider Speciality Internal M edicine Referred Provider [place] Referred Provider Specialty Cardiology General Notes Cyndee Balderas 06/30/2024 10:44:59 AM >FAX REFERRAL TO [facility] FOR NEW PATIENT APPT, Cyndee Balderas 08/08/2024 12:00:49 PM >NOT BOOKED YET, HE WILL BE BOOKED URGENTLY AND JULIENNE WILL CALL US, Cyndee Balderas 09/12/2024 02:06:25 PM >per julienne , patient still on cancellation list , should be booked soon, Cyndee Balderas 09/30/2024 10:04:21 AM >OFFICE NOTE RECD Referral Priority Routine Referral Appointment Date 09/29/2024 Medications Medication SIG (Take, Route, Frequency, Duration) Notes Start Date End Date Status Cyclobenzaprine HCl 5 MG 1 tablet as nee ded Orally Three times a day for 10 days 05/31/2019 Not-Taking Lantus SoloStar 100 UNIT/ML as directed 14 units Subcutaneous daily 09/30/2024 Active Atorvastatin Calcium 80 MG TAKE 1 TABLET BY MOUTH EVERY DAY Active Escitalopram Oxalate 20 MG TAKE 1 TABLET BY MOUTH EVERY DAY for 90 Active Budesonide 3 MG 2 capsules Orally On ce a day for 30 day(s) Active Viagra 100 MG 1 tablet as needed Orally Once a day for 30 day(s) 11/13/2017 Not-Taking Tamsulosin HCl 0.4 MG TAKE ONE CAPSULE B Y MOUTH TWICE A DAY ORALLY TWICE A DAY 90 DAYS Active Flonase Allergy Relief 50 MCG/ACT 1 spray in each nostril Nasally Once a day for 30 day(s) 12/13/2018 Not-Taking Ibuprofen 800 MG 1 tablet Orally as needed for 30 Not-Taking Gabapentin 300 MG 1 capsule Orally Onc e a day for 30 days 09/30/2024 Active Cyclobenzaprine HCl 5 MG 1 tablet Orally 2 times a day for 30 days Not-Taking Chantix Starting Month Maverick 0.5 MG X 11 & 1 MG X 42 as directed Orally one tab twice a day for 30 days 05/20/2019 Not-Taking Chantix Continuing Month Maverick 1 MG as directed Orally twice a day for 30 days 05/20/2019 Not-Taking metFORMIN HCl 1000 MG TAKE ONE TABLET BY MOUTH TWICE A DAY WITH MEALS for 90 Active Irbesartan 150 MG TAKE 1 TABLET BY TAY TH EVERY DAY for 90 Active Immunizations Vaccine Route Administration Date Status [...] e vaccine at [facility] on [facility] PPSV23 (Pnemovax) Unknown 02/21/2020 Administered Covid Vaccine Unknown 07/06/2020 Administered Pfizer Covid Vaccine Unknown 07/27/2020 Administered Pfizer Influenza High Dose Unknown 02/03/2021 Administered SARS-COV-2 Pfizer Unknown 01/25/2021 Administered Fluarix Quadrivalent IM Intramuscular 03/11/2022 Administered Prevnar 13 Unknown 09/11/2014 Refused Prevnar 13 Unknown 09/23/2016 Refused Shingrix Unknown 11/13/2017 Refused Social History Tobacco Use: Social History [...] to priscilla t Additional Findings: Tobacco User Kane t cigarette smoker, not currently using another form of tobacco Alcohol Screen Question Answer Notes Did you have a drink containing alcohol in the p ast year? No Points 0 Interpretation Negative Problems Problem Type SNOMED Code ICD Code Onset Dates Problem Status W/U Status Risk Notes Problem Neuropathy (386692213) Neuropathy (G62.9) Active confirmed Problem 62519694 Dysthymic disord er (F34.1) Active confirmed Problem 41282527 Prostatism (N40.0) Active confirmed Problem 412909995 Lung nodule seen on imaging study (R91.1) Active confirmed Problem 5223061 Panlobular emphy sema (J43.1) Active confirmed Problem 081867531 Lumbar disc dise ase (M51.9) Active confirmed Problem 09561603 Essential hypertension (I10) Active confirmed Problem 02276620 Type 2 diabetes mellitus without complication (E11.9) Active confirmed Problem Diabetic peripheral neuropathy associated with type 2 diabetes mellitus (3443890473303) 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) Active confirmed Problem 198543655 Lung nodule (R91.1) Active confirmed Problem 33225761 Type 2 diabetes, controlled, with neuropathy (E11.40) Active confirmed Problem 63986589 Current smoker (F17.200) Active confirmed Problem 020833404 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) Active confirmed Problem 658944427 Vasculogenic ere ctile dysfunction, unspecified vasculogenic erectile dysfunction type (N52.9) Active confirmed Problem 63579168 Abdominal aortic aneurysm (AAA) without rupture (I71.4) Active confirmed Problem 8822311768 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) Active confirmed Problem 266307969 Pure hypercholesterolemia (E78.00) Active confirmed Problem Hypercholesterolemia (80417781) Hypercholesterolemia (E78.00) Active confirmed Problem 26565803 Bilateral carpal tunnel syndrome (G56.03) Active confirmed Problem 6583861 Peyronie's disea se (N48.6) Active confirmed Problem 70021716 Aortic aneurysm without rupture, unspecified portion of aorta (I71.9) Active confirmed Problem 12758612024758704 Abnormal CT sc an, chest (R93.89) Active confirmed Problem 248087744 Lumbar disc herniation (M51.26) Active confirmed Problem 673275559 Pain, penile (N48.89) Active confirme d Problem 109497707 Microscopic coli tis, unspecified microscopic colitis type (K52.839) Active confirmed Vital Signs Blood pressure diastolic 54 mm Hg 10/27/2024 Height 69 in 10/27/2024 Blood pressure systolic 102 mm Hg 10/27/2024 Weight 159 lbs 10/27/2024 BMI 23.48 kg/m2 10/27/2024 Encounters Encounter Location Date Provider Diagnosis Jensen Mark MD [address] [place] [id number] 03/25/2024 Jensen Mark Essential hypertensi on I10 ; Type 2 diabetes mellitus without complication E11.9 ; Pure hypercholesterolemia E78.00 and Hypercholesterolemia E78.00 Jensen Mark MD [address] [place] [id number] 09/23/2024 Jensen Mark Pure hypercholestero lemia E78.00 Jensen Mark MD [address] [place] [id number] 04/01/2024 Jensen Mark Essential hypertensi on I10 ; Type 2 diabetes mellitus without complication E11.9 ; Pure hypercholesterolemia E78.00 ; Panlobular emphysema J43.1 ; Prostatism N40.0 ; Dysthymic disorder F34.1 ; Colon cancer screening Z12.11 ; Depression screening Z13.31 and Abdominal aortic aneurysm (AAA), unspecified part, unspecified whether ruptured I71.40 Jensen Mark MD [address] [place] [id number] 06/30/2024 Jensen Mark Type 2 diabetes hi itus without complication E11.9 ; Abnormal CT scan, chest R93.89 ; Current smoker F17.200 and Lymphocytic colitis K52.832 Jensen Mark MD [address] [place] [id number] 09/30/2024 Jensen Mark Type 2 diabetes hi itus without complication E11.9 ; Neuropathy G62.9 ; Essential hypertension I10 and Pure hypercholesterolemia E78.00 Jensen Mark MD [address] [place] [address] [id number] 10/27/2024 Jensen Mark Type 2 diabetes hi itus without complication E11.9 Jensen Mark MD [address] [id number] 04/01/2024 Jensen Mark MD [address] [facility] [place] [id number] 10/04/2024 Jensen Mark Assessments Encounter Date Diagnosis (ICD Code) Assessment Notes Treatment Notes Treatment Clinical Notes Section Notes 03/25/2024 Essential hypertensi on (ICD-10 - I10) 03/25/2024 Type 2 diabetes mellitus without complication (ICD-10 - E11.9) 09/23/2024 Pure hypercholesterolemia (ICD-10 - E78.00) 04/01/2024 Essential hypertensi on (ICD-10 - I10) well controlled, will continue current regiment 04/01/2024 Type 2 diabetes mellitus without complication (ICD-10 - E11.9) running a little high, will continue current regiment and will continue to monitor 06/30/2024 Type 2 diabetes mellitus without complication (ICD-10 - E11.9) patient verbalized understanding of medication and directions for use 09/30/2024 Type 2 diabetes mellitus without complication (ICD-10 - E11.9) sugar high today but had just eaten a bagel., patient verbalized understanding of medication and directions for use 09/30/2024 Neuropathy (ICD-10 - G62.9) patient verbalized understanding of medication and directins for use 10/27/2024 Type 2 diabetes mellitus without complication (ICD-10 - E11.9) 03/25/2024 Pure hypercholesterolemia (ICD-10 - E78.00) 04/01/2024 Pure hypercholesterolemia (ICD-10 - E78.00) doing well , will continue current regiment 06/30/[address] scan, ch est (ICD-10 - R93.89) referral to cardiology/ REFFERRAL TO [facility] 09/30/2024 Essential hypertensi on (ICD-10 - I10) stable, will continue current regiment 03/25/2024 Hypercholesterolemia (ICD-10 - E78.00) 04/01/2024 Panlobular emphysema (ICD-10 - J43.1) getting yearly screening 06/30/2024 Current smoker (ICD- 10 - F17.200) not wanting to stop 09/30/2024 Pure hypercholesterolemia (ICD-10 - E78.00) stable, will continue current regiment 06/30/2024 Lymphocytic colitis (ICD-10 - K52.832) doing well on bidesinide, will continue current regiment 04/01/2024 Prostatism (ICD-10 - N40.0) stable, will [...] 3 with no aneurism Plan Of Treatment Pending Test Test Name Order Date Electrocardiogram (EKG) 09/02/2013 MRI LUMBAR SPINE NO CONTRAST 09/17/2015 US ABD AORTA 03/14/2021 Stress Test 11/16/2018 CT chest wo con 12/18/2022 CT chest wo con 03/18/2022 CT chest wo con 11/01/2021 US abdominal aortic aneurysm 03/18/2022 US abdominal aortic aneurysm 04/18/2021 Future Test Test Name Order Date CT CHEST NO CONTRAST 11/09/2020 CT chest wo con 11/08/2021 CT chest wo con 03/18/2022 CT chest wo con 07/16/2022 Next Appt Details Provider Name:Jensen wade, 12/29/2024 10:45:00 AM, [address] [place] [address], [address], [place], [place], [phone], Provider Name:Jensen wade, 04/03/2025 07:30:00 AM, [address], [address], [place], [place], [phone], Provider Name:Jensen Summers sheri, 04/14/2025 09:30:00 AM, [address], [address], [place], [place], [phone], Insurance Providers Payer Name Payer Address Payer Phone Subscriber Number Group Number Insured Name Patient Relationship to Insured Coverage Start Date Coverage End Date MEDICARE [facility] [address] [place] [address] [id number] Franky Wade Self - patient is the insured [place] [address] [place] [phone] [id number] Franky Wade Self - patient is the insured Medical (General) History Medical History History ICD Code colonoscopy 09/2006 - repeat 10 years; colonoscopy booked w/Dr. Ramirez for 03/20/17( pt cx and has not rebooked); had negative cologuard on 05/29/19). Colonoscopy 07/07/22 pending path
--- OUTSIDE RECORDS SUMMARY | 2024-11-28 14:57 | XMS_ITS | Patient Health Record ---
Author Organization [facility] Address [address] [place] [address] Care Team Providers Care Exceptional Children Teacher Assistant Name Role Phone Jensen Mark MD Primary Care Provider Esa Cochran Unavailable [phone] Allergies No Known Allergies Reason For Referral [...] Problem Status W/U Status Risk Notes Problem 560898193 Encounter for screening for malignant neoplasm of colon (Z12.11) Active confirmed Problem 96370260 Weight loss (R63.4) Active confirmed Problem Diverticular disease of colon (499921961) Diverticulosis of large intestine without perforation or abscess without bleeding (K57.30) Active confirmed Problem 601255599 Preprocedural examination (Z01.818) Active confirmed Problem 33871942 Diarrhea, unspecified type (R19.7) Active confirmed Problem 8823387772 Lymphocytic colitis (K52.832) Active confirmed Vital Signs Temperature 97.7 degrees Fahrenheit 04/27/2024 Blood pressure diastolic 00 mm Hg 04/27/2024 Height 70 in 04/27/2024 Blood pressure systolic 000 mm Hg 04/27/2024 Weight 152 lbs 04/27/2024 BMI 21.81 kg/m2 04/27/2024 Encounters Encounter Location Date Provider Diagnosis [facility] [address] [place] [phone] 04/27/2024 Esa Ramirez Diarrhea, unspecifie d type R19.7 and Lymphocytic colitis K52.832 [facility] [address] [place] [phone] 12/31/2023 Esa Ramirez [facility] [address] [place] [phone] 01/01/2024 Esa Ramirez [facility] [address] [place] [phone] 04/28/2024 Esa Ramirez Assessments Encounter Date Diagnosis (ICD Code) Assessment [...] Name:Esa Ramirez , 04/28/2025 01:00:00 PM, [address], [address], [place], [address], Insurance Providers Payer Name Payer Address Payer Phone Subscriber Number Group Number Insured Name Patient Relationship to Insured Coverage Start Date Coverage End Date MEDICARE OF [place] [address] [place] [address] [id number] FRANKY LANGSTON Self - patient is the insured MEDEX ATTN CLAIMS [address] [place] [address] [id number] FRANKY LANGSTON Self - patient is the insured Medical (General) History Medical History History ICD Code Denies DC,CVA,renal disease NIDDM-on Metformin HTN Hyperlipidemia AAA---followed by [...]
== END 2024-11-28 14:46 | disposition home or self-care (01) ==
LOC: HO.HCS 13:39
PROVIDERS: PCP Internal Medicine; Visit Provider Internal Medicine
DX: I25.10 Atherosclerotic heart disease of native coronary artery without angina pectoris (principal); E11.9 Type 2 diabetes mellitus without complications; I10 Essential (primary) hypertension; E78.5 Hyperlipidemia, unspecified; F17.200 Nicotine dependence, unspecified, uncomplicated
CPT/HCPCS: 99214; G2211

== ENCOUNTER → 2024-11-28 13:39 | Outpatient (BNVA) | payer MEDICARE, SELFPAY | PROVIDERS: PCP Internal Medicine; Visit Provider Internal Medicine | DX: I25.10 Atherosclerotic heart disease of native coronary artery without angina pectoris (principal); E11.9 Type 2 diabetes mellitus without complications; I10 Essential (primary) hypertension; E78.5 Hyperlipidemia, unspecified; F17.200 Nicotine dependence, unspecified, uncomplicated | CPT/HCPCS: 99212 ==

== ENCOUNTER 2024-12-22 08:09 | Outpatient (REF) | payer MEDICARE, SELFPAY ==
[2024-12-22 08:55] LABS: Hematocrit 46.8 % (42.0-52.0); Hemoglobin 16.1 g/dl (14.0-18.0); Mean Corpuscular HGB Conc 34.4 g/dl (31.0-36.0); Mean Corpuscular Hemoglobin 32.3 pg (27.0-33.0); Mean Corpuscular Volume 93.8 fL (80.0-98.0); NRBC Abs Auto 0.000 X10*3/uL (0.0-0.012); NRBC Pct Auto 0.0 /100WBC (0.0-0.2); Platelet Count 200 X10*3/uL (160-400); Red Blood Count 4.99 X10*6/uL (4.60-5.80); White Blood Count 6.9 X10*3/uL (4.8-10.8)
[2024-12-22 09:16] LABS: INTERNATIONAL NORM RATIO 0.9 (0.9-1.1); Prothrombin Time 10.8 SEC (10.9-12.4)
[2024-12-22 09:40] LABS: Anion Gap 11 (12-20); Blood Urea Nitrogen 15 mg/dL (9-16); Calcium 9.3 mg/dL (8.4-10.2); Carbon Dioxide 29 mmol/L (22-29); Chloride 106 mmol/L (96-108); Estimated Glomerular Filt Rate > 60; Potassium 4.8 mmol/L (3.3-5.1); Sodium 141 mmol/L (135-145)
== END 2024-12-22 08:10 | disposition home or self-care (01) ==
LOC: HO.LAB 08:09
PROVIDERS: PCP Internal Medicine; Visit Provider Internal Medicine
DX: I25.10 Atherosclerotic heart disease of native coronary artery without angina pectoris (principal)
CPT/HCPCS: 36415; 80048; 85027; 85610

== ENCOUNTER → 2025-01-12 23:59 | Outpatient (BNV) | payer MEDICARE, SELFPAY | PROVIDERS: PCP Internal Medicine; Visit Provider Internal Medicine Cardiovascular Disease | DX: I25.82 Chronic total occlusion of coronary artery (principal) | CPT/HCPCS: 93458; 99152 ==

== ENCOUNTER 2025-01-27 13:30 | Outpatient (AMB) | payer MEDICARE, SELFPAY ==
--- OUTSIDE RECORDS SUMMARY | 2024-01-13 09:20 | XMS_ITS ---
Author Organization [facility] Address [address] [place] [address] Care Team Providers Care Mounter Brass Wind Instruments Name Role Phone Jas CARTAGENA, Jensen Primary Care Provider Esa Cochran [phone] REASON FOR VISIT COLITIS Encounters Encounter Location Date Provider Diagnosis [facility] [address] [place] [address] 01/13/2024 Esa Ramirez Plan Of Treatment Next Appt Details Provider Name:Esa Ramirez , 04/28/2025 01:00:00 PM, [address], [address], [place], [address], Progress Notes * JERRY LANGSTON PDOB:[birth year] (74 yo M)Acc No.[id number]:01/13/2024 Progress Notes Patient: Laura NAIRJERRY Provider: Mini Ramirez MD :1950 A ge:73 Y S ex:Male Date:01/13/2024 Address: [address], [id number] Pcp:Jensen Mark MD Subjective: * Chief Complaints: [...] Date: 1 Generated for Mary murray/Yuliana/Gm on: 1 03:31 PM EDT
--- OUTSIDE RECORDS SUMMARY | 2024-04-01 07:00 | XMS_ITS ---
Author Organization Jensen Mark MD Address [address] [place], [place] [id number] Care Team Providers Care Certified [employer] Administrator Name Role Phone Jensen Mark Primary Care Provider [phone] Allergies No Known Allergies Results Component Value Reference Range Notes Occult Blood, Stool, Guaiac Reviewed date:04/01/2024 11:56:22 AM Interpretation:Negative Performing Lab: Notes/Report: Negative Occult Blood, Stool, Guaiac Neg REASON FOR VISIT review labs Medications Medication SIG (Take, Route, Frequency, Duration) Notes Start Date End Date Status Viagra 100 MG 1 tablet as needed Orally Once a day for 30 day(s) 11/13/2017 Not-Taking Atorvastatin Calcium 80 MG TAKE 1 TABLET BY MOUTH EVERY DAY Active Flonase Allergy Relief 50 MCG/ACT 1 spray in each nostril Nasally Once a day for 30 day(s) 12/13/2018 Not-Taking Ibuprofen 800 MG 1 tablet Orally as needed for 30 Not-Taking Cyclobenzaprine HCl 5 MG 1 tablet Orally 2 times a day for 30 days Not-Taking Chantix Continuing Month Maverick 1 MG as directed Orally twice a day for 30 days 05/20/2019 Not-Taking Chantix Starting Month Maverick 0.5 MG X 11 & 1 MG X 42 as directed Orally one tab twice a day for 30 days 05/20/2019 Not-Taking Irbesartan 150 MG TAKE 1 TABLET BY MOUTH EVERY DAY Active Budesonide 3 MG 2 capsules Orally Once a day for 30 day(s) Active Cyclobenzaprine HCl 5 MG 1 tablet as nee ded Orally Three times a day for 10 days 05/31/2019 Active Tamsulosin HCl 0.4 MG TAKE ONE CAPSULE B Y MOUTH TWICE A DAY ORALLY TWICE A DAY 90 DAYS Active metFORMIN HCl 1000 MG TAKE ONE TABLET BY MOUTH TWICE A DAY WITH MEALS ORALLY Active Escitalopram Oxalate 20 MG TAKE 1 TABLET BY MOUTH EVERY DAY Active Social History Tobacco Use: Social History Observation Description Date Details (start date - stop date) Current Smoker NA - NA Tobacco Use/Smoking Question Answer Notes Patient is [...] ast year? No Points 0 Interpretation Negative Vital Signs Blood pressure systolic 114 mm Hg 04/01/20 24 Blood pressure diastolic 56 mm Hg 024 Height 69 in 04/01/2024 Weight 156 lbs 04/01/2024 BMI 23.03 kg/m2 04/01/2024 weight is down 3 pounds [facility] e 09-29-23 Encounters Encounter Location Date Provider Diagnosis Jensen Mark MD [address] [place] [address] [place] [phone] 04/01/2024 Jensen Mark Essential hypertensi on I10 ; Type 2 diabetes mellitus without complication E11.9 ; Pure hypercholesterolemia E78.00 ; Panlobular emphysema J43.1 ; Prostatism N40.0 ; Dysthymic disorder F34.1 ; Colon cancer screening Z12.11 ; Depression screening Z13.31 and Abdominal aortic aneurysm (AAA), unspecified part, unspecified whether ruptured I71.40 Assessments Encounter Date Diagnosis (ICD Code) Assessment Notes Treatment Notes Treatment Clinical Notes Section Notes 04/01/2024 Essential hypertensi on (ICD-10 - I10) well controlled, will continue current regiment 04/01/2024 Type 2 diabetes hi itus without complication (ICD-10 - E11.9) running a little high, will continue current regiment and will continue to monitor 04/01/2024 Pure hypercholesterolemia (ICD-10 - E78.00) doing well , will continue current regiment 04/01/2024 Panlobular emphysema (ICD-10 - J43.1) getting yearly screening 04/01/2024 Prostatism (ICD-10 - N40.0) stable, will cntinue current regiment 04/01/2024 Dysthymic disorder (ICD-10 - F34.1) stable, will continue current regiment 04/01/2024 Colon cancer screeni ng (ICD-10 - Z12.11) guaiac negative 04/01/2024 Depression screening (ICD-10 - Z13.31) negative screen 04/01/2024 Abdominal aortic aneurysm (AAA), unspecified part, unspecified whether ruptured (ICD-10 - I71.40) 04/01/2024 Other repeat us times 3 with no aneurism Plan Of Treatment Medication Medication Name Sig Start Date Stop Date Notes Atorvastatin Calcium 80 MG TAKE 1 TABLET BY MOUTH EVERY DAY Irbesartan 150 MG TAKE 1 TABLET BY TAY TH EVERY DAY Tamsulosin HCl 0.4 MG TAKE ONE CAPSULE B Y MOUTH TWICE A DAY ORALLY TWICE A DAY 90 DAYS metFORMIN HCl 1000 MG TAKE ONE TABLET BY MOUTH TWICE A DAY WITH MEALS ORALLY Escitalopram Oxalate 20 MG TAKE 1 TABLET BY MOUTH EVERY DAY Treatment Notes Assessment Notes Essential hypertension well controlled, will continue current regiment Type 2 diabetes mellitus without complic ation running a little high, will continue current regiment and will continue to monitor Pure hypercholesterolemia doing well , w ill continue current regiment Panlobular emphysema getting yearly scre ening Prostatism stable, will cntinue current regiment Dysthymic disorder stable, will continu e current regiment Colon cancer screening guaiac negative Depression screening negative screen Other repeat us times 3 wi th no aneurism Next Appt Details Follow Up: 3 Months, Reason: Provider Name:Jensen wade, 02/02/2025 10:00:00 AM, [address] [place] [address], [address], [place], [place], [phone], Provider Name:Jensen wade, 04/03/2025 07:30:00 AM, [address], [address], [place], [place], [phone], Provider Name:Jensen Summers ier, 04/14/2025 09:30:00 AM, [address], [address], [place], [phone], Progress Notes * Franky WAEDDOB:1950 (74 yo M)Acc No.[id number]:04/01/2024 Patient: Franky Barrientos Provider: Chelsie Mark MD :1950 A ge:74 Y S ex:Male Date:04/01/2024 Address: [address], [place], [id number] Subjective: * Chief Complaints: * R eview labs * HPI: D epression Screening: PHQ-9 L ittle interest or pleasure in doing things N ot at all, F eeling down, depressed, or hopeless N ot at all, T rouble falling or staying asleep, or sleeping too much N ot at all, F eeling tired or having little energy N ot at all, P oor appetite or overeating N ot at all, F eeling bad about yourself or that you are a failure, or have let yourself or your family down N ot at all, T rouble concentrating on things, such as reading the newspaper or watching television N ot at all, M oving or speaking so slowly that other people could have noticed; or the opposite, being so fidgety or restless that you have been moving around a lot more than usual N ot at all, T houghts that you would be better off or of hurting yourself in some way N ot at all, T otal Score 0 . I nterpretation and Intervention D epression Screening Findings N egative, F ollow-Up for Depression : review of PHQ-9 found negative result, no follow-up needed. C ommunication Needs: Communication Needs D oes the patient have a hearing impairment N o, D oes the patient have a vision impairment? Y es, I f yes, what is the vision impairment? G lasses, D oes the patient have a cognition impairment? N o. F all Risk: History H ave you had any falls with injury in the past year? N o, H ave you had two or more falls in the past year? N o. S KACIE Questions: SDOH Questions I n the past year have you been worried about losing housing? N o, I n the past year have you or any family members you live with been unable to get any of the following when it was really needed? Check all that apply: N one. S ymptom(s): patient is a 74 yo male here for review of recent labs and follow up of chronic issues, cholitis has acted up and is back on budesinide. * ROS: G eneral/Constitutional: Patient denies f atigue , headache. C hange in appetite?denies. C hills d enies. F ever d enies. O phthalmologic: Blurred vision d enies. D ischarge d enies. P ain d enies. E NT: Patient denies d ecreased sense of smell , any loss of taste , sore throat. D ecreased hearing d enies. S ore throat d enies. S wollen glands d enies. E ndocrine: Cold intolerance d enies. E xcessive thirst d enies. H eat intolerance d enies. W eight loss d enies. R espiratory: Cough d enies. S hortness of breath at rest d enies. S hortness of breath with exertion d enies. W heezing d enies. C ardiovascular: Chest pain at rest d enies. C hest pain with exertion?denies. I rregular heartbeat d enies. S hortness of breath d enies. ? G astrointestinal: Patient complaining of d iarrhea has come back. . A bdominal pain d enies. C hange in bowel habits d enies. D iarrhea d enies.?Nausea d enies. R ectal bleeding d enies. V omiting d enies . G enitourinary: Blood in urine d enies. D ifficulty urinating d enies. F requent urination d enies. M usculoskeletal: Patient denies m uscle aches. P ainful joints d enies. W eakness d enies. P eripheral Vascular: Patient denies r ed and blue toes. S kin: Dry skin d enies. I tching d enies. D enies?Mole(s), changes in moles, new moles or any lesions of concern. D enies P hotosensitivity. R jeremiah d enies. N eurologic: Dizziness d enies. F ainting d enies. H eadache?denies. * Medical History: * Surgical History: * Hospitalization/Major Diagno stic Procedure: * Family History: F ather: 68 yrs. M other: 47 yrs, diagnosed with Cancer. 3 brother(s) , 1 sister(s) . 1 son(s) , 3 daughter(s) . . Father- Aneurysm Mother- Pancreatic cancer, Denies mental health/substance abuse family history, No pertinent family medical history, No pertinent family medical history, No pertinent family medical history. * Social History: T obacco Use: T obacco Use/Smoking P atient is a c urrent smoker, H ow often do you smoke cigarettes? e very day, H ow many cigarettes a day do you smoke? 1 1-20, H ow soon after you wake up do you smoke your first cigarette? w ithin 5 minutes, A re you interested in quitting? N ot ready to quit, A dditional Findings: Tobacco User C urrent cigarette smoker, not currently using another form of tobacco. D rugs/Alcohol: A lcohol Screen D id you have a drink containing alcohol in the past year? N o, P oints 0 , I nterpretation N egative. M iscellaneous: C affeine: yes, frequency:, 2-3 cups per day. Children: yes. Exercise: yes, walking. Home smoke detector use: yes. Housing: owning. Living with: spouse. Marital status: . Occupation: weeks/months/years, works part-time. Pets: cats: dogs:1 cat. Travel outside of the [place]: yes, [place]. * Medications: T akingBudesonide 3 MG Capsule Delayed Release Particles 2 capsules Orally Once a dayCyclobenzaprine HCl 5 MG Tablet 1 tablet as needed Orally Three times a dayAtorvastatin Calcium 80 MG Tablet TAKE 1 TABLET BY MOUTH EVERY DAY Escitalopram Oxalate 20 MG Tablet TAKE 1 TABLET BY MOUTH EVERY DAY Tamsulosin HCl 0.4 MG Capsule TAKE ONE CAPSULE BY MOUTH TWICE A DAY ORALLY TWICE A DAY 90 DAYS metFORMIN HCl 1000 MG Tablet TAKE ONE TABLET BY MOUTH TWICE A DAY WITH MEALS ORALLY Irbesartan 150 MG Tablet TAKE 1 TABLET BY MOUTH EVERY DAY Taking Budesonide 3 MG Capsule Delayed Release Particles 2 capsules Orally Once a dayTaking Cyclobenzaprine HCl 5 MG Tablet 1 tablet as needed Orally Three times a dayTaking Atorvastatin Calcium 80 MG Tablet TAKE 1 TABLET BY MOUTH EVERY DAY Taking Escitalopram Oxalate 20 MG Tablet TAKE 1 TABLET BY MOUTH EVERY DAY Taking Tamsulosin HCl 0.4 MG Capsule TAKE ONE CAPSULE BY MOUTH TWICE A DAY ORALLY TWICE A DAY 90 DAYS Taking metFORMIN HCl 1000 MG Tablet TAKE ONE TABLET BY MOUTH TWICE A DAY WITH MEALS ORALLY Taking Irbesartan 150 MG Tablet TAKE 1 TABLET BY MOUTH EVERY DAY Not-Taking/PRNChantix Starting Month Maverick 0.5 MG X 11 & 1 MG X 42 Tablet as directed Orally one tab twice a dayChantix Continuing Month Maverick 1 MG Tablet as directed Orally twice a dayViagra 100 MG Tablet 1 tablet as needed Orally Once a dayFlonase Allergy Relief 50 MCG/ACT Suspension 1 spray in each nostril Nasally Once a dayIbuprofen 800 MG Tablet 1 tablet Orally as neededCyclobenzaprine HCl 5 MG Tablet 1 tablet Orally 2 times a dayMedication List reviewed and reconciled with the patientNot-Taking/PRN Chantix Starting Month Maverick 0.5 MG X 11 & 1 MG X 42 Tablet as directed Orally one tab twice a dayNot-Taking/PRN Chantix Continuing Month Maverick 1 MG Tablet as directed Orally twice a dayNot-Taking/PRN Viagra 100 MG Tablet 1 tablet as needed Orally Once a dayNot-Taking/PRN Flonase Allergy Relief 50 MCG/ACT Suspension 1 spray in each nostril Nasally Once a dayNot-Taking/PRN Ibuprofen 800 MG Tablet 1 tablet Orally as neededNot-Taking/PRN Cyclobenzaprine HCl 5 MG Tablet 1 tablet Orally 2 times a dayMedication List reviewed and reconciled with the patient * Allergies: N .K.D.A.yes[Allergies Verified] Objective: * Vitals: H t: 69, Wt:156, BMI:23.03, BP:114/56 weight is down 3 pounds since 09-29-23. * P ast Orders: L ab:UA ClnCatch+Micro w/rflx Cult (Order Date - 03/25/2024) (Collection Date - 03/25/2024) Value Reference Range Color Urine Yellow - Appearance Urine Cloudy - PH 6.5 5.0-9.0 - Glucose Urine UA Negative Negative - mg/dL Urine Blood Negative Negative - Specific [place] - Urine 1.025 1.005-1.025 - Urine Protein 100 (2+) A Neg-Trace - mg/dL Urine Ketones Negative Negative - mg/dL Nitrite Urine Negative Negative - Leukocyte Esterase Urine Small (1+) A Negative - RBC Urine 0-2 0-2 - /HPF WBC Urine 21-50 A 0-5 - /HPF Squamous Epithelial Cell Urine 0-2 0-2 - /HP F Bacteria Urine None Seen None Seen - Hyaline Casts Urine 0-2 0-2 - /LPF L ab:Comprehensive [place]. Panel Fast (Order Date - 03/25/2024) (Collection Date - 03/25/2024) Value Reference Range Sodium 140 135-145 - mmol/L Bilirubin Total 0.6 0.0-1.0 - mg/dL Aspartate Amino Transferase 26 5-37 - U/L Alanine Aminotransferase 37 0-40 - U/L Total Protein 6.8 6.5-8.0 - g/dL Albumin Level 4.0 3.5-5.0 - g/dL Alkaline Phosphatase 89 39-117 - U/L Potassium 3.9 3.3-5.1 - mmol/L Chloride 106 96-108 - mmol/L Carbon Dioxide 28 22-29 - mmol/L Anion Gap 10 L 12-20 - Blood Urea Nitrogen 15 9-16 - mg/dL Creatinine 0.75 0.5-1.4 - mg/dL Estimated Glomerular Filt Rate > 60 - Glucose Fasting 155 H 60-99 - mg/dL Calcium 8.9 8.4-10.2 - mg/dL L ab:Urine Culture (Order Date - 03/25/2024) (Collection Date - 03/25/2024) Value Reference Range Urine Culture No growth. - L ab:Lipid Panel (Order Date - 03/25/2024) (Collection Date - 03/25/2024) Value Reference Range Triglycerides 55 <150 - mg/dL Cholesterol 135 <200 - mg/dL LDL Cholesterol Calculated 65 <100 - mg/dL HDL Cholesterol 59 >40 - mg/dL L ab:PSA,Total (Free>4and<10) (Order Date - 03/25/2024) (Collection Date - 03/25/2024) Value Reference Range PSA,Total (Free>4and<10) 1.01 0.00-4.00 - ng/ mL L ab:Microalbumin, Random (Order Date - 03/25/2024) (Collection Date - 03/25/2024) Value Reference Range Creatinine Urine 109.36 - mg/dL Microalbumin Urine 447.0 - mg/L Microalbum Creatinine Ratio Ur 408.7 H <30 - ug/ mg cr L ab:Hemoglobin A1c (Order Date - 03/25/2024) (Collection Date - 03/25/2024) Value Reference Range Hemoglobin A1c % 8.2 H <6.0 - % Estimated Average Glucose 189 - mg/dL L ab:Complete Blood Count Auto Diff (Order Date - 03/25/2024) (Collection Date - 03/25/2024) Value Reference Range White Blood Count 8.6 4.8-10.8 - X10*3/uL Red Blood Count 4.89 4.60-5.80 - X10*6/uL Hemoglobin 15.6 14.0-18.0 - g/dl Hematocrit 46.0 42.0-52.0 - % Mean Corpuscular Volume 94.1 80.0-98.0 - fL Mean Corpuscular Hemoglobin 31.9 27.0-33.0 - pg Mean Corpuscular HGB Conc 33.9 31.0-36.0 - g/ dl Red Cell Distribution Width 13.2 11.0-16.0 - % Platelet Count 213 160-400 - X10*3/uL Mean Platelet Volume 11.0 9.4-12.4 - fL Neutrophils Percent Auto 60.1 45-73 - % Imm Gran Pct Auto 0.2 0.0-0.4 - % Lymphocytes Percent Auto 26.6 20-40 - % Monocytes Percent Auto 11.6 H 2-11 - % Eosinophils Percent Auto 1.2 0-4 - % Basophils Percent Auto 0.3 0-2 - % NRBC Pct Auto 0.0 0.0-0.2 - /100WBC Neutrophils Absolute Auto 5.2 2.0-8.3 - x10* 3/uL Imm Gran Abs Auto 0.02 0.00-0.03 - X10*3/uL Lymphocytes Absolute Auto 2.3 1.2-4.9 - X10* 3/uL Monocytes Absolute Auto 1.0 0.1-1.2 - X10*3/ uL Eosinophils Absolute Auto 0.1 0.0-0.4 - X10* 3/uL Basophils Absolute Auto 0.0 0.0-0.2 - X10*3/ uL NRBC Abs Auto 0.000 0.0-0.012 - X10*3/uL * Examination: G eneral Examination: GENERAL APPEARANCE: w ell developed, well nourished, in no acute distress. HEAD: n ormocephalic, atraumatic. EYES: p upils equal, round, reactive to light and accommodation, sclera non-icteric. EARS: n ormal. ORAL CAVITY: m ucosa moist. THROAT: c lear. NECK/THYROID: n johnnie supple, full range of motion, no cervical lymphadenopathy, no bruits. SKIN: w arm and dry, no suspicious lesions. HEART: r egular rate and rhythm, S1, S2 normal, no murmurs.? LUNGS: c lear to auscultation bilaterally. ABDOMEN: s oft, nontender, nondistended, bowel sounds present, normal, no organomegaly , no masses palpable. RECTAL EXAM: n ormal tone, no external hemorrhoids, no masses palpable, prostate normal, stool guaiac negative. MALE GENITOURINARY: c ircumcised , no penile lesions or discharge , no testicular mass , testes descended bilaterally. EXTREMITIES: n o clubbing, cyanosis, or edema. NEUROLOGIC: n onfocal, motor strength normal upper and lower extremities, sensory exam intact. PODIATRIC: d iminished pulses and pinprick. FOOT EXAM: . Assessment: * Assessment: 1. E ssential hypertension - I10 (Primary) 2 . T ype 2 diabetes mellitus without complication - E11.9 3 . P ure hypercholesterolemia - E78.00 4 . P anlobular emphysema - J43.1 5 . P rostatism - N40.0 6 . D ysthymic disorder - F34.1 7 . C olon cancer screening - Z12.11 8 . D epression screening - Z13.31 9 . A bdominal aortic aneurysm (AAA), unspecified part, unspecified whether ruptured - I71.40 Plan: * Treatment: 2. T ype 2 diabetes mellitus without complication Notes: running a little high, will continue current regiment and will continue to monitor ? 3. P ure hypercholesterolemia Notes: doing well , will continue current regiment 4. P anlobular emphysema Notes: getting yearly screening 5. P rostatism Notes: stable, will cntinue current regiment 6. D ysthymic disorder Notes: stable, will continue current regiment 7. C olon cancer screening Notes: guaiac negative 8. D epression screening Notes: negative screen 9. O thers Continue Atorvastatin Calcium Tablet, 80 MG, TAKE 1 TABLET BY MOUTH EVERY DAY; C ontinue Escitalopram Oxalate Tablet, 20 MG, TAKE 1 TABLET BY MOUTH EVERY DAY; C ontinue Tamsulosin HCl Capsule, 0.4 MG, TAKE ONE CAPSULE BY MOUTH TWICE A DAY ORALLY TWICE A DAY 90 DAYS; C ontinue metFORMIN HCl Tablet, 1000 MG, TAKE ONE TABLET BY MOUTH TWICE A DAY WITH MEALS ORALLY; C ontinue Irbesartan Tablet, 150 MG, TAKE 1 TABLET BY MOUTH EVERY DAY. Notes: repeat us times 3 with no aneurism * Labs: * L ab: Occult Blood, Stool, Guaiac N egative Value Reference Range O ccult Blood, Stool, Guaiac Neg * Procedure Codes: 8 2270 TEST FOR BLOOD, [id number] Complex e/m visit add on * Preventive Medicine: Counseling: S moking P atient counseled on the dangers of tobacco use and urged to quit. 1 06/02/2023, P atient Lifestyle Goals P atient does not want to quit, T reatment Goals a dvised patient to, Cut down by 1 cigarette a week, E xpected Outcome a chieving sustained abstinence from cigarettes, significantly reducing the risk of smoking-related diseases like lung cancer, heart disease, and stroke, experiencing improved lung function, better overall health, and potentially noticing positive changes in taste and smell within a relatively short time frame after quitting, S elf-Managment Goals S uggested patient speak with family/friends about quitting and how they can help, B arriers n ot ready to quit, S et a Quit Date s uggested patient set a date in the future to stop smoking. Diabetes Care Plan: P atient Lifestyle Goals N eeds to maintain diet control.?Treatment Goals A 1C< 7. B arriers N eeds better diet control. S elf-Managment Plan I ncrease light exercise to 3 times a week for 30 minutes. E xpected Outcome m aintaining stable blood sugar levels within a target range. * Follow Up: 3 Months * * Sign off status: Completed true * Provider: Chelsie Mark MD Date: 06/02/2023 Generated for Mary murray/Yuliana/Gm on: 03:31 PM EDT History and Physical Notes * HPI (History of Present Illness) Category Sub-Category Detail Notes Category Not es Symptom(s) patient is a 74 yo male here for review of recent labs and follow up of chronic issues, cholitis has acted up and is back on budesinide Depression Screening PHQ-9 Little inte rest or pleasure in doing things: Not at all Feeling down, depressed, or hopeless: No t at all Trouble falling or staying asleep, or sl eeping too much: Not at all Feeling tired or having little energy: N ot at all Poor appetite or overeating: Not at all Feeling bad about yourself o r that you are a failure, or have let yourself or your family down: Not at all Trouble concentrating on thi ngs, such as reading the newspaper or watching television: Not at all Moving or speaking so slowly that other people could have noticed; or the opposite, being so fidgety or restless that you have been moving around a lot more than usual: Not at all Thoughts that you would be b morgan off or of hurting yourself in some way: Not at all Total Score: 0 Interpretation and Intervention Depression Stevene carolyne Findings: Negative Follow-Up for Depression: : review of PH Q-9 found negative result, no follow-up needed SDOH Questions SDOH Questions In the past year have you been worried about losing housing?: No In the past year have you or any family members you live with been unable to get any of the following when it was really needed? Check all that apply:: None Fall Risk History Have you had any falls with injury i n the past year?: No Have you had two or more falls in the year?: No Communication Needs Communication Needs Does the patient have a hearing impairment: No Does the patient have a vision impairmen t?: Yes If yes, what is the vision impairment?: Glasses Does the patient have a cognition impair ment?: No Examination Category Sub-Category Detail Notes Category Not es General Examination GENERAL APPEARANCE: well dev eloped, well nourished, in no acute distress HEAD: normocephalic, atrau matic EYES: pupils equal, round, reactive to light and accommodation, sclera non-icteric EARS: normal THROAT: clear NECK/THYROID: neck supple, full ra nge of motion, no cervical lymphadenopathy, no bruits HEART: regular rate and rhy thm, S1, S2 normal, no murmurs LUNGS: clear to auscultatio n bilaterally ABDOMEN: soft, nontender, non distended, bowel sounds present, normal, no organomegaly , no masses palpable NEUROLOGIC: nonfocal, motor stre ngth normal upper and lower extremities, sensory exam intact SKIN: warm and dry, no marce picious lesions EXTREMITIES: no clubbing, cyanosi s, or edema MALE GENITOURINARY: circumcised , no pen ile lesions or discharge , no testicular mass , testes descended bilaterally RECTAL EXAM: normal tone, no exte rnal hemorrhoids, no masses palpable, prostate normal, stool guaiac negative ORAL CAVITY: mucosa moist FOOT EXAM: Date: 04/01/2024 diminished puls es and pinprick PODIATRIC: diminished pulses an d pinprick
--- OUTSIDE RECORDS SUMMARY | 2024-04-01 07:49 | XMS_ITS ---
Author Organization Jensen Mark MD Address [address] [place] [phone] Care Team Providers Care Note Keeper Name Role Phone Jensen Mark Primary Care Provider [phone] REASON FOR VISIT US abd Encounters Encounter Location Date Provider Diagnosis Jensen Mark MD [address] [facility] [address] [place] [phone] 04/01/2024 Jensen Mark Plan Of Treatment Next Appt Details Provider Name:Jensen Summers ier, 02/02/2025 10:00:00 AM, [address] [place] [address], [address] [place] [address], [phone], Provider Name:Jensen Summers ier, 04/03/2025 07:30:00 AM, [address] [place] [address], [address] [place] [address], [phone], Provider Name:Jensen wade, 04/14/2025 09:30:00 AM, [address] [place] [address], [address] [place] [address], [phone], Progress Notes * Franky WADEDOB:1950 (74 yo M)Acc No.[id number]:04/01/2024 Patient: Franky Barrientos :1950 A ge:74 Y S ex:Male Address: [address], [place] [address] * true * Date: Generated for Mary murray/Yuliana/Yuesmitting on: 03:32 PM EDT
--- OUTSIDE RECORDS SUMMARY | 2024-06-30 06:15 | XMS_ITS ---
Author Organization Jensen Mark MD Address [address] [place], [place] [phone] Care Team Providers Care Rotary Driller Name Role Phone Jensen Mark Primary Care Provider [phone] Allergies No Known Allergies Results Component [...] Balderas 06/30/2024 10:44:59 AM >FAX REFERRAL TO [facility] FOR NEW PATIENT APPTSherrie Patti A [...] Date Provider Diagnosis Jensen Mark MD [address] [facility] [address] [place], [place] [phone] 06/30/2024 Jensen Mark Type 2 diabetes mellitus [...] - R93.89) referral to cardiology/ REFFERRAL TO [facility] 06/30/2024 Current smoker (ICD-10 - F17.200) [...] chest referral to card iology/ REFFERRAL TO [facility] Current smoker not wanting to stop Lymphocytic colitis doing well on bidesi nide, will continue current regiment Referrals Referral Date Details 06/30/2024 06/30/2024, ABNORMAL CT SCAN, [place] Next Appt Details Follow Up: 3 Months, Reason: Provider Name:Jensen wade, 02/02/2025 10:00:00 AM, [address] [place] [address], [address], [phone], Provider Name:Jensen wade, 04/03/2025 07:30:00 AM, [address] [place] [address], [address] [place] [address], [phone], Provider Name:Jensen wade, 04/14/2025 09:30:00 AM, [address] [place] [address], [address], [phone], Progress Notes * Franky WADEDOB:1950 (74 yo M)Acc No.[id number]:06/30/2024 Progress Notes Patient: Franky LAKE Provider: Chelsie Mark MD :1950 A ge:74 Y S ex:Male Date:06/30/2024 Address: [address], [place], [id number] Subjective: * Chief Complaints: * 3 month [...] chest? Notes: referral to cardiology/ REFFERRAL TO [facility]? Referral To:[facility] [place]??Cardiology ?Reason:ABNORMALCT SCAN 3.?Current smoker? Notes: not wanting to stop??4.?Lymphocytic colitis? Notes: doing well on bidesinide, will continue current regiment?? * Procedure Codes: 8 2947 ASSAY, GLUCOSE, BLOOD QUANT, Modifiers: QW 64616 GLYCATED HEMOGLOBIN TEST, Modifiers: QW * Follow Up: 3 Months * * Sign off status: Completed true * Provider: Cehlsie Mark MD Date: 0 06/30/2024 Generated for Kyliei trevor/Yuliana/eTransmitting on: 1 03:31 PM EDT History and Physical Notes [...]
--- OUTSIDE RECORDS SUMMARY | 2024-09-23 03:15 | XMS_ITS ---
Author Organization Jensen Mark MD Address [address] [place], [place] [phone] Care Team Providers Care Inventory Representative Name Role Phone Jensen Mark Primary Care Provider Results Component Value Reference Range Notes Liver Panel Reviewed date:09/23/2024 04:37:47 PM Interpretation: Performing Lab:[facility], [address] [place] [phone] Notes/Report: Bilirubin Total 0.5 0.0-1.0 mg/dL Bilirubin Direct 0.2 0.0-0.5 mg/dL Aspartate Amino Transferase 27 5-37 U/L Alanine Aminotransferase 21 0-40 U/L Total Protein 6.7 6.5-8.0 g/dL Albumin Level 4.1 3.5-5.0 g/dL Alkaline Phosphatase 92 39-117 U/L Lipid Panel with Reflex Reviewed date:09/23/2024 04:36:03 PM Interpretation: Performing Lab:[facility], [address] [place] [phone] Notes/Report: Triglycerides 53 <150 mg/dL Desirable Triglyceride: [...] Location Date Provider Diagnosis Jensen Mark MD [address] [place] [address] [place] [phone] 09/23/2024 Jensen Mark Pure hypercholestero lemia E78.00 Assessments Encounter Date Diagnosis (ICD Code) Assessment Notes Treatment Notes Treatment Clinical Notes Section Notes 09/23/2024 Pure hypercholesterolemia (ICD-10 - E78.00) Plan Of Treatment Next Appt Details Provider Name:Jensen wade, 02/02/2025 10:00:00 AM, [address] [place] [address], [address], [phone], Provider Name:Jensen wade, 04/03/2025 07:30:00 AM, [address] [place] [address], [address], [phone], Provider Name:Jensen wade, 04/14/2025 09:30:00 AM, [address] [place] [address], [address], [phone], Progress Notes * Franky WADEDOB:1950 (74 yo M)Acc No.[id number]:09/23/2024 Progress Note Patient: Franky LAKE Provider: Chelsie Mark MD :1950 A ge:74 Y S ex:Male Date:09/23/2024 Address: [address], [id number] Subjective: * Chief Complaints: * 1 . [...] 0 09/23/2024 Generated for Mary murray/Yuliana/Gm on: 03:32 PM EDT
--- OUTSIDE RECORDS SUMMARY | 2024-09-30 06:15 | XMS_ITS ---
Author Organization Jensen Mark MD Address [address] [place], [place] [phone] Care Team Providers Care Cataract Lens Generator Name Role Phone Jensen Mark Primary Care Provider [phone] Allergies No Known Allergies Results Component Value [...] Status W/U Status Risk Notes Problem Neuropathy ([id number]) Neuropathy (G62.9) Active confirmed Vital Signs Blood pressure systolic 104 mm Hg 10/01/19 25 Blood pressure diastolic 56 mm Hg 025 Height 69 in 09/30/2024 Weight 159 lbs 09/30/2024 BMI 23.48 kg/m2 09/30/2024 weight is up 4 pounds since 06-30-24 Encounters Encounter Location Date Provider Diagnosis Jensen Mark MD [address] [place] [address] [place] [phone] 09/30/2024 Jensen Mark Type 2 diabetes hi [...] Follow Up: 4 Weeks, Reason: Provider Name:Jensen wade, 02/02/2025 10:00:00 AM, [address] [place] [address], [address], [phone], Provider Name:Jensen wade, 04/03/2025 07:30:00 AM, [address] [place] [address], [address], [phone], Provider Name:Jensen wade, 04/14/2025 09:30:00 AM, [address] [place] [address], [address], [phone], Progress Notes * Franky WADEDOB:1950 (74 yo M)Acc No.[id number]:09/30/2024 Progress Notes Patient: Franky LAKE Provider: Chelsie Mark MD :1950 A ge:74 Y S ex:Male Date:09/30/2024 Address:[address], [id number] Subjective: * Chief Complaints: * 6 month [...] enies F requent urination. R espiratory: Denies C ough. D enies S hortness of breath at rest. D enies S hortness of breath with exertion. G astrointestinal: Denies D iarrhea. D enies N ausea. h aving [...] 2947 ASSAY, GLUCOSE, BLOOD QUANT, Modifiers: QW 29187 GLYCATED HEMOGLOBIN TEST, Modifiers: QW * Follow Up: 4 Weeks * * Sign off status: Completed true * Provider: Chelsie Mark MD Date: 0 09/30/2024 Generated for Mary murray/Yuliana/Gm on: 1 03:31 PM EDT History and [...]
--- OUTSIDE RECORDS SUMMARY | 2024-10-03 12:15 | XMS_ITS ---
Author Organization Jensen Mark MD Address [address] [place] [phone] Care Team Providers Care Election Watcher Name Role Phone Jensen Mark Primary Care Provider [phone] Allergies No Known Allergies REASON FOR VISIT 3 MO F/U Encounters Encounter Location Date Provider Diagnosis Jensen Mark MD 10 [facility] [address] [place] [phone] 10/03/2024 Jensen Mark Plan Of Treatment Next Appt Details Provider Name:Jensen Summers ier, 02/02/2025 10:00:00 AM, [address] [place] [address], [address] [place] [address], [phone], Provider Name:Jensen Summers ier, 04/03/2025 07:30:00 AM, [address] [place] [address], [address] [place] [address], [phone], Provider Name:Jensen Summers iejohanna, 04/14/2025 09:30:00 AM, [address] [place] [address], [address] [place] [address], [phone], Progress Notes * Franky WADEDOB:1950 (74 yo M)Acc No.[id number]:10/03/2024 Progress Notes Patient: Franky LAKE Provider: Chelsie Mark MD :1950 A ge:74 Y S ex:Male Date:10/03/2024 Address: [address], [place], [id number] Subjective: * Chief Complaints: * 1 . [...] 0 10/03/2024 Generated for Printi ng/Yuliana/Baldomeroitting on: 1 03:30 PM EDT
--- OUTSIDE RECORDS SUMMARY | 2024-10-04 07:40 | XMS_ITS ---
Author Organization Jensen Mark MD Address [address] [place] [phone] Care Team Providers Care Machine Iii Coremaker Name Role Phone Jensen Mark Primary Care Provider [phone] REASON FOR VISIT lantus Encounters Encounter Location Date Provider Diagnosis Jensen Mark MD 10 [facility] [address] [place] [phone] 10/04/2024 Jensen Mark Plan Of Treatment Next Appt Details Provider Name:Jensen Summers ier, 02/02/2025 10:00:00 AM, [address] [place] [address], [address] [place] [address], [phone], Provider Name:Jensen Summers ier, 04/03/2025 07:30:00 AM, [address] [place] [address], [address] [place] [address], [phone], Provider Name:Jensen Summers iejohanna, 04/14/2025 09:30:00 AM, [address] [place] [address], [address] [place] [address], [phone], Progress Notes * Franky WADEDOB:1950 (74 yo M)Acc No.[id number]:10/04/2024 Patient: Franky LAKE :1950 A ge:74 Y S ex:Male Address: [address], [place] [address] * true * Date: Generated for Mary murray/Yulaina/Paulransmitting on: 03:30 PM EDT
--- OUTSIDE RECORDS SUMMARY | 2024-10-27 09:45 | XMS_ITS ---
Author Organization Jensen Mark MD Address [address] [place], [place] [phone] Care Team Providers Care Tomography Technologist Name Role Phone Jensen Mark Primary Care Provider [phone] Allergies No Known Allergies Results Component Value [...] Location Date Provider Diagnosis Jensen Mark MD [address] [place] [address] [phone] 10/27/2024 Jensen Mark Type 2 diabetes mellitus [...] Follow Up: 2 Months, Reason: Provider Name:Jensen wade, 02/02/2025 10:00:00 AM, [address] [place] [address], [address], [phone], Provider Name:Jensen wade, 04/03/2025 07:30:00 AM, [address] [place] [address], [place] [address], [place], [place], [phone], Provider Name:Jensen wade, 04/14/2025 09:30:00 AM, [address] [place] [address], [address], [phone], Progress Notes * Franky WADEDOB:1950 (74 yo M)Acc No.[id number]:10/27/2024 Progress Notes Patient: Franky LAKE Provider: Chelsie Mark MD :1950 A ge:74 Y S ex:Male Date:10/27/2024 Address: [address], [place], [id number] Subjective: * Chief Complaints: * 4 WK [...] MD Date: 0 10/27/2024 Generated for Mary ng/Debig/eTransmitting on: 1 03:30 PM EDT History and Physical Notes * [...]
--- OUTSIDE RECORDS SUMMARY | 2024-12-29 06:45 | XMS_ITS ---
Author Organization Jensen Mark MD Address [address] [place], [place] [phone] Care Team Providers Care Rail Maintenance Worker Name Role Phone Jensen Mark Primary Care Provider [phone] Allergies No Known Allergies Results Component Value [...] Date Provider Diagnosis Jensen Mark MD [address] [place], [place] [phone] 12/29/2024 Jensen Mark Type 2 diabetes mellitus [...] 4 Weeks, Reason: Provider Name:Jensen Summers ier, 02/02/2025 10:00:00 AM, [address], [address], [place], [phone], Provider Name:Jensen Summers ier, 04/03/2025 07:30:00 AM, [address], [address], [place], [phone], Provider Name:Jensen Summers ier, 04/14/2025 09:30:00 AM, [address], [address], [place], [phone], Progress Notes * IVIS FrankyDOB:1950 (74 yo M)Acc No.[id number]:12/29/2024 Progress Notes Patient: Franky LAKE Provider: Chelsie Mark MD :1950 A ge:74 Y S ex:Male Date:12/29/2024 Address: [address], [place], [id number] Subjective: * Chief Complaints: * 2 MO [...] 2947 ASSAY, GLUCOSE, BLOOD QUANT, Modifiers: QW 23798 GLYCATED HEMOGLOBIN TEST, Modifiers: QW G2211 Complex e/m visit add on * Follow Up: 4 Weeks * * Sign off status: Completed true * Provider: Chelsie Mark MD Date: 0 12/29/2024 Generated for Kyliei ng/Yuliana/eTransmitting on: 1 03:31 PM EDT History and [...]
--- OUTSIDE RECORDS SUMMARY | 2025-01-02 05:30 | XMS_ITS ---
Author Organization Jensen Mark MD Address [address] [place], [place] [phone] Care Team Providers Care Control Panel Tester Name Role Phone Jensen Mark Primary Care Provider REASON FOR VISIT refill Lantus Medications Medication SIG (Take, Route, Frequency, Duration) Notes Start Date End Date Status Lantus SoloStar 100 UNIT/ML as directed 14 units Subcutaneous daily for 90 days 09/30/2024 Active Encounters Encounter Location Date Provider Diagnosis Jensen Mark MD [address] [place] [phone] 01/02/2025 Jensen Mark Type 2 diabetes mellitus [...] 09/30/2024 Next Appt Details Provider Name:Jensen wade, 02/02/2025 10:00:00 AM, [address], [address] [facility], [place], [place], [phone], Provider Name:Jensen wade, 04/03/2025 07:30:00 AM, [address], [address], [place], [phone], Provider Name:Jensen Summers ier, 04/14/2025 09:30:00 AM, [address], [address], [place], [place], [phone], Progress Notes * Franky WADEDOB:1950 (74 yo M)Acc No.[id number]:01/02/2025 Patient: Franky LAKE :1950 A ge:74 Y S ex:Male Address: [address], [place] [address] * Refills Refill Lantus SoloStar Solution Pen-injector, 100 UNIT/ML, Subcutaneous, 20, as directed 14 units, daily, 90 days * true * Date: Generated for Mary murray/Yuliana/eTransmitting on: 1 03:30 PM EDT
--- NOTE | 2025-01-27 13:42 | A.OFFVIS_ITS ---
Vital Signs 01/27/25 13:43 Height 5 ft 9 in Weight 163 lb 2.273 oz BMI 24.1 BP 114/58 L Blood Pressure Location Lt brachial Position Sitting Pulse 67 Pulse Source Pulse Oximeter Intake Visit Reasons: Follow up post cardiac cath Material Control Supervisor Required: No Accompanied by: Self / Same As Patient Allergies No Known Allergies Allergy (Verified 01/27/25 13:45) HPI Comments Details: This is a 74-year-old male patient coming in for a follow-up visit status post cardiac catheterization on 01/12/2025. Patient with a history of hypertension, hyperlipidemia, diabetes, COPD and smoker who was previously seen in the office for coronary disease on the chest CT. Following this patient underwent a stress test that was abnormal and therefore was sent for cardiac catheterization. Today, patient is reporting chronic shortness of breath with exertion otherwise denies any exertional chest pain, palpitations, dizziness, orthopnea, PND, leg edema, presyncope or syncope. Patient is reporting compliance with all his medications. [facility] Medical History COPD (chronic obstructive pulmonary disease) Hypertension Diabetes Sciatica Kidney stone Surgical History History of laminectomy History of hernia surgery Previous back surgery Family History Mother No problems noted. Father No problems noted. Social History Alcohol intake: never Patient Tobacco Use Status: Current everyday Tobacco user Tobacco use type: Cigarette Cigarette Packs Per Day: 1 Cigarettes Per Day: 20.0 Review of Systems Const Denies daytime sleepiness, Denies difficulty sleeping, Denies snoring, Denies stops breathing during sleep and Reports weakness Card Denies chest pain, Denies rapid heart rate, Denies irregular heart rhythm, Denies claudication, Denies leg edema, Denies lightheadedness, Denies palpitations, Reports dyspnea, Denies dyspnea on exertion, Denies orthopnea, Denies paroxysmal nocturnal dyspnea and Denies slow heart rate Resp Denies cough, Reports dyspnea, Denies dyspnea on exertion and Denies snoring GI Reports no additional complaints, Denies hematochezia, Denies change in stool character and Denies dyspepsia Musc Denies abnormal gait, Denies muscle weakness and Denies numbness Neuro Denies abnormal gait, Denies numbness and Reports weakness Endo Denies palpitations Physical Exam Vital Signs: Last Vital Signs Pulse 67 01/27/25 13:43 BP 114/58 L 01/27/25 13:43 BMI result Body Mass Index 24.1 Const General: cooperative, healthy appearing, comfortable and no acute distress Orientation/consciousness: patient oriented x3 HEENT Head: Yes normal to inspection Neck Neck: Yes normal visual inspection, Yes trachea midline and Yes supple Chest Chest palpation & inspection: normal inspection of the chest Resp Effort & Inspection: normal respiratory effort Auscultation: clear to auscultation bilaterally, no crackles, no rales, no rhonchi and no wheezes Cardio Jugular venous distension: no JVD Palpation: normal PMI Rate: regular rate Rhythm: regular rhythm Heart sounds: S1 normal heart sound present, S2 normal heart sound present, no click, no gallops, no murmurs and no rubs Peripheral pulses: Peripheral pulses 2+ throughout GI Inspection: Yes normal to inspection Palpation (GI): Soft to palpation Auscultation: normal bowel sounds Skin General skin exam: no rashes or lesions noted Neuro General: patient oriented x3 Extrem General: Yes normal to inspection, No no pedal edema and No calf tenderness Psych Appearance: grossly normal Mental Status: mental status grossly normal Speech and movement: Normal speech and movement present Assessment & Plan Assessment & Plan (1) Coronary artery disease: Code(s): I25.10 - Atherosclerotic heart disease of [place] coronary artery without angina pectoris Category: Medical Plan: Patient had undergone a long CTA that showed coronary artery calcification and therefore underwent a myocardial perfusion study on 11/22/2024 that showed large area of severe ischemia in the RCA. 01/12/2025-cardiac catheterization with Dr. Waggoner at [facility] showed chronic total occlusion of the RCA with 40% stenosis in the distal left main, and minimal disease in the LAD and diagonal. It was decided to medically manage. Right wrist catheterization site is well healed. Continue lifelong baby aspirin. Continue high-dose statin therapy, metoprolol, and irbesartan. Given his ongoing symptoms of shortness of breath with exertion, we will get a pulmonary function test. Reviewed case with Dr. Waggoner to see if interventional therapy was needed but we decided to go ahead ruling out pulmonary etiology for his ongoing shortness of breath. And if this is negative, we can try isosorbide therapy however have to be careful with his blood pressures as his blood pressure today is 114/58. Advised on heart healthy diet and complete smoking cessation. (2) Status post cardiac catheterization: Code(s): Z98.890 - Other specified postprocedural states Category: Surgical Plan: As above. (3) Dyspnea: Code(s): R06.00 - Dyspnea, unspecified Category: Medical Plan: Given his ongoing symptoms of shortness of breath with exertion and history of COPD and smoker, we will do a pulmonary function test to further evaluate the need for management. Reviewed with Dr. Waggoner. Advised on complete smoking cessation. (4) Hypertension: Code(s): I10 - Essential (primary) hypertension Category: Medical Plan: Blood pressure today is well-controlled. Continue current regimen with a blood pressure goal less than 130/80. Advised monitoring and keep maintaining a log of it at home. (5) Hyperlipidemia, unspecified: Code(s): E78.5 - Hyperlipidemia, unspecified Category: Medical Plan: Most recent LDL at 68. Continue atorvastatin with an LDL goal less than 70. (6) Diabetes: Code(s): E11.9 - Type 2 diabetes mellitus without complications Category: Medical Plan: Continue diabetes management with an A1c goal less than 7%. Most recent at 8.2%. Followed by PCP. Advised on heart healthy diet, regular exercise, med compliance, and aggressive management of vascular risk factors. Follow up in 1 month. In the interim, patient will call the office with any concerns or change in symptoms. Advised to seek ER care in case of exertional chest pain not resolved with rest. This note was generated using voice recognition software. While every effort has been made to ensure accuracy and proper loft worker head, there may be occasional errors that could affect the content or meaning of the described symptoms. Orders: Orders PFT pulmonary function test Today R06.00 - Dyspnea, unspecified Coding Level of Care Code Est Pt Level 4 (56350) Complex EM visit Add On G2211 Diagnoses Coronary artery disease I25.10 Status post cardiac catheterization Z98.890 Dyspnea R06.00 Hypertension I10 Hyperlipidemia, unspecified E78.5 Diabetes E11.9 Time Spent (min) 33 Comment Time spent in reviewing the chart, test results, assessment, counseling and documentation.
[2025-01-27 13:43] VITALS: BP 114/58; PULSE 67; BMI 24.1
--- OUTSIDE RECORDS SUMMARY | 2025-01-27 15:31 | XMS_ITS | Patient Health Record ---
Author Organization Jensen Mark MD Address [address] [place], [place] [id number] Care Team Providers Care Programmer Analyst Name Role Phone Jensen Mark Primary Care Provider Allergies No Known Allergies Results Component Value Reference Range Notes Hemoglobin A1c Reviewed date:06/30/2024 10:06:28 AM Interpretation: Performing Lab: Notes/Report: Hemoglobin A1c 8.5 Hemoglobin A1c Reviewed date:09/30/2024 10:21:47 AM Interpretation: Performing Lab: Notes/Report: Hemoglobin A1c 8.6 Hemoglobin A1c Reviewed date:12/29/2024 10:40:09 AM Interpretation: Performing Lab: Notes/Report: Hemoglobin A1c 7.5 Complete Blood Count Auto Di ff Reviewed date:03/25/2024 04:33:23 PM Interpretation: Performing Lab:[facility], [address] [place] [phone] Notes/Report: White Blood Count 8.6 4.8-10.8 X10*3/uL [...] NRBC Abs Auto 0.000 0.0-0.012 X10*3/uL Comprehensive [place]. Panel Fa st Reviewed date:03/25/2024 04:31:12 PM Interpretation: Performing Lab:[facility], [address] [place] [phone] Notes/Report: Sodium 140 135-145 mmol/L Potassium 3.9 [...] Panel Reviewed date:03/25/2024 04:28:45 PM Interpretation: Performing Lab:[address] [address] Notes/Report: Triglycerides 55 <150 mg/dL Desirable Triglyceride: [...] (Free>4and<10) Reviewed date:03/25/2024 04:34:23 PM Interpretation: Performing Lab:[address] [address] Notes/Report: PSA,Total (Free>4and<10) 1.01 0.00-4.00 ng/mL A [...] Random Reviewed date:03/25/2024 04:29:15 PM Interpretation: Performing Lab:[address] [phone] Notes/Report: Creatinine Urine 109.36 Microalbumin Urine 447.0 Microalbum/Creatinine Ratio Ur 408.7 <30 ug/mg cr Albumin/Creatinine Ratio Reference Ranges: Normal: < 30 ug/mg creatinine Microalbuminuria: 30 - 300 ug/mg creatinine Clinical Albuminuria: > 300 ug/mg creatinine Hemoglobin A1c Reviewed date:03/25/2024 04:33:34 PM Interpretation: Performing Lab:[facility], [address] [place] [phone] Notes/Report: Hemoglobin A1c % 8.2 <6.0 % [...] average glucose, using the formula of the M7L-Mycsyvv Average Glucose study (ADAG), Diabetes Care, Vol.31,#8, 2007 UA ClnCatch+Micro w/rflx Cul t Reviewed date:03/25/2024 04:35:01 PM Interpretation: Performing Lab:[facility], [address] [place] [phone] Notes/Report: Urine, Clean Catch Color Urine Yellow Appearance Urine Cloudy PH 6.5 5.0-9.0 Glucose Urine UA Negative Negative mg/dL Urine Blood Negative Negative Specific [place] - Urine 1.025 1.005-1.025 Urine Protein 100 (2+) Neg-Trace mg/dL Urine Ketones Negative Negative mg/dL Nitrite Urine Negative Negative Leukocyte Esterase Urine Small (1+) Negative RBC Urine 0-2 0-2 /HPF WBC Urine 21-50 0-5 /HPF Squamous Epithelial Cell Urine 0-2 0-2 /HPF Bacteria Urine None Seen None Seen Hyaline Casts Urine 0-2 0-2 /LPF Liver Panel Reviewed date:09/23/2024 04:37:47 PM Interpretation: Performing Lab:[facility], [address] [place] [phone] Notes/Report: Bilirubin Total 0.5 0.0-1.0 mg/dL Bilirubin Direct 0.2 0.0-0.5 mg/dL Aspartate Amino Transferase 27 5-37 U/L Alanine Aminotransferase 21 0-40 U/L Total Protein 6.7 6.5-8.0 g/dL Albumin Level 4.1 3.5-5.0 g/dL Alkaline Phosphatase 92 39-117 U/L Lipid Panel with Reflex Reviewed date:09/23/2024 04:36:03 PM Interpretation: Performing Lab:[facility], [address] [place] [phone] Notes/Report: Triglycerides 53 <150 mg/dL Desirable Triglyceride: [...] PM Interpretation: Performing Lab: Notes/Report: Value 325 Glucose, finger stick Reviewed date:12/29/2024 10:33:43 AM Interpretation: Performing Lab: Notes/Report: Value 110 Urine Culture Reviewed date:03/26/2024 04:04:43 PM Interpretation: Performing Lab:[facility], [address] [place] [phone] Notes/Report: Urine Culture No growth. Jasper Mercedes Reviewed date:09/23/2024 04:33:10 PM Interpretation: Performing Lab:[facility], [address] [place] [phone] Notes/Report: Jasper Mercedes See Note Specimen held untested for 24 hours; Call to request Chemistry testing. UT cardiolite stress test Reviewed date:11/25/2024 02:55:27 PM Interpretation: Performing Lab: Notes/Report: [address] [place] [address] Nuclear Medicine Report Signed Patient: Franky Wade MR#: [id number] 904 : 1950 Acct:[id number] Age/Sex: 74 / M ADM Date: 11/22/24 Loc: [facility] Attending Dr: Mahendra Nj MD Ordering Physician: Mahendra Nj MD Date of Service: 11/22/24 Procedure(s): [place] cardiolite stress test Accession Number(s): [id number] cc: Jensen Mark MD; Mahendra Nj MD [...] 11/23/24 1655 DD/ 0801 TD/TT: 11/23/24 1345 Delivery Representative: [place] [address] Nuclear Medicine Report Signed Patient: Margot Wade P MR#: [id number] 904 : 1950 Acct:[id number] Age/Sex: 74 / M ADM Date: 11/22/24 Loc: [facility] Attending Dr: Kylee Nj MD Ordering Physician: Mahendra Nj MD Date of Service: 11/22/24 Procedure(s): [place] cardiolite stress test Accession Number(s): [id number] cc: Jensen Mark MD; Mahendra Nj MD Lexiscan Myocardial perfusion study Indication: Atherosclerotic hear t disease to evaluate for myocardial ischemia Technique: The patient was brou t in for a Lexiscan perfusion study on [...] 11/23/24 1655 DD/ 0801 TD/TT: 11/23/24 1345 Delivery Representative: Complete Blood Count no Diff Reviewed date:12/22/2024 12:18:11 PM Interpretation: Performing Lab:[address] [phone] Notes/Report: White Blood Count 6.9 4.8-10.8 X10*3/uL Red Blood Count 4.99 4.60-5.80 X10*6/uL Hemoglobin 16.1 14.0-18.0 g/dl Hematocrit 46.8 42.0-52.0 % Mean Corpuscular Volume 93.8 80.0-98.0 fL Mean Corpuscular Hemoglobin 32.3 27.0-33.0 pg Mean Corpuscular HGB Conc 34.4 31.0-36.0 g/dl Red Cell Distribution Width 13.4 11.0-16.0 % Platelet Count 200 160-400 X10*3/uL Mean Platelet Volume 9.8 9.4-12.4 fL NRBC Pct Auto 0.0 0.0-0.2 /100WBC NRBC Abs Auto 0.000 0.0-0.012 X10*3/uL Prothrombin Time INR Reviewed date:12/22/2024 12:17:23 PM Interpretation: Performing Lab:[address] [address] Notes/Report: Prothrombin Time 10.8 10.9-12.4 SEC INTERNATIONAL NORM RATIO 0.9 0.9-1.1 INTERNATIONAL NORMALIZED RATIO (INR) REFERENCE RANGES Reference Range For patients not on anticoagulant therapy: 0.9 - 1.1 INR ranges for oral anticoagulant therapy: For prevention and treatment of venous thrombosis and pulmonary embolism: 2.0 - 3.0 For acute myocardial infarction with aspirin therapy: 2.0 - 3.0 For acute myocardial infarction without aspirin therapy: 3.0 - 4.0 For patients with mechanical prosthetic heart valves: 2.5 - 3.5 Basic Metabolic Panel Reviewed date:12/22/2024 12:19:12 PM Interpretation: Performing Lab:[address] [address] Notes/Report: Sodium 141 135-145 mmol/L Potassium 4.8 3.3-5.1 mmol/L Slight Hemolysis.Interpret result with caution. Chloride 106 96-108 mmol/L Carbon Dioxide 29 22-29 mmol/L Anion Gap 11 12-20 Blood Urea Nitrogen 15 9-16 mg/dL Creatinine 0.65 0.5-1.4 mg/dL Estimated Glomerular Filt Rate > 60 Chronic Kidney Disease: Estimated GFR < 60 mL/min/1.73m2 Severe Kidney Disease: Estimated GFR < 15 mL/min/1.73m2 Glucose Random 114 60-115 mg/dL Calcium 9.3 8.4-10.2 mg/dL Reason For Referral Reason ABNORMAL CT SCAN Diagnosis [address] scan, ch est (R93.89) Referral Organization Jensen Mark MD Referring Provider First Name Jensen Referring Provider Last Name Jas Referring Provider Speciality Internal M edicine Referred Provider [place] Referred Provider Specialty Cardiology General Notes Cyndee Balderas 06/30/2024 10:44:59 AM >FAX REFERRAL TO [facility] FOR NEW PATIENT APPT, Cyndee Balderas [...] Duration) Notes Start Date End Date Status metFORMIN HCl 1000 MG TAKE ONE TABLET BY MOUTH TWICE A DAY WITH MEALS Active Gabapentin 300 MG 1 capsule Orally Onc e a day for 30 days 09/30/2024 Active Flonase Allergy Relief 50 MCG/ACT 1 spray in each nostril Nasally Once a day for 30 day(s) 12/13/2018 Not-Taking Irbesartan 150 MG TAKE 1 TABLET BY TAY EVERY DAY Active Budesonide 3 MG 2 capsules Orally On ce a day for 30 day(s) Active Viagra 100 MG 1 tablet as needed Orally Once a day for 30 day(s) 11/13/2017 Not-Taking Chantix Continuing Month Maverick 1 MG as directed Orally twice a day for 30 days 05/20/2019 Not-Taking Chantix Starting Month Maverick 0.5 MG X 11 & 1 MG X 42 as directed Orally one tab twice a day for 30 days 05/20/2019 Not-Taking Escitalopram Oxalate 20 MG TAKE 1 TABLET BY MOUTH EVERY DAY for 90 Active Cyclobenzaprine HCl 5 MG 1 tablet Orally 2 times a day for 30 days Not-Taking Atorvastatin Calcium 80 MG TAKE 1 TABLET BY MOUTH EVERY DAY Active Ibuprofen 800 MG 1 tablet Orally as needed for 30 Not-Taking Cyclobenzaprine HCl 5 MG 1 tablet as nee ded Orally Three times a day for 10 days 05/31/2019 Not-Taking Tamsulosin HCl 0.4 MG TAKE 1 CAPSULE BY MOUTH TWICE A DAY for 90 Active Lantus SoloStar 100 UNIT/ML as directed 14 units Subcutaneous daily for 90 days 09/30/2024 Active Immunizations Vaccine Route Administration Date Status [...] e vaccine at [facility] PPSV23 (Pnemovax) Unknown 02/21/2020 Administered Covid Vaccine Unknown 07/06/2020 Administered Pfizer Covid Vaccine Unknown 07/27/2020 Administered Pfizer Influenza High Dose Unknown 02/03/2021 Administered SARS-COV-2 Pfizer Unknown 01/25/2021 Administered Fluarix Quadrivalent IM Intramuscular 03/11/2022 Administered Prevnar 13 Unknown 09/11/2014 Refused Prevnar 13 Unknown 09/23/2016 Refused Shingrix Unknown 11/13/2017 Refused Influenza High Dose Unknown 12/29/2024 Refused Social History Tobacco Use: Social History [...] Status W/U Status Risk Notes Problem Neuropathy (398893411) Neuropathy (G62.9) Active confirmed Problem 33033622 Dysthymic disord er (F34.1) Active confirmed Problem 02824543 Prostatism (N40.0) Active confirmed Problem 510420714 Lung nodule seen on imaging study (R91.1) Active confirmed Problem 2075777 Panlobular emphy sema (J43.1) Active confirmed Problem 756267649 Lumbar disc dise ase (M51.9) Active confirmed Problem 39401458 Essential hypertension (I10) Active confirmed Problem 36911569 Type 2 diabetes mellitus without complication (E11.9) Active confirmed Problem Diabetic peripheral neuropathy associated with type 2 diabetes mellitus (2595942088426) 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) Active confirmed Problem 618443251 Lung nodule (R91.1) Active confirmed Problem 92634245 Type 2 diabetes, controlled, with neuropathy (E11.40) Active confirmed Problem 64609412 Current smoker (F17.200) Active confirmed Problem 322356503 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) Active confirmed Problem 037549088 Vasculogenic ere ctile dysfunction, unspecified vasculogenic erectile dysfunction type (N52.9) Active confirmed Problem 22031249 Abdominal aortic aneurysm (AAA) without rupture (I71.4) Active confirmed Problem 4175525435 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) Active confirmed Problem 806916058 Pure hypercholesterolemia (E78.00) Active confirmed Problem Hypercholesterolemia (04136273) Hypercholesterolemia (E78.00) Active confirmed Problem 96066573 Bilateral carpal tunnel syndrome (G56.03) Active confirmed Problem 3217761 Peyronie's disea se (N48.6) Active confirmed Problem 29813974 Aortic aneurysm without rupture, unspecified portion of aorta (I71.9) Active confirmed Problem 07299007277053901 Abnormal CT sc an, chest (R93.89) Active confirmed Problem 530773861 Lumbar disc herniation (M51.26) Active confirmed Problem 990681766 Pain, penile (N48.89) Active confirme d Problem 785249108 Microscopic coli tis, unspecified microscopic colitis type (K52.839) Active confirmed Vital Signs Blood pressure diastolic 60 mm Hg 12/29/2024 Height 69 in 12/29/2024 Blood pressure systolic 122 mm Hg 12/29/2024 Weight 159 lbs 12/29/2024 BMI 23.48 kg/m2 12/29/2024 Encounters Encounter Location Date Provider Diagnosis Jensen Mark MD [address] [place] [id number] 03/25/2024 Jensen Mark Essential hypertensi on I10 ; Type 2 diabetes mellitus without complication E11.9 ; Pure hypercholesterolemia E78.00 and Hypercholesterolemia E78.00 Jensen Mark MD [address] [place] [address] Drive [address] [place] [id number] 09/23/2024 Jensen Mark Pure hypercholestero lemia E78.00 Jensen Mark MD [address] [place] [address] Drive [address] [place] [id number] 04/01/2024 Jensen Mark Essential hypertensi on I10 ; Type 2 diabetes mellitus without complication E11.9 ; Pure hypercholesterolemia E78.00 ; Panlobular emphysema J43.1 ; Prostatism N40.0 ; Dysthymic disorder F34.1 ; Colon cancer screening Z12.11 ; Depression screening Z13.31 and Abdominal aortic aneurysm (AAA), unspecified part, unspecified whether ruptured I71.40 Jensen Mark MD [address] [place] [id number] 06/30/2024 Jensen aMrk Type 2 diabetes hi itus without complication E11.9 ; Abnormal CT scan, chest R93.89 ; Current smoker F17.200 and Lymphocytic colitis K52.832 Jensen Mark MD [address] [place] [id number] 09/30/2024 Jensen Mark Type 2 diabetes hi itus without complication E11.9 ; Neuropathy G62.9 ; Essential hypertension I10 and Pure hypercholesterolemia E78.00 Jensen Mark MD [address] [place] [id number] 10/27/2024 Jensen Mark Type 2 diabetes hi itus without complication E11.9 Jensen Mark MD [address] [place] [id number] 12/29/2024 Jensen Mark Type 2 diabetes hi itus without complication E11.9 ; Essential hypertension I10 and Abnormal stress test R94.39 Jensen Mark MD [address] [place] [id number] 04/01/2024 Jensen Mark MD [address] [place] [id number] 10/04/2024 Jensen Mark MD [address] [place] [id number] 01/02/2025 Jensen Mark Type 2 diabetes hi itus without complication E11.9 Assessments Encounter Date Diagnosis [...] diabetes mellitus without complication (ICD-10 - E11.9) 12/29/2024 Type 2 diabetes mellitus without complication (ICD-10 - E11.9) will continue curent regiment 12/29/2024 Essential hypertensi on (ICD-10 - I10) stable, will continue current regiment 01/02/2025 Type 2 diabetes mellitus without complication (ICD-10 - E11.9) 03/25/2024 Pure hypercholesterolemia (ICD-10 - E78.00) 04/01/2024 Pure hypercholesterolemia (ICD-10 - E78.00) doing well , will continue current regiment 06/30/[address] scan, ch est (ICD-10 - R93.89) referral to cardiology/ REFFERRAL TO [facility] 09/30/2024 Essential hypertensi on (ICD-10 - I10) stable, will continue current regiment 12/29/2024 Abnormal stress test (ICD-10 - R94.39) followed by cardiology 03/25/2024 Hypercholesterolemia (ICD-10 - E78.00) 04/01/2024 Panlobular [...] Summers ier, 02/02/2025 10:00:00 AM, [address] [facility], [address], [place], [place], [phone], Provider Name:Jensen Summers ier, 04/03/2025 07:30:00 AM, [address], [address], [place], [place], [phone], Provider Name:Jensen Summers ier, 04/14/2025 09:30:00 AM, [address] [facility], [address], [place], [place], [id number], Insurance Providers Payer Name Payer Address Payer Phone Subscriber Number Group Number Insured Name Patient Relationship to Insured Coverage Start Date Coverage End Date MEDICARE [facility] [place] [address] [place] [address] [id number] Franky Wade Self - patient is the insured MEDEX BCBS OF [facility] [address] [place] [address] [id number] Franky Wade Self - patient is the insured Medical (General) History Medical History History ICD Code colonoscopy 09/2006 - repeat 10 years; colonoscopy booked w/Dr. Ramirez for 03/20/17( pt cx and has not rebooked); had negative cologuard on 05/29/19). Colonoscopy 07/07/22 pending path
--- OUTSIDE RECORDS SUMMARY | 2025-01-27 15:31 | XMS_ITS | Patient Health Record ---
Author Organization [facility] Address [address] [place] [address] Care Team Providers Care Cold Mill Supervisor Name Role Phone Jensen Mark MD Primary Care Provider Esa Cochran Unavailable [phone] Allergies No Known Allergies Reason For Referral [...] B Y MOUTH TWO TIMES A DAY Oral; Duration: 90 Active Irbesartan 150 MG TAKE ONE TABLET BY M OUTH EVERY DAY Oral; Duration: 90 Active Telmisartan 40 MG 1 tablet Orally Once a day Active Escitalopram Oxalate 20 MG 0.5 tablet Or ally Once a day Active Cyclobenzaprine HCl 5 MG TAKE ONE TABLET BY MOUTH THREE TIMES A DAY NEEDED FOR 10 DAYS Oral; Duration: 10 Active Budesonide 3 MG 1 Orally [...] Problem Status W/U Status Risk Notes Problem Screening for malignant neoplasm of colon (815905060) Encounter for screening for malignant neoplasm of colon (Z12.11) Active confirmed Problem Weight loss (806688297) Weight loss (R63.4) Active confirmed Problem Diverticular disease of colon (609468364) Diverticulosis of large intestine without perforation or abscess without bleeding (K57.30) Active confirmed Problem Preprocedural examination (274759538792118) Preprocedural examination (Z01.818) Active confirmed Problem Diarrhea (64705824) Diarrhea, unspecified type (R19.7) Active confirmed Problem Lymphocytic colitis (5258781518) Lymphocytic colitis (K52.832) Active confirmed Vital Signs Temperature 97.7 degrees Fahrenheit 04/27/2024 Blood pressure diastolic 00 mm Hg 04/27/2024 Height 70 in 04/27/2024 Blood pressure systolic 000 mm Hg 04/27/2024 Weight 152 lbs 04/27/2024 BMI 21.81 kg/m2 04/27/2024 Encounters Encounter Location Date Provider Diagnosis [facility] [address] [place] [phone] 04/27/2024 Esa Ramirez Diarrhea, unspecifie d type R19.7 and Lymphocytic colitis K52.832 [facility] [address] [place] [phone] 04/28/2024 Esa Ramirez [facility] [address] [place] [phone] 12/12/2024 Esa Ramirez Assessments Encounter Date Diagnosis (ICD [...] Name:Esa Ramirez , 04/28/2025 01:00:00 PM, [address] [facility], [address], [place], [address], Insurance Providers Payer Name Payer Address Payer Phone Subscriber Number Group Number Insured Name Patient Relationship to Insured Coverage Start Date Coverage End Date MEDICARE OF [place] [address] [place] [address] [phone] [id number] FRANKY LANGSTON Self - patient is the insured MEDEX ATT[employer] CLAIMS [address] [place] [address] [id number] FRANKY LANGSTON Self - patient is the insured Medical (General) History Medical History History ICD Code Denies [place],CVA,renal disease NIDDM-on Metformin HTN Hyperlipidemia AAA---followed by [...]
== END 2025-01-27 14:14 | disposition home or self-care (01) ==
LOC: HO.HCS 13:30
PROVIDERS: PCP Internal Medicine
DX: I25.10 Atherosclerotic heart disease of native coronary artery without angina pectoris (principal); Z98.890 Other specified postprocedural states; R06.00 Dyspnea, unspecified; I10 Essential (primary) hypertension; E78.5 Hyperlipidemia, unspecified; E11.9 Type 2 diabetes mellitus without complications
CPT/HCPCS: 99214; G2211

== ENCOUNTER → 2025-01-27 13:30 | Outpatient (BNVA) | payer MEDICARE, SELFPAY | PROVIDERS: PCP Internal Medicine | DX: I25.10 Atherosclerotic heart disease of native coronary artery without angina pectoris (principal); Z72.0 Tobacco use; Z98.890 Other specified postprocedural states; I10 Essential (primary) hypertension; R06.00 Dyspnea, unspecified; E78.5 Hyperlipidemia, unspecified; E11.9 Type 2 diabetes mellitus without complications; Z79.84 Long term (current) use of oral hypoglycemic drugs | CPT/HCPCS: 99212 ==

== ENCOUNTER 2025-03-01 14:20 | Outpatient (AMB) | payer MEDICARE, SELFPAY ==
--- NOTE | 2025-03-01 14:23 | A.OFFVIS_ITS ---
Vital Signs 03/01/25 14:24 Height 5 ft 9 in Weight 161 lb 6.054 oz BMI 23.8 BP 116/62 Blood Pressure Location Lt brachial Position Sitting Pulse 67 Pulse Source Pulse Oximeter Intake Visit Reasons: 1 mth fup Power Crane Operator Required: No Accompanied by: Self / Same As Patient Allergies No Known Allergies Allergy (Verified 03/01/25 14:26) Medication List - Last Reconciled 03/01/25 by Calderon Sebastian NP aspirin (Adult Aspirin Regimen) 81 mg PO DAILY atorvastatin 80 mg PO DAILY budesonide DR-ER 3 mg PO DAILY escitalopram oxalate 20 mg PO DAILY irbesartan 150 mg PO DAILY metformin 1,000 mg PO BID metoprolol succinate ER (Toprol XL) 25 mg PO DAILY tamsulosin 0.4 mg PO BID HPI Comments Details: This is a 74-year-old male patient coming in for a follow-up visit. Patient with a history of hypertension, hyperlipidemia, coronary artery disease, diabetes, COPD, and smoker. Patient with chronic shortness of breath who was noted to have coronary disease on chest CT and afterwards had an abnormal myocardial perfusion study and was referred for cardiac catheterization. It was noted that patient had chronic total occlusion of the RCA with 40% stenosis in the distal left main and minimal disease in the LAD and diagonal. Patient had reported continued shortness of breath for which we had planned for pulmonary workup however this has not been completed yet. Today, patient is reporting feeling well overall without any cardiac symptoms of exertional chest pain, shortness of breath, palpitations, dizziness, orthopnea, PND, leg edema, presyncope or syncope. Patient is reporting compliance with all his medications. [facility] Medical History COPD (chronic obstructive pulmonary disease) Hypertension Diabetes Sciatica Kidney stone Surgical History History of laminectomy History of hernia surgery Previous back surgery Family History Mother No problems noted. Father No problems noted. Social History Alcohol intake: never Patient Tobacco Use Status: Current everyday Tobacco user Tobacco use type: Cigarette Cigarette Packs Per Day: 1 Cigarettes Per Day: 20.0 Review of Systems Const Denies daytime sleepiness, Denies difficulty sleeping, Denies snoring, Denies stops breathing during sleep and Denies weakness Card Denies chest pain, Denies rapid heart rate, Denies irregular heart rhythm, Denies claudication, Denies leg edema, Denies lightheadedness, Denies palp itations, Denies dyspnea, Denies dyspnea on exertion, Denies orthopnea, Denies paroxysmal nocturnal dyspnea and Denies slow heart rate Resp Denies cough, Denies dyspnea, Denies dyspnea on exertion and Denies snoring GI Reports no additional complaints, Denies hematochezia, Denies change in stool character and Denies dyspepsia Musc Denies abnormal gait, Denies muscle weakness and Denies numbness Neuro Denies abnormal gait, Denies numbness and Denies weakness Endo Denies palpitations Physical Exam Vital Signs: Last Vital Signs Pulse 67 03/01/25 14:24 BP 116/62 03/01/25 14:24 BMI result Body Mass Index 23.8 Const General: cooperative, healthy appearing, comfortable and no acute distress Orientation/consciousness: patient oriented x3 HEENT Head: Yes normal to inspection Neck Neck: Yes normal visual inspection, Yes trachea midline and Yes supple Chest Chest palpation & inspection: normal inspection of the chest Resp Effort & Inspection: normal respiratory effort Auscultation: clear to auscultation bilaterally, no crackles, no rales, no rhonchi and no wheezes Cardio Jugular venous distension: no JVD Palpation: normal PMI Rate: regular rate Rhythm: regular rhythm Heart sounds: S1 normal heart sound present, S2 normal heart sound present, no click, no gallops, no murmurs and no rubs Peripheral pulses: Peripheral pulses 2+ throughout GI Inspection: Yes normal to inspection Palpation (GI): Soft to palpation Auscultation: normal bowel sounds Skin General skin exam: no rashes or lesions noted Neuro General: patient oriented x3 Extrem General: Yes normal to inspection, No no pedal edema and No calf tenderness Psych Appearance: grossly normal Mental Status: mental status grossly normal Speech and movement: Normal speech and movement present Assessment & Plan Assessment & Plan (1) Coronary artery disease: Code(s): I25.10 - Atherosclerotic heart disease of [place] coronary artery without angina pectoris Category: Medical Plan: Patient had undergone a long CTA that showed coronary artery calcification and therefore underwent a myocardial perfusion study on 11/22/2024 that showed large area of severe ischemia in the RCA. 01/12/2025-cardiac catheterization with Dr. Waggoner at [facility] showed chronic total occlusion of the RCA with 40% stenosis in the distal left main, and minimal disease in the LAD and diagonal. It was decided to medically manage. Previously patient had reported ongoing shortness of breath with exertion for which we had planned for a pulmonary function test to rule out pulmonary etiology however this was never completed. Clinically stable and without any cardiac symptoms. Continue lifelong baby aspirin therapy. No reported signs of bleeding. Continue statin, metoprolol, and it was statin therapy. Patient will try calling centralized scheduling to work on the PFT. If this is negative, we will plan on titrating his medical therapy with maybe adding isosorbide. Advised heavily on smoking cessation. (2) Status post cardiac catheterization: Code(s): Z98.890 - Other specified postprocedural states Category: Surgical Plan: As above. (3) Hypertension: Code(s): I10 - Essential (primary) hypertension Category: Medical Plan: Blood pressure today is well-controlled. Continue current regimen with a blood pressure goal less than 130/80. Advised monitoring and keep maintaining a log of it at home. (4) Hyperlipidemia, unspecified: Code(s): E78.5 - Hyperlipidemia, unspecified Category: Medical Plan: Most recent LDL at 68. Continue statin therapy with an LDL goal less than 70. (5) Diabetes: Code(s): E11.9 - Type 2 diabetes mellitus without complications Category: Medical Plan: Continue diabetes management with an A1c goal less than 7%. Most recent at 8.2%. Followed by PCP. Advised on heart healthy diet, regular exercise, med compliance, and aggressive management of vascular risk factors. Follow up in 4 month. In the interim, patient will call the office with any concerns or change in symptoms. Advised to seek ER care in case of exertional c hest pain not resolved with rest. This note was generated using voice recognition software. While every effort has been made to ensure accuracy and proper arc air operator, there may be occasional errors that could affect the content or meaning of the described symptoms. Coding Level of Care Code Est Pt Level 4 (99324) Complex visit Add On G2211 Diagnoses Coronary artery disease I25.10 Status post cardiac catheterization Z98.890 Hypertension I10 Hyperlipidemia, unspecified E78.5 Diabetes E11.9 Time Spent (min) 33 Comment Time spent in reviewing the chart, test results, assessment, counseling and documentation.
[2025-03-01 14:24] VITALS: BP 116/62; PULSE 67; BMI 23.8
== END 2025-03-01 14:55 | disposition home or self-care (01) ==
LOC: HO.HCS 14:21
PROVIDERS: PCP Internal Medicine
DX: I25.10 Atherosclerotic heart disease of native coronary artery without angina pectoris (principal); Z98.890 Other specified postprocedural states; I10 Essential (primary) hypertension; E78.5 Hyperlipidemia, unspecified; E11.9 Type 2 diabetes mellitus without complications
CPT/HCPCS: 99214; G2211

== ENCOUNTER → 2025-03-01 14:20 | Outpatient (BNVA) | payer MEDICARE, SELFPAY | PROVIDERS: PCP Internal Medicine | DX: I25.10 Atherosclerotic heart disease of native coronary artery without angina pectoris (principal); I10 Essential (primary) hypertension; E78.5 Hyperlipidemia, unspecified; F17.210 Nicotine dependence, cigarettes, uncomplicated; Z98.890 Other specified postprocedural states | CPT/HCPCS: 99212 ==

== ENCOUNTER 2025-04-03 07:30 | Outpatient (REF) | payer MEDICARE, SELFPAY ==
--- OUTSIDE RECORDS SUMMARY | 2024-01-13 08:20 | XMS_ITS ---
Author Organization [facility] Address [address] [place] [address] Care Team Providers Care Tree Trimming Line Technician Name Role Phone Jas CARTAGENA, Jensen Primary Care Provider Esa Cochran [phone] REASON FOR VISIT COLITIS Encounters Encounter Location Date Provider Diagnosis [facility] [address] [place] [address] 01/13/2024 Esa Ramirez Plan Of Treatment Next Appt Details Provider Name:Esa Ramirez , 04/28/2025 01:00:00 PM, [address], [address], [place], [address], Progress Notes * JERRY LANGSTON PDOB:[birth year] (75 yo M)Acc No.[id number]:01/13/2024 Progress Notes Patient: Laura FREYJERRY MITCHELL Provider: Mini Ramirez MD :1950 A ge:73 Y S ex:Male Date:01/13/2024 Address:[address], [id number] Pcp:Jensen Mark MD Subjective: * Chief Complaints: * C OLITIS * The named appointment provid er may or may not be the originator of this progress note, and it is not deemed complete until electronically signed by the appointment provider. Sign off status: Pending * Provider: Mini Ramirez MD Date: Generated for Mary murray/Yuliana/eTransmitting on: 12:12 PM EST
--- OUTSIDE RECORDS SUMMARY | 2024-06-30 05:15 | XMS_ITS ---
Author Organization Jensen Mark MD Address [address] [place], [place] [id number] Care Team Providers Care Material Control Manager Name Role Phone Jensen Mark Primary Care Provider [phone] Allergies No Known Allergies Results Component Value Reference Range Notes Hemoglobin A1c Reviewed date:06/30/2024 10:06:28 AM Interpretation: Performing Lab: Notes/Report: Hemoglobin A1c 8.5 Glucose, finger stick Reviewed date:06/30/2024 09:56:15 AM Interpretation: Performing Lab: Notes/Report: Value 175 Reason For Referral Reason ABNORMAL CT SCAN Diagnosis [address] scan, ch est (R93.89) Referral Organization Jensen Mark MD Referring Provider First Name Jensen Referring Provider Last Name Jas Referring Provider Speciality Internal M edicine Referred Provider [place] Referred Provider Specialty Cardiology General Notes Cyndee Balderas 06/30/2024 10:44:59 AM >FAX REFERRAL TO [facility] FOR NEW PATIENT APPTSherrie Patti A 08/08/2024 12:00:49 PM >NOT BOOKED YET, HE WILL BE BOOKED URGENTLY AND JULIENNE WILL CALL US, Cyndee Balderas 09/12/2024 02:06:25 PM >per julienne , patient still on cancellation list , should be booked soon, Cyndee Balderas 09/30/2024 10:04:21 AM >OFFICE NOTE RECD Referral Priority Routine Referral Appointment Date 09/29/2024 REASON FOR VISIT 3 month Medications Medication SIG (Take, Route, Frequency, Duration) Notes Start Date End Date Status Cyclobenzaprine HCl 5 MG 1 tablet Orally 2 times a day for 30 days Not-Taking Viagra 100 MG 1 tablet as needed Orally Once a day for 30 day(s) 11/13/2017 Not-Taking Flonase Allergy Relief 50 MCG/ACT 1 spray in each nostril Nasally Once a day for 30 day(s) 12/13/2018 Not-Taking Ibuprofen 800 MG 1 tablet Orally as needed for 30 Not-Taking Farxiga 5 MG 1 tablet Orally Once a day for 30 days 06/30/2024 Active Chantix Continuing Month Maverick 1 MG as directed Orally twice a day for 30 days 05/20/2019 Not-Taking Tamsulosin HCl 0.4 MG TAKE ONE CAPSULE B Y MOUTH TWICE A DAY ORALLY TWICE A DAY 90 DAYS Active metFORMIN HCl 1000 MG TAKE ONE TABLET BY MOUTH TWICE A DAY WITH MEALS ORALLY Active Irbesartan 150 MG TAKE 1 TABLET BY MOUTH EVERY DAY Active Chantix Starting Month Maverick 0.5 MG X 11 & 1 MG X 42 as directed Orally one tab twice a day for 30 days 05/20/2019 Not-Taking Cyclobenzaprine HCl 5 MG 1 tablet as nee ded Orally Three times a day for 10 days 05/31/2019 Not-Taking Atorvastatin Calcium 80 MG TAKE 1 TABLET BY MOUTH EVERY DAY Active Budesonide 3 MG 2 capsules Orally Once a day for 30 day(s) Active Escitalopram Oxalate 20 MG TAKE 1 TABLET BY MOUTH EVERY DAY Active Vital Signs Blood pressure systolic 112 mm Hg 07/01/19 25 Blood pressure diastolic 64 mm Hg 025 Height 69 in 06/30/2024 Weight 155 lbs 06/30/2024 BMI 22.89 kg/m2 06/30/2024 Encounters Encounter Location Date Provider Diagnosis Jensen Mark MD [address] [facility] [address] [place], [place] [phone] 06/30/2024 Jensen Mark Type 2 diabetes mellitus without complication E11.9 ; Abnormal CT scan, chest R93.89 ; Current smoker F17.200 and Lymphocytic colitis K52.832 Assessments Encounter Date Diagnosis (ICD Code) Assessment Notes Treatment Notes Treatment Clinical Notes Section Notes 06/30/2024 Type 2 diabetes mellitus without complication (ICD-10 - E11.9) patient verbalized understanding of medication and directions for use 06/30/[address] scan, chest (ICD-10 - R93.89) referral to cardiology/ REFFERRAL TO [facility] 06/30/2024 Current smoker (ICD-10 - F17.200) not wanting to stop 06/30/2024 Lymphocytic colitis (ICD-10 - K52.832) doing well on bidesinide, will continue current regiment Plan Of Treatment Medication Medication Name Sig Start Date Stop Date Notes Farxiga 5 MG 1 tablet Orally Once a day for 30 days 2024 Treatment Notes Assessment Notes Type 2 diabetes mellitus wit hout complication patient verbalized understanding of medication and directions for use Abnormal CT scan, chest referral to card iology/ REFFERRAL TO [facility] Current smoker not wanting to stop Lymphocytic colitis doing well on bidesi nide, will continue current regiment Referrals Referral Date Details 06/30/2024 06/30/2024, ABNORMAL CT SCAN, [place] Next Appt Details Follow Up: 3 Months, Reason: Provider Name:Jensen wade, 04/14/2025 09:30:00 AM, [address] [place] [address], [address], [place], [place], [phone], Progress Notes * Franky WADEDOB:1950 (74 yo M)Acc No.[id number]:06/30/2024 Progress Notes Patient: Franky LAKE Provider: Chelsie Mark MD :1950 A ge:74 Y S ex:Male Date:06/30/2024 Address:[address], [id number] Subjective: * Chief Complaints: * 3 month * HPI: S ymptom(s): patient is 74 yo male here for 3 month follow up visit, has had several chest ct/ no significant changes. * ROS: G eneral/Constitutional: Denies C hills. D enies F atigue. D enies F ever. D enies H eadache. E NT: Denies S ore throat. E ndocrine: Admits D ifficulty sleeping. D enies D izziness.?Denies E xcessive sweating. D enies E xcessive thirst. A dmits F requent urination. R espiratory: Denies C ough. D enies S hortness of breath at rest. D enies S hortness of breath with exertion. G astrointestinal: Denies D iarrhea. D enies N ausea. * Medical History: * Surgical History: * Hospitalization/Major Diagno stic Procedure: * Medications: T akingBudesonide 3 MG Capsule Delayed Release Particles 2 capsules Orally Once a day Atorvastatin Calcium 80 MG Tablet TAKE 1 [...] Release Particles 2 capsules Orally Once a day Taking Atorvastatin Calcium 80 MG Tablet TAKE 1 [...] TAKE 1 TABLET BY MOUTH EVERY DAY Not-Taking/PRNCyclobenzaprine HCl 5 MG Tablet 1 tablet as needed Orally Three times a day Chantix Starting Month Mavreick 0.5 MG X 11 & 1 MG X 42 Tablet as directed Orally one tab twice a day Chantix Continuing Month Maverick 1 MG Tablet as directed Orally twice a day Viagra 100 MG Tablet 1 tablet as needed Orally Once a day Flonase Allergy Relief 50 MCG/ACT Suspension 1 spray in each nostril Nasally Once a day Ibuprofen 800 MG Tablet 1 tablet Orally as needed Cyclobenzaprine HCl 5 MG Tablet 1 tablet Orally 2 times a day Medication List reviewed and reconciled with the patientNot-Taking/PRN Cyclobenzaprine HCl 5 MG Tablet 1 tablet as needed Orally Three times a day Not-Taking/PRN Chantix Starting Month Maverick 0.5 MG X 11 & 1 MG X 42 Tablet as directed Orally one tab twice a day Not-Taking/PRN Chantix Continuing Month Maverick 1 MG Tablet as directed Orally twice a day Not-Taking/PRN Viagra 100 MG Tablet 1 tablet as needed Orally Once a day Not-Taking/PRN Flonase Allergy Relief 50 MCG/ACT Suspension 1 spray in each nostril Nasally Once a day Not-Taking/PRN Ibuprofen 800 MG Tablet 1 tablet Orally as needed Not-Taking/PRN Cyclobenzaprine HCl 5 MG Tablet 1 tablet Orally 2 times a day Medication List reviewed and reconciled with the patient * Allergies: N .K.D.A.yes[Allergies Verified] Objective: * Vitals: H t: 69, Wt: 155, BMI:22.89, BP:112/64, Wt-k.31. * Examination: G eneral Examination: GENERAL APPEARANCE: a lert, well hydrated, in no distress.? HEAD: n ormocephalic. SKIN: g ood turgor. HEART: n o murmurs, rubs, gallops, regular rate and rhythm.? LUNGS: n o wheezes, rales, rhonchi, good air movement, clear to auscultation bilaterally. Assessment: * Assessment: 1. T ype 2 diabetes mellitus without complication - E11.9 (Primary) [address] scan, chest - R93.89 3 . C urrent smoker - F17.200 4 .?Lymphocytic colitis - K52.832 Plan: * Treatment: Value Reference Range H emoglobin A1c 8.5 ?LAB: Glucose, finger stick (Collection Date & Time - 06/30/2024)* Value Reference Range V alue 175 Notes: patient verbalized understanding of medication and directions for use?? 2.?Abnormal CT scan, chest? Notes: referral to cardiology/ REFFERRAL TO [facility]? Referral To:[facility] [place]??Cardiology ?Reason:ABNORMALCT SCAN 3.?Current smoker? Notes: not wanting to stop??4.?Lymphocytic colitis? Notes: doing well on bidesinide, will continue current regiment?? * Procedure Codes: 8 2947 ASSAY, GLUCOSE, BLOOD QUANT, Modifiers: QW 03166 GLYCATED HEMOGLOBIN TEST, Modifiers: QW * Follow Up: 3 Months * * Sign off status: Completed true * Provider: Chelsie Mark MD Date: 0 06/30/2024 Generated for Mary murray/Yuliana/eTransmitting on: 1 12:12 PM EST History and Physical Notes * HPI (History of Present Illness) Category Sub-Category Detail Notes Category Not es Symptom(s) patient is 74 y o male here for 3 month follow up visit, has had several chest ct/ no significant changes Examination Category Sub-Category Detail Notes Category Not es General Examination GENERAL APPEARANCE: alert, w ell hydrated, in no distress HEAD: normocephalic HEART: no murmurs, rubs, ga llops, regular rate and rhythm LUNGS: no wheezes, rales, r honchi, good air movement, clear to auscultation bilaterally SKIN: good turgor Consultation Request Notes Referral Date Referring Provider Referred Provider Not es 06/30/2024 Jensen Mark HARIHARAN A BNORMAL CT SCAN
--- OUTSIDE RECORDS SUMMARY | 2024-09-23 02:15 | XMS_ITS ---
Author Organization Jensen Mark MD Address [address] [place], [place] [phone] Care Team Providers Care Manager Dental Name Role Phone Jensen Mark Primary Care Provider [phone] Results Component Value Reference Range Notes Liver Panel Reviewed date:09/23/2024 04:37:47 PM Interpretation: Performing Lab:[facility], [address] [place] [phone] Notes/Report: Bilirubin Total 0.5 0.0-1.0 mg/dL Bilirubin Direct 0.2 0.0-0.5 mg/dL Aspartate Amino Transferase 27 5-37 U/L Alanine Aminotransferase 21 0-40 U/L Total Protein 6.7 6.5-8.0 g/dL Albumin Level 4.1 3.5-5.0 g/dL Alkaline Phosphatase 92 39-117 U/L Lipid Panel with Reflex Reviewed date:09/23/2024 04:36:03 PM Interpretation: Performing Lab:[facility], [address] [place] [phone] Notes/Report: Triglycerides 53 <150 mg/dL Desirable Triglyceride: less than 150 mg/dL Borderline High Triglyceride 150-199 mg/dL High Triglyceride: 200-499 mg/dL Very High Triglyceride: greater than or equal to 5OO mg/dL Cholesterol 141 <200 mg/dL Desirable Cholesterol: less than 200 mg/dL Borderline High Cholesterol: 200-239 mg/dL High Cholesterol: greater than 239 mg/dL LDL Cholesterol Calculated 68 <100 mg/dL Desirable LDL: less than 100 mg/dL Near Optimal/Above Optimal LDL: 110-129 mg/dL Borderline High LDL: 130-159 mg/dL High LDL: 160-189 mg/dL Very High LDL: greater than or equal to 190 mg/dL HDL Cholesterol 63 >40 mg/dL Desirable HDL: greater than 40 mg/dL Note: This HDL assay may give artificially low results in patients with liver disease. REASON FOR VISIT fasting lipids Encounters Encounter Location Date Provider Diagnosis Jensen Mark MD [address] [place], [place] [phone] 09/23/2024 Jensen Mark Pure hypercholestero lemia E78.00 Assessments Encounter Date Diagnosis (ICD Code) Assessment Notes Treatment Notes Treatment Clinical Notes Section Notes 09/23/2024 Pure hypercholesterolemia (ICD-10 - E78.00) Plan Of Treatment Next Appt Details Provider Name:Jensen Summers ier, 04/14/2025 09:30:00 AM, [address], [address], [place], [place], [phone], Progress Notes * IVISFrankyDOB:1950 (75 yo M)Acc No.[id number]:09/23/2024 Progress Note Patient: Franky LAKE Provider: Chelsie Mark MD :1950 A ge:74 Y S ex:Male Date:09/23/2024 Address: [address], [place], [id number] Subjective: * Chief Complaints: * 1 . Fasting lipids. * Medical History: Objective: * Vitals: Assessment: * Assessment: 1. P ure hypercholesterolemia - E78.00 (Primary) Plan: * Treatment: * Procedure Codes: 3 6415 VENIPUNCT, ROUTINE* * * The named appointment provid er may or may not be the originator of this progress note, and it is not deemed complete until electronically signed by the appointment provider. Sign off status: Pending * Provider: Chelsie Mark MD Date: 0 09/23/2024 Generated for Mary murray/Yuliana/Gm on: 1 12:13 PM EST
--- OUTSIDE RECORDS SUMMARY | 2024-09-30 05:15 | XMS_ITS ---
Author Organization Jensen Mark MD Address [address] [place], [place] [id number] Care Team Providers Care Swinging Cut Off Saw Operator Name Role Phone Jensen Mark Primary Care Provider Allergies No Known Allergies Results Component Value Reference Range Notes Hemoglobin A1c Reviewed date:09/30/2024 10:21:47 AM Interpretation: Performing Lab: Notes/Report: Hemoglobin A1c 8.6 Glucose, finger stick Reviewed date:09/30/2024 10:17:34 AM Interpretation: Performing Lab: Notes/Report: Value 365 REASON FOR VISIT 6 month Medications Medication SIG (Take, Route, Frequency, Duration) Notes Start Date End Date Status Ibuprofen 800 MG 1 tablet Orally as [...] a day for 30 day(s) 12/13/2018 Not-Taking Cyclobenzaprine HCl 5 MG 1 tablet as nee ded Orally Three times a day for 10 days 05/31/2019 Not-Taking metFORMIN HCl 1000 MG TAKE ONE TABLET BY MOUTH TWICE A DAY WITH MEALS ORALLY Active Chantix Starting Month Maverick 0.5 MG X 11 & 1 MG X 42 as directed Orally one tab twice a day for 30 days 05/20/2019 Not-Taking Irbesartan 150 MG TAKE 1 TABLET BY TAY TH EVERY DAY Active Atorvastatin Calcium 80 MG TAKE 1 TABLET BY MOUTH EVERY DAY Active Gabapentin 300 MG 1 capsule Orally Onc e a day for 30 days 09/30/2024 Active Escitalopram Oxalate 20 MG TAKE 1 TABLET BY MOUTH EVERY DAY Active Tamsulosin HCl 0.4 MG TAKE ONE CAPSULE B Y MOUTH TWICE A DAY ORALLY TWICE A DAY 90 DAYS Active Budesonide 3 MG 2 capsules Orally On ce a day for 30 day(s) Active Lantus SoloStar 100 UNIT/ML as directed 10 units Subcutaneous daily for 90 days 09/30/2024 Active Problems Problem Type SNOMED Code ICD Code Onset Dates Problem Status W/U Status Risk Notes Problem Neuropathy ([id number]) Neuropathy (G62.9) Active confirmed Vital Signs Blood pressure systolic 104 mm Hg 10/01/19 25 Blood pressure diastolic 56 mm Hg 025 Height 69 in 09/30/2024 Weight 159 lbs 09/30/2024 BMI 23.48 kg/m2 09/30/2024 weight is up 4 pounds since 06-30-24 Encounters Encounter Location Date Provider Diagnosis Jensen Mark MD [address] [place] [address] [place] [phone] 09/30/2024 Jensen Mark Type 2 diabetes hi itus without complication E11.9 ; Neuropathy G62.9 ; Essential hypertension I10 and Pure hypercholesterolemia E78.00 Assessments Encounter Date Diagnosis (ICD Code) Assessment Notes Treatment Notes Treatment Clinical Notes Section Notes 09/30/2024 Type 2 diabetes mellitus without complication (ICD-10 - E11.9) sugar high today but had just eaten a bagel., patient verbalized understanding of medication and directions for use 09/30/2024 Neuropathy (ICD-10 - G62.9) patient verbalized understanding of medication and directins for use 09/30/2024 Essential hypertensi on (ICD-10 - I10) stable, will continue current regiment 09/30/2024 Pure hypercholesterolemia (ICD-10 - E78.00) stable, will continue current regiment Plan Of Treatment Medication Medication Name Sig Start Date Stop Date Notes metFORMIN HCl 1000 MG TAKE ONE TABLET BY MOUTH TWICE A DAY WITH MEALS ORALLY Irbesartan 150 MG TAKE 1 TABLET BY TAY TH EVERY DAY Atorvastatin Calcium 80 MG TAKE 1 TABLET BY MOUTH EVERY DAY Gabapentin 300 MG 1 capsule Orally Onc e a day for 30 days 09/30/2024 Lantus SoloStar 100 UNIT/ML as directed 10 units Subcutaneous daily for 90 days 09/30/2024 Treatment Notes Assessment Notes Type 2 diabetes mellitus without complic ation sugar high today but had just eaten a bagel., patient verbalized understanding of medication and directions for use Neuropathy patient verbalized u nderstanding of medication and directins for use Essential hypertension stable, will cont inue current regiment Pure hypercholesterolemia stable, will c ontinue current regiment Next Appt Details Follow Up: 4 Weeks, Reason: Provider Name:Jensen Summers ier, 04/14/2025 09:30:00 AM, [address] [place] [address], [address], [place], [place], [phone], Progress Notes * Franky WADEDOB:1950 (74 yo M)Acc No.[id number]:09/30/2024 Progress Notes Patient: Franky LAKE Provider: Chelsie Mark MD :1950 A ge:74 Y S ex:Male Date:09/30/2024 Address: [address], [id number] Subjective: * Chief Complaints: * 6 month * HPI: S ymptom(s): patient os a 74 yo male here for 6 month follow up visit/ he says thinks he is losing short term memory/ had a calcium score that was high and is seeing cardiologis. * ROS: G eneral/Constitutional: Denies C hills. D enies F atigue. D enies F ever. D enies H eadache. E NT: Denies S ore throat. E ndocrine: Denies D ifficulty sleeping. D enies D izziness.?Denies E xcessive sweating. D enies E xcessive thirst. D enies F requent urination. R espiratory: Denies Cj ough. D enies S hortness of breath at rest. D enies S hortness of breath with exertion. G astrointestinal: Dengayla Santiago iarrhea. D enies N ausea. h aving some nerve pain in rt arm. * Medical History: * Surgical History: * Hospitalization/Major Diagno stic Procedure: * Medications: T akingBudesonide 3 MG Capsule Delayed Release Particles 2 capsules Orally Once a day Escitalopram Oxalate 20 MG Tablet TAKE 1 TABLET BY MOUTH EVERY DAY Tamsulosin HCl 0.4 MG Capsule TAKE ONE CAPSULE BY MOUTH TWICE A DAY ORALLY TWICE A DAY 90 DAYS metFORMIN HCl 1000 MG Tablet TAKE ONE TABLET BY MOUTH TWICE A DAY WITH MEALS ORALLY Irbesartan 150 MG Tablet TAKE 1 TABLET BY MOUTH EVERY DAY Atorvastatin Calcium 80 MG Tablet TAKE 1 TABLET BY MOUTH EVERY DAY Taking Budesonide 3 MG Capsule Delayed Release Particles 2 capsules Orally Once a day Taking Escitalopram Oxalate 20 MG Tablet TAKE 1 TABLET BY MOUTH EVERY DAY Taking Tamsulosin HCl 0.4 MG Capsule TAKE ONE CAPSULE BY MOUTH TWICE A DAY ORALLY TWICE A DAY 90 DAYS Taking metFORMIN HCl 1000 MG Tablet TAKE ONE TABLET BY MOUTH TWICE A DAY WITH MEALS ORALLY Taking Irbesartan 150 MG Tablet TAKE 1 TABLET BY MOUTH EVERY DAY Taking Atorvastatin Calcium 80 MG Tablet TAKE [...] 1 tablet Orally 2 times a day Not-Taking/PRN Cyclobenzaprine HCl 5 MG Tablet 1 [...] 1 tablet Orally 2 times a day DiscontinuedFarxiga 5 MG Tablet 1 tablet Orally Once a day Medication List reviewed and reconciled with the patientDiscontinued Farxiga 5 MG Tablet 1 tablet Orally Once a day Medication List reviewed and reconciled with the patient * Allergies: N .K.D.A.yes[Allergies Verified] Objective: * Vitals: H t: 69, Wt: 159, BMI:23.48, BP:104/56, Wt-k.12. weight is up 4 pounds since 06-30-24. * Examination: G eneral Examination: GENERAL APPEARANCE: p leasant, in no acute distress. HEAD: n ormocephalic. SKIN: g ood turgor. HEART: r egular rate and rhythm, no murmurs, rubs, gallops.? LUNGS: n o wheezes, rales, rhonchi, good air movement, clear to auscultation bilaterally. Assessment: * Assessment: 1. T ype 2 diabetes mellitus without complication - E11.9 (Primary) 2 . N europathy - G62.9 3 . E ssential hypertension - I10 4 . P ure hypercholesterolemia - E78.00 Plan: * Treatment: Value Reference Range H emoglobin A1c 8.6 ?LAB: Glucose, finger stick (Collection Date & Time - 09/30/2024)* Value Reference Range V alue 365 Notes: sugar high today but had just eaten a bagel., patient verbalized understanding of medicationand directions for use??2.?Neuropathy? Start Gabapentin Capsule, 300 MG, 1 capsule, Orally, Once a day, 30 days, 30, Refills 5.?? Notes: patient verbalized understanding of medication and directins for use?? 3.?Essential hypertension? Continue Irbesartan Tablet, 150 MG, TAKE 1 TABLET BY MOUTH EVERY DAY.?? Notes: stable, will continue current regiment??4.?Pure hypercholesterolemia? Continue Atorvastatin Calcium Tablet, 80 MG, TAKE 1 TABLET BY MOUTH EVERY DAY.?? Notes: stable, will continue current regiment?? * Procedure Codes: 8 2947 ASSAY, GLUCOSE, BLOOD QUANT, Modifiers: QW 55050 GLYCATED HEMOGLOBIN TEST, Modifiers: QW * Follow Up: 4 Weeks * * Sign off status: Completed true * Provider: Chelsie Mark MD Date: 0 09/30/2024 Generated for Mary murray/Yuliana/Yuesmitting on: 1 12:12 PM EST History and Physical Notes * HPI (History of Present Illness) Category Sub-Category Detail Notes Category Not es Symptom(s) patient os a 74 yo male here for 6 month follow up visit/ he says thinks he is losing short term memory/ had a calcium score that was high and is seeing cardiologis Examination Category Sub-Category Detail Notes Category Not es General Examination GENERAL APPEARANCE: pleasant, in n o acute distress HEAD: normocephalic HEART: regular rate and rhy thm, no murmurs, rubs, gallops LUNGS: no wheezes, rales, r honchi, good air movement, clear to auscultation bilaterally SKIN: good turgor
--- OUTSIDE RECORDS SUMMARY | 2024-10-03 11:15 | XMS_ITS ---
Author Organization Jensen Mark MD Address [address] [place] [phone] Care Team Providers Care Ginseng Farmer Name Role Phone Jensen Mark Primary Care Provider Allergies No Known Allergies REASON FOR VISIT 3 MO F/U Encounters Encounter Location Date Provider Diagnosis Jensen Mark MD 10 [facility] [address] [place] [phone] 10/03/2024 Jensen Mark Plan Of Treatment Next Appt Details Provider Name:Jensen Summers ier, 04/14/2025 09:30:00 AM, [address], [address] [place] [address], [phone], Progress Notes * Franky WADEDOB:1950 (75 yo M)Acc No.[id number]:10/03/2024 Progress Notes Patient: Franky LAKE Provider: Chelsie Mark MD :1950 A ge:74 Y S ex:Male Date:10/03/2024 Address:[address], [id number] Subjective: * Chief Complaints: * 1 . 3 MO F/U. * Medical History: c olonoscopy 09/2006 - repeat 10 years; colonoscopy booked w/Dr. Ramirez for 03/20/17( pt cx and has not rebooked); had negative cologuard on 05/29/19). Colonoscopy 07/07/22 pending path. * Allergies: N .K.D.A. Objective: * Vitals: * P ast Orders: L ab:Liver Panel (Order Date - 09/23/2024) (Collection Date & Time - 09/23/2024 07:15 AM) Value Reference Range Bilirubin Total 0.5 0.0-1.0 - mg/dL Bilirubin Direct 0.2 0.0-0.5 - mg/dL Aspartate Amino Transferase 27 5-37 - U/L Alanine Aminotransferase 21 0-40 - U/L Total Protein 6.7 6.5-8.0 - g/dL Albumin Level 4.1 3.5-5.0 - g/dL Alkaline Phosphatase 92 39-117 - U/L L ab:Lipid Panel with Reflex (Order Date - 09/23/2024) (Collection Date & Time - 09/23/2024 07:15 AM) Value Reference Range Triglycerides 53 <150 - mg/dL Cholesterol 141 <200 - mg/dL LDL Cholesterol Calculated 68 <100 - mg/dL HDL Cholesterol 63 >40 - mg/dL L ab:Hemoglobin A1c (Order Date - 06/30/2024) (Collection Date & Time - 06/30/2024) Value Reference Range Hemoglobin A1c 8.5 Assessment: Plan: * Treatment: * * The named appointment provid er may or may not be the originator of this progress note, and it is not deemed complete until electronically signed by the appointment provider. Sign off status: Pending * Provider: Chelsie Makr MD Date: 0 10/03/2024 Generated for Mary murray/Yuliana/Gm on: 1 12:11 PM EST
--- OUTSIDE RECORDS SUMMARY | 2024-10-04 06:40 | XMS_ITS ---
Author Organization Jensen Mark MD Address [address] [place], [place] [phone] Care Team Providers Care Propeller Mechanic Name Role Phone Jensen Mark Primary Care Provider REASON FOR VISIT lantus Encounters Encounter Location Date Provider Diagnosis Jensen Mark MD [address] [place] [phone] 10/04/2024 Jensen Mark Plan Of Treatment Next Appt Details Provider Name:Jensen Summers ier, 04/14/2025 09:30:00 AM, [address], [address], [place], [place], [phone], Progress Notes * Franky WADEDOB:1950 (74 yo M)Acc No.[id number]:10/04/2024 Patient: Laura NAIRFranky :1950 A ge:74 Y S ex:Male Address:[address], [place] [address] * true * Date: Generated for Printi ng/Faxing/eTransmitting on: 1 12:11 PM EST
--- OUTSIDE RECORDS SUMMARY | 2024-10-27 08:45 | XMS_ITS ---
Author Organization Jensen Mark MD Address [address] [place], [place] [phone] Care Team Providers Care Data Coordinator Name Role Phone Jensen Mark Primary Care Provider [phone] Allergies No Known Allergies Results Component Value Reference Range Notes Glucose, finger stick Reviewed date:10/27/2024 01:41:55 PM Interpretation: Performing Lab: Notes/Report: Value 325 REASON FOR VISIT 4 WK F/U Medications Medication SIG (Take, Route, Frequency, Duration) Notes Start Date End Date Status Cyclobenzaprine HCl 5 MG 1 tablet as nee ded Orally Three times a day for 10 days 05/31/2019 Not-Taking Escitalopram Oxalate 20 MG TAKE 1 TABLET BY MOUTH EVERY DAY for 90 Active Viagra 100 MG 1 tablet as needed Orally Once a day for 30 day(s) 11/13/2017 Not-Taking Chantix Starting Month Maverick 0.5 MG X 11 & 1 MG X 42 as directed Orally one tab twice a day for 30 days 05/20/2019 Not-Taking Chantix Continuing Month Maverick 1 MG as directed Orally twice a day for 30 days 05/20/2019 Not-Taking Lantus SoloStar 100 UNIT/ML as directed 14 units Subcutaneous daily 09/30/2024 Active metFORMIN HCl 1000 MG TAKE ONE TABLET BY MOUTH TWICE A DAY WITH MEALS ORALLY Active Irbesartan 150 MG TAKE 1 TABLET BY TAY TH EVERY DAY Active Atorvastatin Calcium 80 MG TAKE 1 TABLET BY MOUTH EVERY DAY Active Gabapentin 300 MG 1 capsule Orally Onc e a day for 30 days 09/30/2024 Active Budesonide 3 MG 2 capsules Orally On ce a day for 30 day(s) Active Tamsulosin HCl 0.4 MG TAKE ONE CAPSULE B Y MOUTH TWICE A DAY ORALLY TWICE A DAY 90 DAYS Active Flonase Allergy Relief 50 MCG/ACT 1 spray in each nostril Nasally Once a day for 30 day(s) 12/13/2018 Not-Taking Ibuprofen 800 MG 1 tablet Orally as needed for 30 Not-Taking Cyclobenzaprine HCl 5 MG 1 tablet Orally 2 times a day for 30 days Not-Taking Vital Signs Blood pressure systolic 102 mm Hg 10/28/19 25 Blood pressure diastolic 54 mm Hg 025 Height 69 in 10/27/2024 Weight 159 lbs 10/27/2024 BMI 23.48 kg/m2 10/27/2024 Encounters Encounter Location Date Provider Diagnosis Jensen Mark MD [address] [place] [address] [place] [address] [phone] 10/27/2024 Jensen Mark Type 2 diabetes mellitus without complication E11.9 Assessments Encounter Date Diagnosis (ICD Code) Assessment Notes Treatment Notes Treatment Clinical Notes Section Notes 10/27/2024 Type 2 diabetes mellitus without complication (ICD-10 - E11.9) Plan Of Treatment Medication Medication Name Sig Start Date Stop Date Notes Lantus SoloStar 100 UNIT/ML as directed 14 units Subcutaneous daily 09/30/2024 Next Appt Details Follow Up: 2 Months, Reason: Provider Name:Jensen Summers ier, 04/14/2025 09:30:00 AM, [address] [place] [address], [address], [place], [place], [phone], Progress Notes * Franky WADEDOB:1950 (74 yo M)Acc No.[id number]:10/27/2024 Progress Notes Patient: Franky LAKE Provider: Chelsie Mark MD :1950 A ge:74 Y S ex:Male Date:10/27/2024 Address: [address], [place], [id number] Subjective: * Chief Complaints: * 4 WK F/U * HPI: S ymptom(s): patient is a 74 yo male here for 4 week follow up visit/ started insulin last visit. * ROS: G eneral/Constitutional: Denies [place]. [...] Particles 2 capsules Orally Once a day Tamsulosin HCl 0.4 MG Capsule TAKE ONE CAPSULE BY MOUTH TWICE A DAY ORALLY TWICE A DAY 90 DAYS Lantus SoloStar 100 UNIT/ML Solution Pen-injector as directed 10 units Subcutaneous daily Gabapentin 300 MG Capsule 1 capsule Orally Once a day metFORMIN HCl 1000 MG Tablet TAKE ONE [...] 2 capsules Orally Once a day Taking Tamsulosin HCl 0.4 MG Capsule TAKE ONE CAPSULE BY MOUTH TWICE A DAY ORALLY TWICE A DAY 90 DAYS Taking Lantus SoloStar 100 UNIT/ML Solution Pen- injector as directed 10 units Subcutaneous daily Taking Gabapentin 300 MG Capsule 1 capsule Orally Once a day Taking metFORMIN HCl 1000 MG Tablet TAKE [...] as needed Orally Three times a day Rosmeryx Starting Month Maverick 0.5 MG X 11 [...] Medication List reviewed and reconciled with the patientNot- Taking/PRN Cyclobenzaprine HCl 5 MG Tablet 1 tablet [...] Vitals: H t: 69, Wt: 159, BMI:23.48, BP:102/54, Wt-k.12. * Examination: G eneral Examination: GENERAL APPEARANCE: a lert, well hydrated, in no distress.? HEAD: n ormocephalic. SKIN: g ood turgor. HEART: n o murmurs, rubs, gallops, regular rate and rhythm.? LUNGS: n o wheezes, rales, rhonchi, good air movement, clear to auscultation bilaterally. Assessment: * Assessment: 1. T ype 2 diabetes mellitus without complication - E11.9 (Primary) Plan: * Treatment: Value Reference Range V alue 325 * Procedure Codes: 8 2947 ASSAY, GLUCOSE, BLOOD QUANT, Modifiers: QW * Follow Up: 2 Months * * Sign off status: Completed true * Provider: Chelsie Mark MD Date: 0 10/27/2024 Generated for Mary murray/Yuliana/Gm on: 1 12:11 PM EST History and Physical Notes * HPI (History of Present Illness) Category Sub-Category Detail Notes Category Not es Symptom(s) patient is a 74 yo male here for 4 week follow up visit/ started insulin last visit Examination Category Sub-Category Detail Notes Category Not es General Examination GENERAL APPEARANCE: alert, w ell hydrated, in no distress HEAD: normocephalic HEART: no murmurs, rubs, ga llops, regular rate and rhythm LUNGS: no wheezes, rales, r honchi, good air movement, clear to auscultation bilaterally SKIN: good turgor
--- OUTSIDE RECORDS SUMMARY | 2024-12-29 05:45 | XMS_ITS ---
Author Organization Jensen Mark MD Address [address] [place], [place] [phone] Care Team Providers Care Call Center Recruiter Name Role Phone Jensen Mark Primary Care Provider Allergies No Known Allergies Results Component Value Reference Range Notes Hemoglobin A1c Reviewed date:12/29/2024 10:40:09 AM Interpretation: Performing Lab: Notes/Report: Hemoglobin A1c 7.5 Glucose, finger stick Reviewed date:12/29/2024 10:33:43 AM Interpretation: Performing Lab: Notes/Report: Value 110 REASON FOR VISIT 2 MO FU Medications Medication SIG (Take, Route, Frequency, Duration) Notes Start Date End Date Status Gabapentin 300 MG 1 capsule Orally Onc e a day for 30 days 09/30/2024 Active Lantus SoloStar 100 UNIT/ML as directed 14 units Subcutaneous daily 09/30/2024 Active Escitalopram Oxalate 20 MG TAKE 1 TABLET BY MOUTH EVERY DAY for 90 Active Atorvastatin Calcium 80 MG TAKE 1 TABLET BY MOUTH EVERY DAY Active Tamsulosin HCl 0.4 MG TAKE 1 CAPSULE BY MOUTH TWICE A DAY for 90 Active Flonase Allergy Relief 50 MCG/ACT 1 spray in each nostril Nasally Once a day for 30 day(s) 12/13/2018 Not-Taking Budesonide 3 MG 2 capsules Orally On ce a day for 30 day(s) Active Viagra 100 MG 1 tablet as needed Orally Once a day for 30 day(s) 11/13/2017 Not-Taking Cyclobenzaprine HCl 5 MG 1 tablet Orally 2 times a day for 30 days Not-Taking Ibuprofen 800 MG 1 tablet Orally as needed for 30 Not-Taking metFORMIN HCl 1000 MG TAKE ONE TABLET BY MOUTH TWICE A DAY WITH MEALS Active Irbesartan 150 MG TAKE 1 TABLET BY TAY TH EVERY DAY Active Chantix Continuing Month Maverick 1 MG as directed Orally twice a day for 30 days 05/20/2019 Not-Taking Chantix Starting Month Maverick 0.5 MG X 11 & 1 MG X 42 as directed Orally one tab twice a day for 30 days 05/20/2019 Not-Taking Cyclobenzaprine HCl 5 MG 1 tablet as nee ded Orally Three times a day for 10 days 05/31/2019 Not-Taking Immunizations Vaccine Route Administration Date Status Comme nts Influenza High Dose Unknown 12/29/2024 Refused Vital Signs Blood pressure systolic 122 mm Hg 12/30/19 25 Blood pressure diastolic 60 mm Hg 025 Height 69 in 12/29/2024 Weight 159 lbs 12/29/2024 BMI 23.48 kg/m2 12/29/2024 Encounters Encounter Location Date Provider Diagnosis Jensen Mark MD [address] [place], [place] [phone] 12/29/2024 Jensen Mark Type 2 diabetes mellitus without complication E11.9 ; Essential hypertension I10 and Abnormal stress test R94.39 Assessments Encounter Date Diagnosis (ICD Code) Assessment Notes Treatment Notes Treatment Clinical Notes Section Notes 12/29/2024 Type 2 diabetes mellitus without complication (ICD-10 - E11.9) will continue curent regiment 12/29/2024 Essential hypertension (ICD-10 - I10) stable, will continue current regiment 12/29/2024 Abnormal stress test (ICD-10 - R94.39) followed by cardiology Plan Of Treatment Medication Medication Name Sig Start Date Stop Date Notes Lantus SoloStar 100 UNIT/ML as directed 14 units Subcutaneous daily 09/30/2024 metFORMIN HCl 1000 MG TAKE ONE TABLET BY MOUTH TWICE A DAY WITH MEALS Irbesartan 150 MG TAKE 1 TABLET BY TAY TH EVERY DAY Treatment Notes Assessment Notes Type 2 diabetes mellitus without complic ation will continue curent regiment Essential hypertension stable, will cont inue current regiment Abnormal stress test followed by cardiol ananth Next Appt Details Follow Up: 4 Weeks, Reason: Provider Name:Jensenjames Summers ier, 04/14/2025 09:30:00 AM, [address], [address], [place], [phone], Progress Notes * Franky WADEDOB:1950 (74 yo M)Acc No.[id number]:12/29/2024 Progress Notes Patient: Franky LAKE Provider: Chelsie Mark MD :1950 A ge:74 Y S ex:Male Date:12/29/2024 Address: [address], [place], [id number] Subjective: * Chief Complaints: * 2 MO FU * HPI: S ymptom(s): patient is a 74 yo male here for 2 month follow up visit/ getting hypoglycemic in after noon if he doesn't eat on time. if work gets in the way. * ROS: G eneral/Constitutional: Denies C hills. [...] Particles 2 capsules Orally Once a day Gabapentin 300 MG Capsule 1 capsule Orally Once a day Atorvastatin Calcium 80 MG Tablet TAKE 1 TABLET BY MOUTH EVERY DAY Escitalopram Oxalate 20 MG Tablet TAKE 1 TABLET BY MOUTH EVERY DAY Lantus SoloStar 100 UNIT/ML Solution Pen-injector as directed 14 units Subcutaneous daily Irbesartan 150 MG Tablet TAKE 1 TABLET BY MOUTH EVERY DAY metFORMIN HCl 1000 MG Tablet TAKE ONE TABLET BY MOUTH TWICE A DAY WITH MEALS Tamsulosin HCl 0.4 MG Capsule TAKE 1 CAPSULE BY MOUTH TWICE A DAY Taking Budesonide 3 MG Capsule Delayed Release Particles 2 capsules Orally Once a day Taking Gabapentin 300 MG Capsule 1 capsule Orally Once a day Taking Atorvastatin Calcium 80 MG Tablet TAKE 1 TABLET BY MOUTH EVERY DAY Taking Escitalopram Oxalate 20 MG Tablet TAKE 1 TABLET BY MOUTH EVERY DAY Taking Lantus SoloStar 100 UNIT/ML Solution Pen-injector as directed 14 units Subcutaneous daily Taking Irbesartan 150 MG Tablet TAKE 1 TABLET BY MOUTH EVERY DAY Taking metFORMIN HCl 1000 MG Tablet TAKE ONE TABLET BY MOUTH TWICE A DAY WITH MEALS Taking Tamsulosin HCl 0.4 MG Capsule TAKE 1 CAPSULE BY MOUTH TWICE A DAY Not-Taking/PRNCyclobenzaprine HCl 5 MG Tablet 1 [...] Vitals: H t: 69, Wt: 159, BMI:23.48, BP:122/60, Wt-k.12. * Examination: G eneral Examination: GENERAL APPEARANCE: a lert, well hydrated, in no distress.? HEAD: n ormocephalic. SKIN: g ood turgor. HEART: r egular rate and rhythm, no murmurs, rubs, gallops.? LUNGS: n o wheezes, rales, rhonchi but with smoker cough.? Assessment: * Assessment: 1. T ype 2 diabetes mellitus without complication - E11.9 (Primary) 2 . E ssential hypertension - I10 3 . A bnormal stress test - R94.39 Plan: * Treatment: Value Reference Range H emoglobin A1c 7.5 ?LAB: Glucose, finger stick (Collection Date & Time - 12/29/2024)* Value Reference Range V alue 110 Notes: will continue curent regiment??2.?Essential hypertension? Continue Irbesartan Tablet, 150 MG, TAKE 1 TABLET BY MOUTH EVERY DAY.?? Notes: stable, will continue current regiment??3.?Abnormal stress test? Notes: followed by cardiology?? * Immunizations: Influenza High Dose (Not administered - Refused: Patient decision) * Procedure Codes: 8 2947 ASSAY, GLUCOSE, BLOOD QUANT, Modifiers: QW 42825 GLYCATED HEMOGLOBIN TEST, Modifiers: QW G2211 Complex e/m visit add on * Preventive Medicine: Diabetes Care Plan: P atient Lifestyle Goals N eeds to maintain diet control.?Treatment Goals A 1C< 7. B arriers N o specific barriers, doing well. S elf-Managment Plan I ncrease light exercise to 3 times a week for 30 minutes. E xpected Outcome maintaining stable blood sugar levels within a target range. * Follow Up: 4 Weeks * * Sign off status: Completed true * Provider: Chelsie Mark MD Date: 0 12/29/2024 Generated for Mary murray/Yuliana/eTraymundoitting on: 1 12:12 PM EST History and Physical Notes * HPI (History of Present Illness) Category Sub-Category Detail Notes Category Not es Symptom(s) patient is a 74 yo male here for 2 month follow up visit/ getting hypoglycemic in after noon if he doesn't eat on time. if work gets in the way Examination Category Sub-Category Detail Notes Category Not es General Examination GENERAL APPEARANCE: alert, w ell hydrated, in no distress HEAD: normocephalic HEART: regular rate and rhy thm, no murmurs, rubs, gallops LUNGS: no wheezes, rales, r honchi but with smoker cough SKIN: good turgor
--- OUTSIDE RECORDS SUMMARY | 2025-01-02 04:30 | XMS_ITS ---
Author Organization Jensen Mark MD Address [address] [place], [place] [phone] Care Team Providers Care Sample Hand Name Role Phone Jensen Mark Primary Care Provider [phone] REASON FOR VISIT refill Lantus Medications Medication SIG (Take, Route, Frequency, Duration) Notes Start Date End Date Status Lantus SoloStar 100 UNIT/ML as directed 14 units Subcutaneous daily for 90 days 09/30/2024 Active Encounters Encounter Location Date Provider Diagnosis Jensen Mark MD [address] [place], [place] [phone] 01/02/2025 Jensen Mark Type 2 diabetes mellitus without complication E11.9 Assessments Encounter Date Diagnosis (ICD Code) Assessment Notes Treatment Notes Treatment Clinical Notes Section Notes 01/02/2025 Type 2 diabetes mellitus without complication (ICD-10 - E11.9) Plan Of Treatment Medication Medication Name Sig Start Date Stop Date Notes Lantus SoloStar 100 UNIT/ML as directed 14 units Subcutaneous daily for 90 days 09/30/2024 Next Appt Details Provider Name:Jensen wade, 04/14/2025 09:30:00 AM, [address], [address], [place], [place], [phone], Progress Notes * Antolin WADE:1950 (74 yo M)Acc No.[id number]:01/02/2025 Patient: Franky LAKE :1950 A ge:74 Y S ex:Male Address:[address], [place] [address] * Refills Refill Lantus SoloStar Solution Pen-injector, 100 UNIT/ML, Subcutaneous, 20, as directed 14 units, daily, 90 days * true * Date: Generated for Mary mruray/Yuliana/eTransmitting on: 1 12:11 PM EST
--- OUTSIDE RECORDS SUMMARY | 2025-02-02 05:00 | XMS_ITS ---
Author Organization Jensen Mark MD Address [address] [place], [place] [id number] Care Team Providers Care Market Research Worker Name Role Phone Jensen Mark Primary Care Provider [phone] Allergies No Known Allergies Results Component Value Reference Range Notes Glucose, finger stick Reviewed date:02/02/2025 09:54:06 AM Interpretation: Performing Lab: Notes/Report: Value 274 REASON FOR VISIT 1 MO F/U Medications Medication SIG (Take, Route, Frequency, Duration) Notes Start Date End Date Status Irbesartan 150 MG TAKE 1 TABLET BY EVERY DAY Active Viagra 100 MG 1 tablet as [...] MOUTH TWICE A DAY for 90 Active Escitalopram Oxalate 20 MG TAKE 1 TABLET BY MOUTH EVERY DAY for 90 Active Atorvastatin Calcium 80 MG TAKE 1 TABLET BY MOUTH EVERY DAY Active Gabapentin 300 MG 1 capsule Orally Onc e a day for 30 days 09/30/2024 Active Budesonide 3 MG 2 capsules Orally On ce a day for 30 day(s) Active Cyclobenzaprine HCl 5 MG 1 tablet Orally 2 times a day for 30 days Not-Taking Ibuprofen 800 MG 1 tablet Orally as needed for 30 Not-Taking Flonase Allergy Relief 50 MCG/ACT 1 spray in each nostril Nasally Once a day for 30 day(s) 12/13/2018 Not-Taking Lantus SoloStar 100 UNIT/ML as directed 14 units Subcutaneous daily 09/30/2024 Active metFORMIN HCl 1000 MG TAKE ONE TABLET BY MOUTH TWICE A DAY WITH MEALS Active Immunizations Vaccine Route Administration Date Status Comme nts Influenza High Dose Unknown 02/02/2025 Refused Problems Problem Type SNOMED Code ICD Code Onset Dates Problem Status W/U Status Risk Notes Problem Coronary artery disease (62790174) Coronary artery disease (I25.10) Active confirmed Vital Signs Blood pressure systolic 130 mm Hg 02/03/20 25 Blood pressure diastolic 74 mm Hg 025 Height 69 in 02/02/2025 Weight 163 lbs 02/02/2025 BMI 24.07 kg/m2 02/02/2025 weight is up 4 pounds since 12-29-24 Encounters Encounter Location Date Provider Diagnosis Jensen Mark MD [address] [place] [address] [address] [place], [place] [id number] 02/02/2025 Jensen Mark Type 2 diabetes mellitus without complication E11.9 ; Panlobular emphysema J43.1 ; Current smoker F17.200 and Coronary artery disease I25.10 Assessments Encounter Date Diagnosis (ICD Code) Assessment Notes Treatment Notes Treatment Clinical Notes Section Notes 02/02/2025 Type 2 diabetes mellitus without complication (ICD-10 - E11.9) is doing okay/ has not been checking sugars, will contonue current regiment 02/02/2025 Panlobular emphysema (ICD-10 - J43.1) shortness of breath is related to his copd 02/02/2025 Current smoker (ICD-10 - F17.200) is trying to quit. every week take 2 out of the pack/ doing it with . 02/02/2025 Coronary artery disease (ICD-10 - I25.10) has a totally occluded rt coronary and others not in need of therapy Plan Of Treatment Medication Medication Name Sig Start Date Stop Date Notes Lantus SoloStar 100 UNIT/ML as directed 14 units Subcutaneous daily 09/30/2024 metFORMIN HCl 1000 MG TAKE ONE TABLET BY MOUTH TWICE A DAY WITH MEALS Treatment Notes Assessment Notes Type 2 diabetes mellitus wit hout complication is doing okay/ has not been checking sugars, will contonue current regiment Panlobular emphysema shortness of breath is related to his copd Current smoker is trying to quit. e very week take 2 out of the pack/ doing it with . Coronary artery disease has a totally oc cluded rt coronary and others not in need of therapy Next Appt Details Provider Name:Jensen Wanda Virgiefaby ier, 04/14/2025 09:30:00 AM, [address] [place] [address], [address], [place], [place], [phone], Progress Notes * IVIS FrankyDOB:1950 (74 yo M)Acc No.[id number]:02/02/2025 Progress Notes Patient: Franky LAKE Provider: Chelsie Mark MD :1950 A ge:74 Y S ex:Male Date:02/02/2025 Address: [address], [id number] Subjective: * Chief Complaints: * 1 MO F/U * HPI: S ymptom(s): patient is a 74 yo male here for one month follow up visit/ does get short of breath with long working. * ROS: G eneral/Constitutional: Denies C hills. [...] DAY Tamsulosin HCl 0.4 MG Capsule TAKE 1 CAPSULE BY MOUTH TWICE A DAY Irbesartan 150 MG Tablet TAKE 1 TABLET BY MOUTH EVERY DAY metFORMIN HCl 1000 MG Tablet TAKE ONE TABLET BY MOUTH TWICE A DAY WITH MEALS Lantus SoloStar 100 UNIT/ML Solution Pen-injector as directed 14 units Subcutaneous daily Taking Budesonide 3 MG Capsule Delayed Release [...] CAPSULE BY MOUTH TWICE A DAY Taking Irbesartan 150 MG Tablet TAKE 1 TABLET BY MOUTH EVERY DAY Taking metFORMIN HCl 1000 MG Tablet TAKE ONE TABLET BY MOUTH TWICE A DAY WITH MEALS Taking Lantus SoloStar 100 UNIT/ML Solution Pen-injector as directed 14 units Subcutaneous daily Not-Taking/PRNCyclobenzaprine HCl 5 MG Tablet 1 tablet [...] Objective: * Vitals: H t: 69, Wt: 163, BMI:24.07, BP:130/74, Wt-k.94. weight is up 4 pounds since 12-29-24. * Examination: G eneral Examination: GENERAL APPEARANCE: a lert, well hydrated, in no distress.? HEAD: n ormocephalic. SKIN: g ood turgor. HEART: n o murmurs, rubs, gallops, regular rate and rhythm.? LUNGS: n o wheezes, rales, rhonchi, good air movement, clear to auscultation bilaterally. Assessment: * Assessment: 1. T ype 2 diabetes mellitus without complication - E11.9 (Primary) 2 . P anlobular emphysema - J43.1 3 . C urrent smoker - F17.200 4 .?Coronary artery disease - I25.10 Plan: * Treatment: Value Reference Range V alue 274 Notes: is doing okay/ has not been checking sugars, will contonue current regiment??2.?Panlobular emphysema? Notes: shortness of breath is related to his copd??3.?Current smoker? Notes: is trying to quit. every week take 2 out of the pack/ doing it with .??4.?Coronary artery disease? Notes: has a totally occluded rt coronary and others not in need of therapy?? * Immunizations: Influenza High Dose (Not administered - Refused: Patient decision) * Procedure Codes: 8 2947 ASSAY, GLUCOSE, BLOOD QUANT, Modifiers: QW G2211 Complex e/m visit add on * * Sign off status: Completed true * Provider: Chelsie Mark MD Date: Generated for Mary murray/Yuliana/eTransmitting on: 1 12:12 PM EST History and Physical Notes * Examination Category Sub-Category Detail Notes Category Not es General Examination GENERAL APPEARANCE: alert, w ell hydrated, in no distress HEAD: normocephalic HEART: no murmurs, rubs, ga llops, regular rate and rhythm LUNGS: no wheezes, rales, r honchi, good air movement, clear to auscultation bilaterally SKIN: good turgor
--- OUTSIDE RECORDS SUMMARY | 2025-04-03 02:30 | XMS_ITS ---
Author Organization Jensen Mark MD Address [address] [place], [place] [id number] Care Team Providers Care Marketing Budget Analyst Name Role Phone Jensen Mark Primary Care Provider Results Component Value Reference Range Notes Complete Blood Count Auto Di ff (Not yet reviewed by provider) Interpretation: Performing Lab:[facility], [address] [place] [phone] Notes/Report: White Blood Count 8.3 4.8-10.8 X10*3/uL Red Blood Count 5.10 4.60-5.80 X10*6/uL Hemoglobin 16.4 14.0-18.0 g/dl Hematocrit 48.9 42.0-52.0 % Mean Corpuscular Volume 95.9 80.0-98.0 fL Mean Corpuscular Hemoglobin 32.2 27.0-33.0 pg Mean Corpuscular HGB Conc 33.5 31.0-36.0 g/dl Red Cell Distribution Width 13.5 11.0-16.0 % Platelet Count 219 160-400 X10*3/uL Mean Platelet Volume 10.6 9.4-12.4 fL Neutrophils Percent Auto 58.4 45-73 % Imm Gran Pct Auto 0.5 0.0-0.4 % Lymphocytes Percent Auto 26.3 20-40 % Monocytes Percent Auto 12.2 2-11 % Eosinophils Percent Auto 2.2 0-4 % Basophils Percent Auto 0.4 0-2 % NRBC Pct Auto 0.0 0.0-0.2 /100WBC Neutrophils Absolute Auto 4.9 2.0-8.3 x10*3/u L Imm Gran Abs Auto 0.04 0.00-0.03 X10*3/uL Lymphocytes Absolute Auto 2.2 1.2-4.9 X10*3/u L Monocytes Absolute Auto 1.0 0.1-1.2 X10*3/uL Eosinophils Absolute Auto 0.2 0.0-0.4 X10*3/u L Basophils Absolute Auto 0.0 0.0-0.2 X10*3/uL NRBC Abs Auto 0.000 0.0-0.012 X10*3/uL Comprehensive Mousie. Panel Fa (Not yet reviewed by provider) Interpretation: Performing Lab:[address] [id number] Notes/Report: Sodium 140 135-145 mmol/L Potassium 4.4 3.3-5.1 mmol/L Chloride 108 96-108 mmol/L Carbon Dioxide 27 22-29 mmol/L Anion Gap 9 12-20 Blood Urea Nitrogen 15 9-16 mg/dL Creatinine 0.67 0.5-1.4 mg/dL Estimated Glomerular Filt Rate > 60 Chronic Kidney Disease: Estimated GFR < 60 mL/min/1.73m2 Severe Kidney Disease: Estimated GFR < 15 mL/min/1.73m2 Glucose Fasting 101 60-99 mg/dL A fasting glucose from 100-125 mg/dl is considered impaired (pre-diabetes). Calcium 9.0 8.4-10.2 mg/dL Bilirubin Total 0.6 0.0-1.0 mg/dL Aspartate Amino Transferase 25 5-37 U/L Alanine Aminotransferase 26 0-40 U/L Total Protein 6.6 6.5-8.0 g/dL Albumin Level 4.1 3.5-5.0 g/dL Alkaline Phosphatase 89 39-117 U/L Lipid Panel (Not yet reviewe d by provider) Interpretation: Performing Lab:[address] [phone] Notes/Report: Triglycerides 55 <150 mg/dL Desirable Triglyceride: less than 150 mg/dL Borderline High Triglyceride 150-199 mg/dL High Triglyceride: 200-499 mg/dL Very High Triglyceride: greater than or equal to 5OO mg/dL Cholesterol 134 <200 mg/dL Desirable Cholesterol: less than 200 mg/dL Borderline High Cholesterol: 200-239 mg/dL High Cholesterol: greater than 239 mg/dL LDL Cholesterol Calculated 63 <100 mg/dL Desirable LDL: less than 100 mg/dL Near Optimal/Above Optimal LDL: 110-129 mg/dL Borderline High LDL: 130-159 mg/dL High LDL: 160-189 mg/dL Very High LDL: greater than or equal to 190 mg/dL HDL Cholesterol 60 >40 mg/dL Desirable HDL: greater than 40 mg/dL Note: This HDL assay may give artificially low results in patients with liver disease. PSA,Total (Free>4and<10) (No t yet reviewed by provider) Interpretation: Performing Lab:[address] [phone] Notes/Report: PSA,Total (Free>4and<10) 1.07 0.00-4.00 ng/mL A Free PSA was not [...] i Chemiluminescent Microparticle Immunoassay (CMIA) Microalbumin, Random (Not ye t reviewed by provider) Interpretation: Performing Lab:[address] [address] Notes/Report: Creatinine Urine 99.37 Microalbumin Urine 373.0 Microalbum/Creatinine Ratio Ur 375.3 <30 ug/mg cr Albumin/Creatinine Ratio Reference Ranges: Normal: < 30 ug/mg creatinine Microalbuminuria: 30 - 300 ug/mg creatinine Clinical Albuminuria: > 300 ug/mg creatinine Hemoglobin A1c (Not yet revi ewed by provider) Interpretation: Performing Lab:[facility], [address] [place] [phone] Notes/Report: Hemoglobin A1c % 7.2 <6.0 % Hemoglobin A1C Reference Range Adults: 4.8 - 6.0 % Non diabetic: < 6.0 % Goal: < 7.0 % Additional Action Suggested: > 8.0 % Note: Hemoglobin A1c results are invalid for patients with abnormal amounts of HbF. Blood transfusions may impact the HbA1c concentration in the patient sample. Estimated Average Glucose 160 eAG = Estimated average glucose which is %A1C expressed as average glucose, using the formula of the [id number] Average Glucose study (ADAG), Diabetes Care, Vol.31,#8, 2007 UA ClnCatch+Micro w/rflx Cul t (Not yet reviewed by provider) Interpretation: Performing Lab:[facility], [address] [place] [phone] Notes/Report: Urine, Clean Catch Color Urine Yellow Appearance Urine Clear PH 6.0 5.0-9.0 Glucose Urine UA Negative Negative mg/dL Urine Blood Negative Negative Specific [employer] - Urine 1.020 1.005-1.025 Urine Protein 100 (2+) Neg-Trace mg/dL Urine Ketones Negative Negative mg/dL Nitrite Urine Negative Negative Leukocyte Esterase Urine Negative Negative RBC Urine 0-2 0-2 /HPF WBC Urine 0-5 0-5 /HPF Squamous Epithelial Cell Urine 0-2 0-2 /HPF Bacteria Urine None Seen None Seen Hyaline Casts Urine 0-2 0-2 /LPF REASON FOR VISIT yearly fasting labs Encounters Encounter Location Date Provider Diagnosis Jensen Mark MD [address] [place] [address] [address] [place], [place] [phone] 04/03/2025 Jensen Mark Essential hypertensi on I10 ; Pure hypercholesterolemia E78.00 ; Type 2 diabetes mellitus without complication E11.9 and Prostatism N40.0 Assessments Encounter Date Diagnosis (ICD Code) Assessment Notes Treatment Notes Treatment Clinical Notes Section Notes 04/03/2025 Essential hypertensi on (ICD-10 - I10) 04/03/2025 Pure hypercholesterolemia (ICD-10 - E78.00) 04/03/2025 Type 2 diabetes hi itus without complication (ICD-10 - E11.9) 04/03/2025 Prostatism (ICD-10 - N40.0) Plan Of Treatment Pending Test Test Name Order Date Complete Blood Count Auto Diff Comprehensive Mousie. Panel Fast Lipid Panel 04/03/2025 PSA,Total (Free>4and<10) 04/03/2025 Microalbumin, Random 04/03/2025 Hemoglobin A1c 04/03/2025 UA ClnCatch+Micro w/rflx Cult 04/03/2025 Next Appt Details Provider Name:Jensen Summers ier, 04/14/2025 09:30:00 AM, [address], [address], [place], [place], [id number], Progress Notes * Franky WADEDOB:1950 (75 yo M)Acc No.[id number]:04/03/2025 Progress Note Patient: Franky LAKE Provider: Chelsie Mark MD :1950 A ge:75 Y S ex:Male Date:04/03/2025 Address: [address], [place], [id number] Subjective: * Chief Complaints: * 1 . Yearly fasting labs. * Medical History: Objective: * Vitals: Assessment: * Assessment: 1. E ssential hypertension - I10 (Primary) 2 . P ure hypercholesterolemia - E78.00 3 . T ype 2 diabetes mellitus without complication - E11.9 ?4. P rostatism - N40.0 Plan: * Treatment: 2. P ure hypercholesterolemia L AB: Complete Blood Count Auto Diff (Collection Date & Time - 04/03/2025 07:30 AM) L AB: Comprehensive Mousie. Panel Fast (Collection Date & Time - 04/03/2025 07:30 AM) L AB: Lipid Panel (Collection Date & Time - 04/03/2025 07:30 AM) L AB: PSA,Total (Free>4and<10) (Collection Date & Time - 04/03/2025 07:30 AM) L AB: Microalbumin, Random (Collection Date & Time - 04/03/2025 07:30 AM) L AB: Hemoglobin A1c (Collection Date & Time - 04/03/2025 07:30 AM) L AB: UA ClnCatch+Micro w/rflx Cult (Collection Date & Time - 04/03/2025 07:30 AM) 3. T ype 2 diabetes mellitus without complication L AB: Complete Blood Count Auto Diff (Collection Date & Time - 04/03/2025 07:30 AM) L AB: Comprehensive Mousie. Panel Fast (Collection Date & Time - 04/03/2025 07:30 AM) L AB: Lipid Panel (Collection Date & Time - 04/03/2025 07:30 AM) L AB: PSA,Total (Free>4and<10) (Collection Date & Time - 04/03/2025 07:30 AM) L AB: Microalbumin, Random (Collection Date & Time - 04/03/2025 07:30 AM) L AB: Hemoglobin A1c (Collection Date & Time - 04/03/2025 07:30 AM) L AB: UA ClnCatch+Micro w/rflx Cult (Collection Date & Time - 04/03/2025 07:30 AM) 4. P rostatism L AB: Complete Blood Count Auto Diff (Collection Date & Time - 04/03/2025 07:30 AM) L AB: Comprehensive Mousie. Panel Fast (Collection Date & Time - 04/03/2025 07:30 AM) L AB: Lipid Panel (Collection Date & Time - 04/03/2025 07:30 AM) L AB: PSA,Total (Free>4and<10) (Collection Date & Time - 04/03/2025 07:30 AM) L AB: Microalbumin, Random (Collection Date & Time - 04/03/2025 07:30 AM) L AB: Hemoglobin A1c (Collection Date & Time - 04/03/2025 07:30 AM) L AB: UA ClnCatch+Micro w/rflx Cult (Collection Date & Time - 04/03/2025 07:30 AM) * Procedure Codes: 3 6415 VENIPUNCT, ROUTINE* * * The named appointment provid er may or may not be the originator of this progress note, and it is not deemed complete until electronically signed by the appointment provider. Sign off status: Pending * Provider: Chelsie Mark MD Date: 1 Generated for Mary murray/Yuliana/Baldomeroitting on: 12:13 PM EST
[2025-04-03 10:44] LABS: MANUAL DIFF FLAG NO
[2025-04-03 10:53] LABS: Hematocrit 48.9 % (42.0-52.0); Hemoglobin 16.4 g/dl (14.0-18.0); Imm Gran Abs Auto 0.04 X10*3/uL (0.00-0.03); Imm Gran Pct Auto 0.5 % (0.0-0.4); Lymphocytes Absolute Auto 2.2 X10*3/uL (1.2-4.9); Mean Corpuscular HGB Conc 33.5 g/dl (31.0-36.0); Mean Corpuscular Hemoglobin 32.2 pg (27.0-33.0); Mean Corpuscular Volume 95.9 fL (80.0-98.0); NRBC Abs Auto 0.000 X10*3/uL (0.0-0.012); NRBC Pct Auto 0.0 /100WBC (0.0-0.2); Platelet Count 219 X10*3/uL (160-400); Red Blood Count 5.10 X10*6/uL (4.60-5.80); White Blood Count 8.3 X10*3/uL (4.8-10.8)
[2025-04-03 10:58] LABS: Appearance Urine Clear; Glucose Urine UA Negative (Negative); PH 6.0 (5.0-9.0); Specific Gravity - Urine 1.020 (1.005-1.025); UMIC TRIGGER UACC YES
[2025-04-03 11:18] LABS: Alanine Aminotransferase 26 U/L (0-40); Albumin Level 4.1 g/dL (3.5-5.0); Alkaline Phosphatase 89 U/L (39-117); Anion Gap 9 (12-20); Aspartate Amino Transferase 25 U/L (5-37); Blood Urea Nitrogen 15 mg/dL (9-16); Calcium 9.0 mg/dL (8.4-10.2); Carbon Dioxide 27 mmol/L (22-29); Chloride 108 mmol/L (96-108); Cholesterol 134 mg/dL (<200); Estimated Glomerular Filt Rate > 60; HDL Cholesterol 60 mg/dL (>40); Potassium 4.4 mmol/L (3.3-5.1); Sodium 140 mmol/L (135-145); Total Protein 6.6 g/dL (6.5-8.0); Triglycerides 55 mg/dL (<150)
[2025-04-03 11:39] LABS: PSA,Total (Free>4and<10) 1.07 ng/mL (0.00-4.00)
[2025-04-03 11:42] LABS: Microalbum/Creatinine Ratio Ur 375.3 ug/mg cr (<30)
--- OUTSIDE RECORDS SUMMARY | 2025-04-03 12:12 | XMS_ITS | Patient Health Record ---
Author Organization [facility] Address [address] [place] [address] Care Team Providers Care Automation Qa Analyst Name Role Phone Jensen Mark MD Primary Care Provider Esa Cochran [phone] Allergies No Known Allergies Reason For Referral No Information Medications Medication SIG (Take, Route, Frequency, Duration) Notes Start Date End Date Status Atorvastatin Calcium 80 MG Tablet 1 tablet Orally Once a day Active metFORMIN HCl 500 MG Tablet 1 tablet wit h meals Orally Twice a day Active Multivitamin Adults 50+ - Tablet as directed Orally once a day Active Tamsulosin HCl 0.4 MG Capsule TAKE ONE C APSULE BY MOUTH TWO TIMES A DAY Oral; Duration: 90 Active Irbesartan 150 MG Tablet TAKE ONE TABLET BY MOUTH EVERY DAY Oral; Duration: 90 Active Telmisartan 40 MG Tablet 1 tablet Orally Once a day Active Escitalopram Oxalate 20 MG Tablet 0.5 tablet Orally Once a day Active Cyclobenzaprine HCl 5 MG Tablet TAKE ONE TABLET BY MOUTH THREE TIMES A DAY NEEDED FOR 10 DAYS Oral; Duration: 10 Active Budesonide 3 MG Capsule Delayed Release Particles 1 Orally Once a day 07/09/2022 Active Immunizations Vaccine Route Administration Date Status Comme nts Influenza Unknown 01/21/2022 Administered Influenza Unknown 04/27/2024 Refused Social History Tobacco Use: Social History Observation Description Date Details (start date - stop date) Current Smoker NA - NA Social History Drugs/Alcohol: Social Info Question Answer Notes Alcohol Screen Did you have a drink containing alcohol in the past year? No Points 0 Interpretation Negative Tobacco Use: Social Info Question Answer Notes Tobacco Use/Smoking Patient is a current smoker How often do you smoke cigarettes? every day How many cigarettes a day do you smoke? 21-30 How soon after you wake up do you smoke your first cigarette? 6-30 minutes Are you interested in quitting? Not ready to quit Additional Details Category Social Info Options Details Miscellaneous: Marital status: Occupation: Retired/Works Pa rt-time Section Notes: Smoker 1 1/2 ppd; 1 drink pe r night Smoker 1 1/2 ppd; 1 drink pe r night Smoker 1 1/2 ppd; Smoker 1 1/2 ppd; Smoker 1 1/2 ppd; Problems Problem Type SNOMED Code ICD Code Onset Dates Problem Status W/U Status Risk Notes Problem Screening for malignant neoplasm of colon (090909337) Encounter for screening for malignant neoplasm of colon (Z12.11) Active confirmed Problem Weight loss (574518023) Weight loss (R63.4) Active confirmed Problem Diverticular disease of colon (114272825) Diverticulosis of large intestine without perforation or abscess without bleeding (K57.30) Active confirmed Problem Preprocedural examination (367956445483416) Preprocedural examination (Z01.818) Active confirmed Problem Diarrhea (31699548) Diarrhea, unspecified type (R19.7) Active confirmed Problem Lymphocytic colitis (9701273763) Lymphocytic colitis (K52.832) Active confirmed Vital Signs Temperature 97.7 degrees Fahrenheit 04/27/2024 Blood pressure diastolic 00 mm Hg 04/27/2024 Height 70 in 04/27/2024 Blood pressure systolic 000 mm Hg 04/27/2024 Weight 152 lbs 04/27/2024 BMI 21.81 kg/m2 04/27/2024 Encounters Encounter Location Date Provider Diagnosis [facility] [address] [place] [phone] 04/27/2024 Esa Ramirez Diarrhea, unspecifie d type R19.7 and Lymphocytic colitis K52.832 [facility] [address] [place] [phone] 04/28/2024 Esa Ramirez [facility] [address] [place] [phone] 12/12/2024 Esa Ramirez Assessments Encounter Date Diagnosis [...] Name:Esa Ramirez , 04/28/2025 01:00:00 PM, [address], [address], [place], [address], Insurance Providers Payer Name Payer Address Payer Phone Subscriber Number Group Number Insured Name Patient Relationship to Insured Coverage Start Date Coverage End Date MEDICARE OF [place] [address] [place] [address] [id number] FRANKY LANGSOTN Self - patient is the insured MEDEX ATT[employer] CLAIMS [address] [place] [address] [phone] [id number] FRANKY LANGSTON Self - patient is the insured Medical (General) History Medical History History ICD Code Denies NE,CVA,renal disease NIDDM-on Metformin HTN Hyperlipidemia AAA---followed by [...]
--- OUTSIDE RECORDS SUMMARY | 2025-04-03 12:12 | XMS_ITS | Patient Health Record ---
Author Organization Jensen Mark MD Address [address] [place], [place] [id number] Care Team Providers Care Coke Crusher Operator Name Role Phone Jnesen Mark Primary Care Provider Allergies No Known Allergies Results Component Value Reference Range Notes Hemoglobin A1c Reviewed date:06/30/2024 10:06:28 AM Interpretation: Performing Lab: Notes/Report: Hemoglobin A1c 8.5 Hemoglobin A1c Reviewed date:09/30/2024 10:21:47 AM Interpretation: Performing Lab: Notes/Report: Hemoglobin A1c 8.6 Hemoglobin A1c Reviewed date:12/29/2024 10:40:09 AM Interpretation: Performing Lab: Notes/Report: Hemoglobin A1c 7.5 Liver Panel Reviewed date:09/23/2024 04:37:47 PM Interpretation: Performing Lab:[facility], [address] [place] [phone] Notes/Report: Bilirubin Total 0.5 0.0-1.0 mg/dL Bilirubin Direct 0.2 0.0-0.5 mg/dL Aspartate Amino Transferase 27 5-37 U/L Alanine Aminotransferase 21 0-40 U/L Total Protein 6.7 6.5-8.0 g/dL Albumin Level 4.1 3.5-5.0 g/dL Alkaline Phosphatase 92 39-117 U/L Lipid Panel with Reflex Reviewed date:09/23/2024 04:36:03 PM Interpretation: Performing Lab:[facility], [address] [place] [phone] Notes/Report: Triglycerides 53 <150 mg/dL Desirable Triglyceride: [...] low results in patients with liver disease. Complete Blood Count Auto Di ff (Not yet reviewed by provider) Interpretation: Performing Lab:[facility], [address] [place] [phone] Notes/Report: White Blood Count 8.3 4.8-10.8 X10*3/uL [...] 0.0-0.2 /100WBC Neutrophils Absolute Auto 4.9 2.0-8.3 x10*3/uL Imm Gran Abs Auto 0.04 0.00-0.03 X10*3/uL Lymphocytes Absolute Auto 2.2 1.2-4.9 X10*3/uL Monocytes Absolute Auto 1.0 0.1-1.2 X10*3/uL Eosinophils Absolute Auto 0.2 0.0-0.4 X10*3/uL Basophils Absolute Auto 0.0 0.0-0.2 X10*3/uL NRBC Abs Auto 0.000 0.0-0.012 X10*3/uL Comprehensive Comstock. Panel Fa st (Not yet reviewed by provider) Interpretation: Performing Lab:[facility], [address] [place] [phone] Notes/Report: Sodium 140 135-145 mmol/L Potassium 4.4 [...] yet reviewe d by provider) Interpretation: Performing Lab:[facility], [address] [place] [phone] Notes/Report: Triglycerides 55 <150 mg/dL Desirable Triglyceride: [...] t yet reviewed by provider) Interpretation: Performing Lab:[address] [phone] Notes/Report: PSA,Total (Free>4and<10) 1.07 0.00-4.00 ng/mL A [...] ye t reviewed by provider) Interpretation: Performing Lab:[address] [phone] Notes/Report: Creatinine Urine 99.37 Microalbumin Urine 373.0 Microalbum/Creatinine Ratio Ur 375.3 <30 ug/mg cr Albumin/Creatinine Ratio Reference Ranges: Normal: < 30 ug/mg creatinine Microalbuminuria: 30 - 300 ug/mg creatinine Clinical Albuminuria: > 300 ug/mg creatinine Hemoglobin A1c (Not yet revi ewed by provider) Interpretation: Performing Lab:[address] [address] Notes/Report: Hemoglobin A1c % 7.2 <6.0 % [...] average glucose, using the formula of the Y9U-Ptczavs Average Glucose study (ADAG), Diabetes Care, Vol.31,#8, Nov. 2007 UA ClnCatch+Micro w/rflx Cul t (Not yet reviewed by provider) Interpretation: Performing Lab:[facility], [address] [place] [phone] Notes/Report: Urine, Clean Catch Color Urine Yellow Appearance Urine Clear PH 6.0 5.0-9.0 Glucose Urine UA Negative Negative mg/dL Urine Blood Negative Negative Specific [place] - Urine 1.020 1.005-1.025 Urine Protein 100 (2+) Neg-Trace mg/dL Urine Ketones Negative Negative mg/dL Nitrite Urine Negative Negative Leukocyte Esterase Urine Negative Negative RBC Urine 0-2 0-2 /HPF WBC Urine 0-5 0-5 /HPF Squamous Epithelial Cell Urine 0-2 0-2 /HPF Bacteria Urine None Seen None Seen Hyaline Casts Urine 0-2 0-2 /LPF Glucose, finger stick Reviewed date:06/30/2024 09:56:15 AM Interpretation: Performing Lab: Notes/Report: Value 175 Glucose, finger stick Reviewed date:09/30/2024 10:17:34 AM Interpretation: Performing Lab: Notes/Report: Value 365 Glucose, finger stick Reviewed date:10/27/2024 01:41:55 PM Interpretation: Performing Lab: Notes/Report: Value 325 Glucose, finger stick Reviewed date:12/29/2024 10:33:43 AM Interpretation: Performing Lab: Notes/Report: Value 110 Glucose, finger stick Reviewed date:02/02/2025 09:54:06 AM Interpretation: Performing Lab: Notes/Report: Value 274 Hold Gold Reviewed date:09/23/2024 04:33:10 PM Interpretation: Performing Lab:[facility], [address] [place] [phone] Notes/Report: Hold Gold See Note Specimen held untested for 24 hours; Call to request Chemistry testing. NM cardiolite stress test Reviewed date:11/25/2024 02:55:27 PM Interpretation: Performing Lab: Notes/Report: [address] [address] Nuclear Medicine Report Signed Patient: Franky Wade MR#: [id number] 904 : 1950 Acct:[id number] Age/Sex: 74 / M ADM Date: 11/22/24 Loc: [facility] Attending Dr: Mahendra Nj MD Ordering Physician: Mahendra Nj MD Date of Service: 11/22/24 Procedure(s): NH cardiolite stress test Accession Number(s): [id number] cc: Jensen Mark MD; Mahendra Nj MD [...] 11/23/24 1655 DD/ 0801 TD/TT: 11/23/24 1345 Human Resources Assistant: [place] [address] Nuclear Medicine Report Signed Patient: Margot Wade tt P MR#: [id number] 904 : 1950 Acct:[id number] Age/Sex: 74 / M ADM Date: 11/22/24 Loc: .[facility] Attending Dr: Kylee Nj MD Ordering Physician: Mahendra Nj MD Date of Service: 11/22/24 Procedure(s): NM cardiolite stress test Accession Number(s): [id number] cc: Jensen Mark MD; Mahendra Nj MD [...] 11/23/24 1655 DD/ 0801 TD/TT: 11/23/24 1345 Human Resources Assistant: Complete Blood Count no Diff Reviewed date:12/22/2024 12:18:11 PM Interpretation: Performing Lab:[facility], [address] [place] [phone] Notes/Report: White Blood Count 6.9 4.8-10.8 X10*3/uL [...] INR Reviewed date:12/22/2024 12:17:23 PM Interpretation: Performing Lab:[facility], [address] [place] [phone] Notes/Report: Prothrombin Time 10.8 10.9-12.4 [employer] [...] Panel Reviewed date:12/22/2024 12:19:12 PM Interpretation: Performing Lab:[facility], [address] [place] [phone] Notes/Report: Sodium 141 135-145 mmol/L Potassium 4.8 [...] CT SCAN Diagnosis [address] scan, est (R93.89) Referral Organization Jensen Mark MD Referring Provider First Name Jensen Referring Provider Last Name Jas Referring Provider Speciality Internal M edicine Referred Provider [place] Referred Provider Specialty Cardiology General Notes Cyndee Balderas 06/30/2024 10:44:59 AM >FAX REFERRAL TO [facility] FOR NEW PATIENT APPT, Cyndee Balderas [...] TABLET BY TAY TH EVERY DAY Active Tamsulosin HCl 0.4 MG TAKE 1 CAPSULE BY MOUTH TWICE A DAY for 90 Active Escitalopram Oxalate 20 MG TAKE 1 TABLET BY MOUTH EVERY DAY for 90 Active Cyclobenzaprine HCl 5 MG 1 tablet Orally 2 times a day for 30 days Not-Taking Ibuprofen 800 MG 1 tablet Orally as needed for 30 Not-Taking Atorvastatin Calcium 80 MG TAKE 1 [...] directed 14 units Subcutaneous daily 09/30/2024 Active Chantix Starting Month Maverick 0.5 MG X 11 & 1 MG X 42 as directed Orally one tab twice a day for 30 days 05/20/2019 Not-Taking metFORMIN HCl 1000 MG TAKE ONE TABLET BY MOUTH TWICE A DAY WITH MEALS Active Cyclobenzaprine HCl 5 MG 1 tablet [...] e vaccine at [facility] PPSV23 (Pnemovax) Unknown 02/21/2020 Administered Covid Vaccine Unknown 07/06/2020 Administered Pfizer Covid Vaccine Unknown 07/27/2020 Administered Pfizer Influenza High Dose Unknown 02/03/2021 Administered SARS-COV-2 Pfizer Unknown 01/25/2021 Administered Fluarix Quadrivalent IM Intramuscular 03/11/2022 Administered Prevnar 13 Unknown 09/11/2014 Refused Prevnar 13 Unknown 09/23/2016 Refused Shingrix Unknown 11/13/2017 Refused Influenza High Dose Unknown 12/29/2024 Refused Influenza High Dose Unknown 02/02/2025 Refused Social History Tobacco Use: Social History [...] Status W/U Status Risk Notes Problem Neuropathy (150248190) Neuropathy (G62.9) Active confirmed Problem 94722242 Dysthymic disord er (F34.1) Active confirmed Problem 25096051 Prostatism (N40.0) Active confirmed Problem 451472460 Lung nodule seen on imaging study (R91.1) Active confirmed Problem 4425894 Panlobular emphy sema (J43.1) Active confirmed Problem 797656963 Lumbar disc dise ase (M51.9) Active confirmed Problem Coronary artery disease (28421604) Coronary artery disease (I25.10) Active confirmed Problem 45357981 Essential hypertension (I10) Active confirmed Problem 24109325 Type 2 diabetes mellitus without complication (E11.9) Active confirmed Problem Diabetic peripheral neuropathy associated with type 2 diabetes mellitus (8093424450622) 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) Active confirmed Problem 701529446 Lung nodule (R91.1) Active confirmed Problem 04884513 Type 2 diabetes, controlled, with neuropathy (E11.40) Active confirmed Problem 52736120 Current smoker (F17.200) Active confirmed Problem 500118810 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) Active confirmed Problem 914829796 Vasculogenic ere ctile dysfunction, unspecified vasculogenic erectile dysfunction type (N52.9) Active confirmed Problem 87919694 Abdominal aortic aneurysm (AAA) without rupture (I71.4) Active confirmed Problem 1290352790 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) Active confirmed Problem 284256553 Pure hypercholesterolemia (E78.00) Active confirmed Problem Hypercholesterolemia (77433191) Hypercholesterolemia (E78.00) Active confirmed Problem 53990880 Bilateral carpal tunnel syndrome (G56.03) Active confirmed Problem 7433163 Peyronie's disea se (N48.6) Active confirmed Problem 31803837 Aortic aneurysm without rupture, unspecified portion of aorta (I71.9) Active confirmed Problem 53494686333183465 Abnormal CT sc an, chest (R93.89) Active confirmed Problem 657519630 Lumbar disc herniation (M51.26) Active confirmed Problem 899741914 Pain, penile (N48.89) Active confirme d Problem 035152526 Microscopic coli tis, unspecified microscopic colitis type (K52.839) Active confirmed Vital Signs Blood pressure diastolic 74 mm Hg 02/02/2025 mimi ght is up 4 pounds since 12-29-24 Height 69 in 02/02/2025 weight is up 4 pounds since 12-29-24 Blood pressure systolic 130 mm Hg 02/02/2025 pako ht is up 4 pounds since 12-29-24 Weight 163 lbs 02/02/2025 weight is up 4 pounds since 12-29-24 BMI 24.07 kg/m2 02/02/2025 weight is up 4 pounds since 12-29-24 Encounters Encounter Location Date Provider Diagnosis Jensen Mark MD [address] [place] [id number] 09/23/2024 Jensen Mark Pure hypercholestero lemia E78.00 Jensen Mark MD [address] [place] [id number] 04/03/2025 Jensen Mark Essential hypertensi on I10 ; Pure hypercholesterolemia E78.00 ; Type 2 diabetes mellitus without complication E11.9 and Prostatism N40.0 Jensen Mark MD [address] [place] [id number] 06/30/2024 Jensen Mark Type 2 diabetes hi itus without complication E11.9 ; Abnormal CT scan, chest R93.89 ; Current smoker F17.200 and Lymphocytic colitis K52.832 Jensen Mark MD [address] [place] [id number] 09/30/2024 Jensen Mark Type 2 diabetes hi itus without complication E11.9 ; Neuropathy G62.9 ; Essential hypertension I10 and Pure hypercholesterolemia E78.00 Jensen Mark MD [address] [place] [id number] 10/27/2024 Jensen Mark Type 2 diabetes hi itus without complication E11.9 Jensen Mark MD [address] [place] [id number] 12/29/2024 Jensen Mark Type 2 diabetes hi itus without complication E11.9 ; Essential hypertension I10 and Abnormal stress test R94.39 Jensen Mark MD [address] [place] [id number] 02/02/2025 Jensen Mark Type 2 diabetes hi itus without complication E11.9 ; Panlobular emphysema J43.1 ; Current smoker F17.200 and Coronary artery disease I25.10 Jensen Mark MD [address] [place] [id number] 10/04/2024 Jensen Mark MD [address] [place] [address] Drive [address] [place], [place] [id number] 01/02/2025 Jensen Mark Type 2 diabetes hi itus without complication E11.9 Assessments Encounter Date Diagnosis (ICD Code) Assessment Notes Treatment Notes Treatment Clinical Notes Section Notes 09/23/2024 Pure hypercholesterolemia (ICD-10 - E78.00) 04/03/2025 Essential hypertensi on (ICD-10 - I10) 06/30/2024 Type 2 diabetes mellitus without complication [...] - I10) stable, will continue current regiment 02/02/2025 Type 2 diabetes mellitus without complication (ICD-10 - E11.9) is doing okay/ has not been checking sugars, will contonue current regiment 02/02/2025 Panlobular emphysema (ICD-10 - J43.1) shortness of breath is related to his copd 01/02/2025 Type 2 diabetes mellitus without complication (ICD-10 - E11.9) 04/03/2025 Pure hypercholesterolemia (ICD-10 - E78.00) 06/30/[address] scan, ch est (ICD-10 - R93.89) referral to cardiology/ REFFERRAL TO [facility] 09/30/2024 Essential hypertensi on (ICD-10 - I10) stable, will continue current regiment 12/29/2024 Abnormal stress test (ICD-10 - R94.39) followed by cardiology 02/02/2025 Current smoker (ICD- 10 - F17.200) is trying to quit. every week take 2 out of the pack/ doing it with . 04/03/2025 Type 2 diabetes mellitus without complication (ICD-10 - E11.9) 06/30/2024 Current smoker (ICD- 10 - F17.200) not wanting to stop 09/30/2024 Pure hypercholesterolemia (ICD-10 - E78.00) stable, will continue current regiment 02/02/2025 Coronary artery dise ase (ICD-10 - I25.10) has a totally occluded rt coronary and others not in need of therapy 04/03/2025 Prostatism (ICD-10 - N40.0) 06/30/2024 Lymphocytic colitis (ICD-10 - K52.832) doing well on bidesinide, will continue current regiment Plan Of Treatment Pending Test Test Name Order Date Electrocardiogram (EKG) 09/02/2013 MRI LUMBAR SPINE NO CONTRAST 09/17/2015 US ABD AORTA 03/14/2021 Stress Test 11/16/2018 Complete Blood Count Auto Diff 5 Comprehensive Comstock. Panel Fast Lipid Panel 04/03/2025 PSA,Total (Free>4and<10) 04/03/2025 Microalbumin, Random 04/03/2025 CT chest wo con 11/01/2021 CT chest wo con 12/18/2022 CT chest wo con 03/18/2022 US abdominal aortic aneurysm 04/18/2021 US abdominal aortic aneurysm 03/18/2022 Hemoglobin A1c 04/03/2025 UA ClnCatch+Micro w/rflx Cult 04/03/2025 Future Test Test Name Order Date CT CHEST NO CONTRAST 11/09/2020 CT chest wo con 11/08/2021 CT chest wo con 03/18/2022 CT chest wo con 07/16/2022 Next Appt Details Provider Name:Jensen wade, 04/14/2025 09:30:00 AM, [address] [place] [address], [address], [place], [place], [phone], Insurance Providers Payer Name Payer Address Payer Phone Subscriber Number Group Number Insured Name Patient Relationship to Insured Coverage Start Date Coverage End Date MEDICARE [facility] [place] [address] [place] [address] [id number] Franky Wade Self - patient is the insured MEDEX BCBS OF [facility] [address] [place] [address] [id number] Franky Wade Self - patient is the insured Medical (General) History Medical History History ICD Code colonoscopy 09/2006 - repeat 10 years; colonoscopy booked w/Dr. Ramirez for 03/20/17( pt cx and has not rebooked); had negative cologuard on 05/29/19). Colonoscopy 07/07/22 pending path
== END 2025-04-03 07:31 | disposition home or self-care (01) ==
LOC: HO.LNP 07:30
PROVIDERS: Visit Provider Internal Medicine
DX: I10 Essential (primary) hypertension (principal); E78.00 Pure hypercholesterolemia, unspecified; E11.9 Type 2 diabetes mellitus without complications; N40.0 Benign prostatic hyperplasia without lower urinary tract symptoms; Z12.5 Encounter for screening for malignant neoplasm of prostate
CPT/HCPCS: 80053; 80061; 81001; 82043; 82570; 83036; 84153; 85025